=== PATIENT | female | born 1995 | race Caucasian/White ===

== ENCOUNTER 2017-05-12 15:05 | Emergency (ER) | payer MEDICAID, SELFPAY ==
[2017-05-12 15:06] VITALS: BP 124/73; PULSE 103; RESP 16; TEMP 36.6; O2SAT 98; BMI 26.6
[2017-05-12] MEDS: DiphenhydrAMINE 50 MG/ML Syringe 25 MG IV (15:35)
[2017-05-12] MEDS: 0.9% Normal Saline 1,000 ML 1000 ML IV (15:36)
[2017-05-12] MEDS: proCHLORPERazine 10 MG/2 ML Vial IV (15:39)
--- NOTE | 2017-05-12 16:15 | ED.VISSUMM ---
- ER Visit Summary Date of Service: 05/12/17 Chief Complaint: [Headache] History of Present Illness: The patient is a 21 F [presents the emergency department with a headache that started 4 days ago. Patient states that the headache was intermittent for the first couple of days but has been continuous today. Patient describes the headache as throbbing behind both eyes and rates it as a 7 out of 10. Patient is also 16 weeks and was seen by BELLMAN DRIVER today and sent to the ER for further evaluation of her headache. Patient states that she has had similar prior headaches in the past that she thought were migraines. Patient denies any falls or head injuries. Patient denies any recent illness.] Patient does complain of nausea and photophobia. Patient describes seeing some dots in her vision the intermittently both eyes. Physical Examination: [HEENT-PERRLA, EOMI. Cranial nerves II through XII grossly intact. TMs clear. Mucous membranes moist. No adenopathy. Cardiovascular-regular rate and rhythm without murmur or ectopy Lungs-clear to auscultation, chest wall stable without crepitus or subcu emphysema Abdomen-normoactive bowel sounds, soft, nontender, no rebound or rigidity, no peritoneal signs. Neuro xazb-mrghgx-olux and heel andrew testing within normal limits, negative Romberg, negative pronator drift, fundi benign Extremities-intact ?4, normal range of motion, normal pulses, atraumatic] Test Results: [None indicated] Emergency Department Course and Treatment: [Patient had an IV line established and was medicated with Compazine, normal saline, and Benadryl. Patient also was given Decadron 10 mg IV. Patient's headache essentially resolved.] Treatment Plan: [Follow-up with her BELLMAN DRIVER or primary care physician within next 3-5 days. At this point I do not feel any further imaging is indicated. I do not feel patient has a dural venous sinus thrombosis. Patient has no family history of brain tumors or aneurysms.] Disposition: [Discharged home in stable condition] Impression: [Cephalgia- migraine] This note was generated with [employer] software. It may contain incorrect words, spelling, and punctuation that were not noted in review of the chart prior to signing ED Disposition - Plan for ED Patient: Chief Complaint: Headache Referrals: Dragan Rosenbaum MD [Primary Care Provider] -
--- NOTE | 2017-05-12 16:18 | ED.DCSUM_ITS ---
- ER Visit Summary Date of Service: 05/12/17 Chief Complaint: [Headache] History of Present Illness: The patient is a 21 F [presents the emergency department with a headache that started 4 days ago. Patient states that the headache was intermittent for the first couple of days but has been continuous today. Patient describes the headache as throbbing behind both eyes and rates it as a 7 out of 10. Patient is also 16 weeks and was seen by HIGH SCHOOL SOCIAL STUDIES TEACHER today and sent to the ER for further evaluation of her headache. Patient states that she has had similar prior headaches in the past that she thought were migraines. Patient denies any falls or head injuries. Patient denies any recent illness.] Patient does complain of nausea and photophobia. Patient describes seeing some dots in her vision the intermittently both eyes. Physical Examination: [HEENT-PERRLA, EOMI. Cranial nerves II through XII grossly intact. TMs clear. Mucous membranes moist. No adenopathy. Cardiovascular-regular rate and rhythm without murmur or ectopy Lungs-clear to auscultation, chest wall stable without crepitus or subcu emphysema Abdomen-normoactive bowel sounds, soft, nontender, no rebound or rigidity, no peritoneal signs. Neuro snjs-wqpmic-ymap and heel andrew testing within normal limits, negative Romberg, negative pronator drift, fundi benign Extremities-intact ?4, normal range of motion, normal pulses, atraumatic] Test Results: [None indicated] Emergency Department Course and Treatment: [Patient had an IV line established and was medicated with Compazine, normal saline, and Benadryl. Patient also was given Decadron 10 mg IV. Patient's headache essentially resolved.] Treatment Plan: [Follow-up with her HIGH SCHOOL SOCIAL STUDIES TEACHER or primary care physician within next 3-5 days. At this point I do not feel any further imaging is indicated. I do not feel patient has a dural venous sinus thrombosis. Patient has no family history of brain tumors or aneurysms.] Disposition: [Discharged home in stable condition] Impression: [Cephalgia- migraine] This note was generated with [employer] software. It may contain incorrect words, spelling, and punctuation that were not noted in review of the chart prior to signing ED Disposition - Plan for ED Patient: Chief Complaint: Headache Referrals: Dragan Rosenbaum MD [Primary Care Provider] -
--- NOTE | 2017-05-12 16:18 | ED.DEP ---
ED Disposition - Plan for ED Patient: Chief Complaint: Headache Instructions: ED Headache Migraine Referrals: Dragan Rosenbaum MD [Primary Care Provider] - 3-5 Days
[2017-05-12 16:30] VITALS: BP 106/66; PULSE 98; RESP 14; O2SAT 99
--- NOTE | 2017-05-12 16:31 | ED.RN ---
PT GIVEN WRITTEN AND VERBALIZES UNDERSTANDING OF DISCHARGE INSTRUCTIONS. PT IV D/C AND COVERED WITH 2X2 GAUZE DRESSING. PT AMBULATORY HOME. REPORTS BOYFRIEND IS COMING TO PICK HER UP. PT EDUCATED NOT TO DRIVE AFTER HAVING BENADRYL AND COMPAZINE BECAUSE OF SIDE EFFECTS.
== END 2017-05-12 16:33 | disposition home or self-care (01) ==
LOC: ED 15:20
PROVIDERS: Emergency Provider Emergency Medicine; Family Provider Family Medicine; PCP Family Medicine
DX: O99.89 Other specified diseases and conditions complicating pregnancy, childbirth and the puerperium (principal); G43.909 Migraine, unspecified, not intractable, without status migrainosus; Z3A.16 16 weeks gestation of pregnancy
CPT/HCPCS: 96361; 96374; 96375; 99283; J7050; A4216

== ENCOUNTER 2017-05-15 19:31 | Emergency (ER) | payer MEDICAID, SELFPAY ==
[2017-05-12 16:30] VITALS: BP 106/66
[2017-05-15 19:33] VITALS: BP 107/79; PULSE 107; RESP 15; TEMP 36.4; BMI 26.9
--- NOTE | 2017-05-15 20:46 | ED.DCSUM_ITS ---
- ER Visit Summary Date of Service: 05/15/17 Chief Complaint: [] URI symptoms, chest pain History of Present Illness: The patient is a 21 F [] ending of mild cough, midsternal chest discomfort, weakness during the peak of flu season. Patient reports she is 17 weeks . . Denies fevers. No other complaints at this time. Physical Examination: [] Afebrile, vital signs stable. HEENT reveals moist mucous membranes. No posterior oropharyngeal erythema. Cardiovascular exam is regular rate and rhythm. Lungs are clear to auscultation. Abdomen is gravid, soft, nontender. Test Results: [] X-ray: Negative Influenza swab: Negative. Emergency Department Course and Treatment: [] Patient was able to pass a p.o. challenge. Patient has a very benign presentation. Chest x-ray was negative. Patient was encouraged to follow-up with her primary care physician. Treatment Plan: [] Follow-up with PCP or ASSOCIATE ACCOUNTANT. Disposition: [] Discharge, stable. Impression: [] URI This note was generated with [employer] dictation software. It may contain incorrect words, spelling, and punctuation that were not noted in review of the chart prior to signing ED Disposition - Plan for ED Patient: Chief Complaint: General Illness Referrals: Dragan Rosenbaum MD [Primary Care Provider] -
--- NOTE | 2017-05-15 20:53 | RAD_ITS ---
STUDY: X-RAY CHEST REASON FOR EXAM: Female, 21 years old. Cough. TECHNIQUE: PA and lateral views of the chest. COMPARISON: None. FINDINGS: The lungs are clear and expanded. There is no demonstrated pleural abnormality. Normal size heart. Normal mediastinum and mendy. Normal visualized pulmonary arteries. Normal visualized aortic arch and descending thoracic aorta. Normal visualized thoracic spine. Normal visualized ribs, clavicles, and shoulders. There is no demonstrated abnormality of the visualized soft tissue structures of the upper abdomen. RAD/Chest PA and Lateral IMPRESSION: No acute cardiopulmonary process. Electronically Signed: Rocio Gallegos MD at 21:27 EST Tel , Service support ,
[2017-05-15 21:40] VITALS: BP 103/72; PULSE 63; RESP 18; O2SAT 98
--- NOTE | 2017-05-15 22:17 | ED.DEP ---
ED Disposition - Plan for ED Patient: Disposition: Home or Assisted Living Chief Complaint: General Illness Instructions: ED URI Viral Referrals: Dragan Rosenbaum MD [Primary Care Provider] -
== END 2017-05-15 22:32 | disposition home or self-care (01) ==
PROVIDERS: Emergency Provider Emergency Medicine; Family Provider Family Medicine; PCP Family Medicine
DX: O99.512 Diseases of the respiratory system complicating pregnancy, second trimester (principal); J06.9 Acute upper respiratory infection, unspecified; Z3A.17 17 weeks gestation of pregnancy
CPT/HCPCS: 71046; 87804; 99283

== ENCOUNTER 2017-07-25 00:45 | Emergency (ER) | payer MEDICAID, SELFPAY ==
[2017-07-25 00:46] VITALS: BP 129/72; PULSE 97; RESP 17; TEMP 36.5; O2SAT 95; BMI 30.7
--- NOTE | 2017-07-25 00:55 | EKG12_ITS ---
Test Reason : COUGH Blood Pressure : / mmHG Vent. Rate : 097 BPM Atrial Rate : 097 BPM P-R Int : 148 ms QRS Dur : 066 ms QT Int : 366 ms P-R-T Axes : 042 023 004 degrees QTc Int : 464 ms Normal sinus rhythm with sinus arrhythmia Normal ECG Confirmed by ANABEL VENEGAS, BLU ([id number]), video effects editor DEMETRIO SONG ([id number]) on 07/27/2017 2:32:12 PM Referred By: CD Confirmed By:BLU LITTLE MD
--- NOTE | 2017-07-25 00:55 | CT_ITS ---
STUDY: CTA CHEST REASON FOR EXAM: Female, 21 years old. Cough RADIATION DOSAGE (If Supplied By Facility): CTDIvol = ( 12.46 ) mGy, DLP = ( 458.14 ) mGycm TECHNIQUE: The examination was performed with the intravenous administration of 75ml ml of Isovue 370 contrast material. Post-processing of the angiographic images was performed, with multiplanar reformation and 3D reconstruction. Individualized dose optimization techniques were used for this CT. COMPARISON: None. FINDINGS: Evaluation of the pulmonary arterial vasculature is limited due to timing of the contrast bolus. There is no definitive central pulmonary embolism. Lobar, segmental and subsegmental branches are limited in evaluation due to admixture of contrast. Thoracic aorta demonstrates no aneurysmal dilatation or dissection. Normal heart and pericardium. Normal mediastinum. Normal hilar regions. Normal visualized trachea and bronchi. The lungs are well expanded. Normal pulmonary parenchyma. No confluent airspace infiltrate. There is a 10 mm nodule in the right perihilar region immediately anterior to the bronchovascular bundle. No pleural effusion or pneumothorax. Normal chest wall structures. Normal osseous structures. Normal visualized upper abdomen. CT/CTA Chest W/WO Contrast IMPRESSION: 1. No definitive evidence of acute pulmonary embolism with evaluation of the pulmonary arterial vasculature being markedly limited by the contrast bolus. 2. 10 mm right perihilar noncalcified nodule. Electronically Signed: Aurelio Dee MD at 2:23 EDT Tel , Service support ,
[2017-07-25 00:57] VITALS: O2SAT 96
[2017-07-25 00:59] VITALS: PULSE 85; RESP 17; O2SAT 99
--- NOTE | 2017-07-25 00:59 | ED.DCSUM_ITS ---
- ER Visit Summary Date of Service: 07/25/17 Chief Complaint: Cough History of Present Illness: The patient is a 21 F with a cough that started about 4 days ago. Intermittent. Dry. Today she is having sharp left-sided chest pain and shortness of breath. She has a history of exercise-induced asthma. She tried her inhaler, but it was not helping. She is 27 weeks , . No abdominal pain, bleeding, or discharge. No history of PE or DVT that she is aware of. No unilateral leg swelling or calf pain. Physical Examination: Heart rate 97. Otherwise vitals unremarkable. Afebrile. Sitting comfortably. No acute distress. Heart tachycardic but regular. Lungs clear. Skin normal. Calves soft and supple. Test Results: EKG shows sinus rhythm at a rate of 97. No sign of acute ischemia or infarction pattern. Will check labs and CTA. Emergency Department Course and Treatment: Patient is tachycardic with chest pain, shortness of breath, and cough. This is not similar to her prior asthma. She is . This is mildly concerning for PE. EKG, laboratory studies, and CT were performed. Risks of CT were discussed and the patient voiced understanding. EKG showed sinus rhythm at a rate of 97. Hemoglobin 10.9. Patient has no bleeding. Potassium 3.4, glucose 112, calcium 7.9. Troponin normal. CT was limited but there is no evidence of PE. She does have a right lung nodule, but nothing to explain her symptoms. heart tones were 148. Patient appears nontoxic and in no acute distress on reevaluation, vitals are stable. No new or worsening symptoms. I am not sure what is causing her symptoms. Does not appear to be a life-threatening process. She also does not have any symptoms related to her directly. No discharge, bleeding. No abdominal pain or contractions. heart tones appropriate. Patient will be discharged to follow-up with her doctor. Return for any new or worsening issues. Treatment Plan: As above Disposition: Discharge Impression: 1. 2. Right lung nodule 3. Chest pain, unclear etiology 4. Anemia This note was generated with [employer] software. It may contain incorrect words, spelling, and punctuation that were not noted in review of the chart prior to signing ED Disposition - Plan for ED Patient: Chief Complaint: Cough Referrals: Dragan Rosenbaum MD [Primary Care Provider] -
[2017-07-25 01:09] LABS: Absolute Lymphocyte Count 1.75 X10^3/ul (0.83-4.51); Absolute Neutrophil Count 5.2 X10^3/uL (2.0-7.7); Basophil# 0.01 X10^3/uL; Basophil% 0.1 % (0-1); Eosinophil# 0.19 X10^3/uL; Eosinophils% 2.5 % (0-5); Hematocrit 32.9 % (37-47); Hemoglobin 10.9 g/dl (12.0-15.0); Lymphocyte # 1.75 X10^3/ul (4.0); Lymphocyte % 22.7 % (19-41); Mean Corp Hgb Conc 33.1 g/gl (32-36); Mean Corpuscular Hgb 29.4 pg (27.0-32.0); Mean Corpuscular Volume 88.7 fL (81-99); Mean Platelet Vol. 8.8 fl (6.2-12.0); Monocyte# 0.54 X10^3/uL; Neutrophil # 5.23 X10^3/uL (2.7-7.7); Neutrophil % 67.7 % (47-70); POSITIVE COUNT NO; POSITIVE DIFFERENTIAL NO; POSITIVE MORPHOLOGY NO; Platelet Count 231 K/mm3 (150-450); RBC Distribution Width CV 13.4 % (11.6-14.6); RBC Distribution Width SD 42.9 fl (35.1-43.9); Red Blood Count 3.71 M/mm3 (4.2-5.4); White Blood Count 7.7 K/mm3 (4.4-11.0)
[2017-07-25 01:26] LABS: Anion Gap 8 (5-15); BUN 6 mg/dL (7-18); BUN/Creat Ratio 8.1 RATIO (10-20); Calcium,Total 7.9 mg/dL (8.5-10.1); Chloride 111 mmol/L (98-107); Creatinine, Serum 0.74 mg/dL (0.55-1.02); EST Glomerular Filtration Rate 107 mL/min (>60); Est Glom Filt Rate - Afr Amer 130 mL/min (>60); Estimated Creatinine Clearance 92.27 ml/min; Glucose 112 mg/dL (74-106); Potassium 3.4 mmol/L (3.5-5.1); Sodium Level 142 mmol/L (136-145)
--- NOTE | 2017-07-25 02:40 | ED.DEP ---
ED Disposition - Plan for ED Patient: Chief Complaint: Cough Instructions: ED Reactive Airway Disease Referrals: Dragan Rosenbaum MD [Primary Care Provider] - Additional Instructions: Also follow up with your ob doctor early this week.
[2017-07-25 02:43] VITALS: BP 110/73; PULSE 98; RESP 15; O2SAT 98
--- NOTE | 2017-07-25 02:47 | ED.RN ---
PT GIVEN WRITTEN AND VERBAL DISCHARGE INSTRUCTIONS AND PT VERBALIZES UNDERSTANDING. PT IV D/C AND COVERED WITH 2X2 GAUZE DRESSING. PT DENIES ANY QUESTIONS, AND IS TO FOLLOW UP WITH OB. PT ADVISED TO RETURN TO ER WITH ANY NEW OR WORSENED SX. PT DRESSES SELF AND AMBULATES OUT OF DEPT WITHOUT ASSISTANCE.
== END 2017-07-25 02:49 | disposition home or self-care (01) ==
LOC: ED 01:33
PROVIDERS: Emergency Provider Emergency Medicine; Family Provider Family Medicine; PCP Family Medicine
DX: O99.89 Other specified diseases and conditions complicating pregnancy, childbirth and the puerperium (principal); R91.1 Solitary pulmonary nodule; R07.9 Chest pain, unspecified; R00.0 Tachycardia, unspecified; O99.012 Anemia complicating pregnancy, second trimester; D64.9 Anemia, unspecified; O99.512 Diseases of the respiratory system complicating pregnancy, second trimester; J45.990 Exercise induced bronchospasm; Z3A.27 27 weeks gestation of pregnancy
CPT/HCPCS: 71275; 80048; 84484; 85025; 93005; 99285; Q9967

== ENCOUNTER 2017-07-30 19:18 | Outpatient (CLI) | payer MEDICAID, SELFPAY ==
[2017-07-30 20:02] VITALS: BMI 29.2
[2017-07-30 20:18] LABS: Mucous, Urine 0 SEEN /hpf (<or=2+); Red Blood Cells-Urine 0 SEEN /hpf (0-5)
[2017-07-30 20:19] LABS: Color, Urine Yellow (Yellow); Glucose, Dipstick Normal (Normal); Ketone-Dipstick Negative (Negative); Leukocyte Esterase-Dipstick Negative /ul (Negative); Nitrite-Dipstick Negative (Negative); Occult Blood-Urine Negative /ul (Negative); Protein-Dipstick Negative (Negative); Urine Bilirubin Dipstick Negative (Negative); Urine Clarity Cloudy (Clear); Urine Urobilinogen Normal (Normal)
[2017-07-30 20:36] LABS: Bacteria RARE /hpf (None Seen); Squamous Epithelial Cells - UA 5-10 SEEN /hpf (5-10); White Blood Cells 0-5 SEEN /hpf (0-5)
--- NOTE | 2017-07-30 22:57 | OB.TRI.NOTE ---
History of Present Illness Date of Service: 07/30/17 Was patient seen by the physician?: Yes Reason For Visit: R/O LABOR Date of Service: 07/30/17 Final BISHNU: 10/25/17 Final BISHNU Source: LMP Gestational age: 27 Weeks and 4 Days History of Present Illness: Presented to L&D with abdominal cramping that started intermittently since this am. Increased pain and back pain since 3pm today. Denies any vaginal bleeding, leakage of fluid, headache, scotoma, chest pain, shortness of breath, or dysuria. Not able to time cramping. Home Medications Medication Instructions Recorded Pnv No.122/Iron/Folic Acid 1 each PO DAILY 05/12/17 [ Multi Tablet] Albuterol Inhaler [Ventolin Hfa 1 - 2 puff INHALATION Q6H PRN PRN 07/25/17 (SP)] Allergies Penicillins Allergy (Unknown, Verified 07/30/17 20:03) Diarrhea family history nickel Allergy (Verified 07/30/17 20:03) Rash venom-honey bee [bee venom (honey bee)] Allergy (Verified 07/30/17 20:03) Swelling NST - FHR Rate Baby A Baseline: 130 Variability:: Moderate Accelerations:: 15 x 15 Decelerations:: None, Variable NST Reactive:: Yes FHR Category:: Category I Uterine Activity:: irritability Impression/Plan A: False Labor P: 1) PO hydration 2) Reviewed PTL precautions. No cervical change and improvement in abdominal pain. 3) UA negative. Eli Geronimo, MSN, PSYCHOLOGIST RESEARCH ASSISTANT, CNM
== END 2017-07-30 22:19 | disposition home or self-care (01) ==
LOC: WPOUT 19:57 → WP 19:57
PROVIDERS: Family Provider Family Medicine; PCP Family Medicine; Visit Provider Obstetrics & Gynecology
DX: O47.02 False labor before 37 completed weeks of gestation, second trimester (principal); Z3A.27 27 weeks gestation of pregnancy
CPT/HCPCS: 59025; 59050; 81001; 99218; G0378

== ENCOUNTER 2017-09-05 15:35 | Outpatient (CLI) | payer MEDICAID, SELFPAY ==
[2017-09-05 16:14] VITALS: BMI 30.9
[2017-09-05 16:41] LABS: Color, Urine Yellow (Yellow); Glucose, Dipstick 50 mg/dl (Normal); Ketone-Dipstick 5 mg/dl (Negative); Leukocyte Esterase-Dipstick Negative /ul (Negative); Nitrite-Dipstick Negative (Negative); Occult Blood-Urine Negative /ul (Negative); Protein-Dipstick 30 mg/dl (Negative); Urine Bilirubin Dipstick Negative (Negative); Urine Clarity Sl. Cloudy (Clear); Urine Urobilinogen Normal (Normal); Urine pH 6.5 (5.0 - 8.0)
--- NOTE | 2017-09-07 12:17 | OB.TRI.NOTE ---
History of Present Illness Date of Service: 09/05/17 Was patient seen by the physician?: Yes Reason For Visit: ABDOMINAL PAIN,DIZZINESS,NAUSEA Date of Service: 09/05/17 Final BISHNU: 10/25/17 Final BISHNU Source: LMP Gestational age: 33 Weeks and 1 Days History of Present Illness: Patient presented reporting increased abdominal pain, dizziness and nausea over last few hours. Patient was concerned that she may be in labor so she came to hospital for evaluation. Denied any LOF, VB or DFM. Patient reports increase in bladder pressure and reported dysuria a few days ago. Denies dysuria today. Home Medications Medication Instructions Recorded Pnv No.122/Iron/Folic Acid 1 each PO DAILY 05/12/17 [ Multi Tablet] Albuterol Inhaler [Ventolin Hfa 1 - 2 puff INHALATION Q6H PRN PRN 07/25/17 (SP)] Allergies Penicillins Allergy (Unknown, Verified 09/05/17 16:14) Diarrhea family history nickel Allergy (Verified 09/05/17 16:14) Rash venom-honey bee [bee venom (honey bee)] Allergy (Verified 09/05/17 16:14) Swelling - Pertinent Past Medical History Pertinent Past Medical History: See [facility] Record for review of Family Hx, PMH and Surg Hx Physical Exam Vitals: See Nursing note for vitals and physical exam NST - FHR Rate Baby A Baseline: 140 Variability:: Moderate Accelerations:: 15 x 15 Decelerations:: None NST Reactive:: Yes, Appropriate for gestational age FHR Category:: Category I Uterine Activity:: Uterine irritability noted on tocometer, no regular pattern noted Impression/Plan 21 y/o @ 33.1 weeks, Category I FHT P: 1) Per nursing staff, patients symptoms quickly resolved upon admission to triage 2) Urine macrodip overall negative though CCMS collected and sent d/t patient report of past dysuria a few days ago - will contact patient once results received. 3) Discharge patient to home, patient to f/u as scheduled in provider office. Dayanara RUIZ
== END 2017-09-05 17:40 | disposition home or self-care (01) ==
LOC: WPOUT 16:12 → WP 16:13
PROVIDERS: Family Provider Family Medicine; PCP Family Medicine; Visit Provider Advanced Practice Midwife
DX: O26.893 Other specified pregnancy related conditions, third trimester (principal); R10.9 Unspecified abdominal pain; R30.0 Dysuria; O99.89 Other specified diseases and conditions complicating pregnancy, childbirth and the puerperium; R42 Dizziness and giddiness; Z3A.33 33 weeks gestation of pregnancy
CPT/HCPCS: 59025; 59050; 81002; 87086; 87088; 99218; G0378

== ENCOUNTER 2017-09-11 16:35 | Outpatient (CLI) | payer MEDICAID, SELFPAY ==
[2017-09-11 18:17] VITALS: BMI 28.3
--- NOTE | 2017-11-09 23:17 | OB.TRI.NOTE ---
History of Present Illness Date of Service: 09/11/17 Was patient seen by the physician?: No Reason For Visit: ABD PAIN Final BISHNU Source: LMP Allergies Penicillins Allergy (Unknown, Verified 11/08/17 09:55) Diarrhea family history nickel Allergy (Verified 11/08/17 09:55) Rash venom-honey bee [bee venom (honey bee)] Allergy (Verified 11/08/17 09:55) Swelling - Pertinent Past Medical History Medical History: Past Medical History (Last Reviewed 11/08/17 @ 09:55 by Letitia Peraza) Asthma (Chronic) Surgical History: Past Surgical History (Last Reviewed 11/08/17 @ 09:55 by Letitia Peraza) History of placement of ear tubes S/P S/P tonsillectomy and adenoidectomy Impression/Plan NST for threatened PTL
== END 2017-09-11 18:10 | disposition home or self-care (01) ==
LOC: WPOUT 16:45 → WP 16:46
PROVIDERS: Family Provider Family Medicine; PCP Family Medicine; Visit Provider Obstetrics & Gynecology
DX: O60.00 Preterm labor without delivery, unspecified trimester (principal); Z3A.00 Weeks of gestation of pregnancy not specified
CPT/HCPCS: 59025; 59050; 99218; G0378

== ENCOUNTER 2017-09-12 00:12 | Outpatient (CLI) | payer MEDICAID, SELFPAY ==
[2017-09-12 01:36] VITALS: BMI 31.4
--- NOTE | 2017-09-12 08:14 | OB.TRI.NOTE ---
History of Present Illness Date of Service: 09/12/17 Reason For Visit: R/O LABOR Final BISHNU: 10/25/17 Final BISHNU Source: LMP Gestational age: 33 Weeks and 6 Days Allergies Penicillins Allergy (Unknown, Verified 09/12/17 01:42) Diarrhea family history nickel Allergy (Verified 09/12/17 01:42) Rash venom-honey bee [bee venom (honey bee)] Allergy (Verified 09/12/17 01:42) Swelling NST - FHR Rate Baby A Baseline: 130 Variability:: Moderate Accelerations:: 15 x 15 NST Reactive:: Yes Uterine Activity:: irregular Impression/Plan Reactive NST for threatened PTL
== END 2017-09-12 01:50 | disposition home or self-care (01) ==
LOC: WPOUT 01:06 → WP 01:06
PROVIDERS: Family Provider Family Medicine; PCP Family Medicine; Visit Provider Obstetrics & Gynecology
DX: O60.03 Preterm labor without delivery, third trimester (principal); Z3A.33 33 weeks gestation of pregnancy
CPT/HCPCS: 59025; 59050; 99218; G0378

== ENCOUNTER → 2017-10-01 17:23 | Outpatient (CLI) | payer MEDICAID, SELFPAY ==
[2017-10-01 18:29] LABS: Group B Strep DNA By PCR Negative (Negative); Internal Control PASS; Probe Check PASS; Specimen Processing Control PASS
== END ==
PROVIDERS: Family Provider Family Medicine; PCP Family Medicine; Visit Provider Obstetrics & Gynecology
DX: Z34.90 Encounter for supervision of normal pregnancy, unspecified, unspecified trimester (principal)
CPT/HCPCS: 87081; 87653

== ENCOUNTER → 2017-10-06 13:58 | Outpatient (CLI) | payer MEDICAID, SELFPAY ==
--- NOTE | 2017-10-06 14:00 | US_ITS ---
STUDY: SECOND AND THIRD TRIMESTER OBSTETRICAL ULTRASOUND - LIMITED REASON FOR EXAM: Female, 21 years old. growth . LMP: 01/18/2017 PRIOR ULTRASOUND: None. TECHNIQUE: Transabdominal ultrasound evaluation was performed. FINDINGS: There is a single intrauterine fetus. The fetus is in a cephalic presentation. There is demonstrated cardiac activity with a heart rate of 156 bpm. There is a normal amniotic fluid volume. The largest amniotic fluid pocket measures 4.6 cm. The amniotic fluid index (VLAD) is 9.9 cm. The placenta is anterior in location and is not low lying. There are Grade 1-2 placental changes. The cervix is not visualized. BIOMETRY: BPD: 8.9 cm: 36 weeks, 1 days HC: 32.4 cm: 36 weeks, 5 days AC: 32.3 cm: 36 weeks, 2 days FL: 6.9 cm: 85 weeks, 3 days Age by LMP: 37 weeks, 2 days. BISHNU by LMP: 10/25/2017. age by current US: 36 weeks, 1 days. BISHNU by current US: 11/02/2017. Estimated weight: 2828 grams, +/- 413 grams, 26 percentile. Gender: Female US/OB Limited With Biometrics IMPRESSION: 1. Single live intrauterine in vertex presentation 36 week 1 day gestation with an BISHNU of 11/02/2017, BISHNU by LMP 10/25/2017. 2. Anterior grade 1-2 placenta, not low-lying. 3. Cervix is obscured. 4. Amniotic fluid index 9.9 cm. 5. Estimated weight 2828 g/26 percentile. Electronically Signed: Renee Bacon MD at 6:41 EDT , Service support ,
== END ==
PROVIDERS: Family Provider Family Medicine; PCP Family Medicine; Visit Provider Obstetrics & Gynecology
DX: O36.5930 Maternal care for other known or suspected poor fetal growth, third trimester, not applicable or unspecified (principal); Z3A.36 36 weeks gestation of pregnancy
CPT/HCPCS: 76816

== ENCOUNTER 2017-10-10 17:40 | Outpatient (CLI) | payer MEDICAID, SELFPAY ==
[2017-10-10 17:54] VITALS: BMI 32.1
--- NOTE | 2017-10-10 19:05 | OB.TRI.NOTE ---
- Problem List (1) False labor Status: Acute History of Present Illness Date of Service: 10/10/17 Was patient seen by the physician?: Yes Reason For Visit: ROL Date of Service: 10/10/17 Final BISHNU Source: LMP History of Present Illness: contractions pressure and decreased movement Allergies Penicillins Allergy (Unknown, Verified 10/10/17 17:56) Diarrhea family history nickel Allergy (Verified 10/10/17 17:56) Rash venom-honey bee [bee venom (honey bee)] Allergy (Verified 10/10/17 17:56) Swelling - Pertinent Past Medical History Medical History: Past Medical History (Last Reviewed 10/07/17 @ 10:40 by Letitia Peraza) Asthma (Chronic) Surgical History: Past Surgical History (Last Reviewed 10/07/17 @ 10:40 by Letitia Peraza) History of placement of ear tubes S/P S/P tonsillectomy and adenoidectomy NST - FHR Rate Baby A Baseline: 130-140 Variability:: Moderate Accelerations:: 15 x 15 Decelerations:: None NST Reactive:: Yes FHR Category:: Category I Uterine Activity:: irreuglar Impression/Plan reactive nst decreased fm and false labor not dilated signficiantly dc home labor precautions kick counts
== END 2017-10-10 18:45 | disposition home or self-care (01) ==
LOC: WPOUT 17:48 → WP 17:50
PROVIDERS: Family Provider Family Medicine; PCP Family Medicine; Visit Provider Obstetrics & Gynecology
DX: O47.9 False labor, unspecified (principal); O36.8190 Decreased fetal movements, unspecified trimester, not applicable or unspecified; O99.519 Diseases of the respiratory system complicating pregnancy, unspecified trimester; J45.909 Unspecified asthma, uncomplicated; Z3A.00 Weeks of gestation of pregnancy not specified
CPT/HCPCS: 59025; 59050; 99218; G0378

== ENCOUNTER 2017-10-13 22:18 | Outpatient (CLI) | payer MEDICAID, SELFPAY ==
[2017-10-13 22:56] VITALS: BMI 32.2
[2017-10-13] MEDS: Acetaminophen 500 MG Tablet 1000 MG PO (23:50)
[2017-10-13 23:54] LABS: Bacteria 0 SEEN /hpf (None Seen); Mucous, Urine 0 SEEN /hpf (<or=2+); Red Blood Cells-Urine 0 SEEN /hpf (0-5); White Blood Cells 0 SEEN /hpf (0-5)
[2017-10-13 23:55] LABS: Color, Urine Yellow (Yellow); Glucose, Dipstick Normal (Normal); Ketone-Dipstick 5 mg/dl (Negative); Leukocyte Esterase-Dipstick Negative /ul (Negative); Nitrite-Dipstick Negative (Negative); Occult Blood-Urine Negative /ul (Negative); Protein-Dipstick Negative (Negative); Specific Gravity, Urine 1.005 (1.002-1.030); Urine Bilirubin Dipstick Negative (Negative); Urine Clarity Sl. Cloudy (Clear); Urine Urobilinogen Normal (Normal)
[2017-10-14] LABS: Squamous Epithelial Cells - UA 0-5 SEEN /hpf (5-10)
--- NOTE | 2017-10-14 02:53 | OB.TRI.NOTE ---
- Problem List (1) False labor Status: Acute History of Present Illness Date of Service: 10/14/17 Was patient seen by the physician?: Yes Reason For Visit: R/O LABOR Date of Service: 10/14/17 Final BISHNU: 10/24/17 Final BISHNU Source: LMP Gestational age: 38 Weeks and 4 Days History of Present Illness: 21 yo @ 38 weeks presents with ctx and headaches. she has had intermittent contractions for the past few days with no vb or lof, admits good fm. co headache on the front of her head, nausea. Allergies Penicillins Allergy (Unknown, Verified 10/13/17 23:00) Diarrhea family history nickel Allergy (Verified 10/13/17 23:00) Rash venom-honey bee [bee venom (honey bee)] Allergy (Verified 10/13/17 23:00) Swelling - Pertinent Past Medical History Medical History: Past Medical History (Last Reviewed 10/12/17 @ 10:24 by Claudia Jeffrey) Asthma (Chronic) Surgical History: Past Surgical History (Last Reviewed 10/12/17 @ 10:24 by Claudia Jeffrey) History of placement of ear tubes S/P S/P tonsillectomy and adenoidectomy Physical Exam General: Alert, Cooperative, No apparent distress Abdomen: Soft, Non Tender, Gravid Cervix Dilation (cm): 0 NST - FHR Rate Baby A Baseline: 140 Variability:: Moderate Accelerations:: 15 x 15 Decelerations:: None NST Reactive:: Yes FHR Category:: Category I Uterine Activity:: irritability Impression/Plan 21 yo @ 38w4d presents with false labor, isolated mild variable. 8/8 BPP and VLAD 14 cm. reassuring, no cervical change, recommend dc home. plan RLTCS 39 weeks
== END 2017-10-14 03:05 | disposition home or self-care (01) ==
LOC: WPOUT 22:52 → WP 22:53
PROVIDERS: Family Provider Family Medicine; PCP Family Medicine; Visit Provider Obstetrics & Gynecology
DX: O47.1 False labor at or after 37 completed weeks of gestation (principal); Z3A.38 38 weeks gestation of pregnancy
CPT/HCPCS: 59025; 59050; 76815; 81001; 99218; G0378

== ENCOUNTER 2017-10-17 19:39 | Inpatient (IN) | payer MEDICAID, SELFPAY ==
[2017-10-17] VITALS (9 sets, daily range): BP systolic 98–119; BP diastolic 36–70; PULSE 89–124; RESP 18; TEMP 36.2–36.9; O2SAT 95–99; BMI 32.1
--- NOTE | 2017-10-17 19:47 | PCM.HP.OB ---
- Problem List (1) Late deceleration of heart rate Status: Acute (2) History of depression Status: Acute Comment: monitor for symptoms (3) Chlamydia infection affecting Status: Acute Qualifiers: Comment: recheck at 36 weeks (4) Rh negative status during Status: Acute Qualifiers: Comment: rhogam given at 28 wks at [facility] (5) Supervision of normal Status: Acute Qualifiers: Comment: PRR BISHNU 10/25/17 neyda PC Edi boyfriend James [facility] (6) Previous delivery affecting , antepartum Status: Acute Comment: planning , 81% chance of success, education given and consent signed NOB at [facility] urine culture negative (7) Asthma Status: Chronic Qualifiers: History Date of Admission: 10/17/17 Final BISHNU: 10/25/17 Final BISHNU Source: LMP Gestational age: 38 Weeks and 6 Days History of this : This is a 21 year-old, G [], P [], at weeks gestational age. Medical History: Medical History (Last Reviewed 10/12/17 @ 10:24 by Claudia Jeffrey) Asthma (Chronic) J45.909 Surgical History: Surgical History (Last Reviewed 10/12/17 @ 10:24 by Claudia Jeffrey) History of placement of ear tubes Z96.22 S/P Z98.891 S/P tonsillectomy and adenoidectomy Z90.89 Allergies Penicillins Allergy (Unknown, Verified 10/13/17 23:00) Diarrhea family history nickel Allergy (Verified 10/13/17 23:00) Rash venom-honey bee [bee venom (honey bee)] Allergy (Verified 10/13/17 23:00) Swelling Smoking Status: Never smoker Alcohol: None Number of Fetus(es): 1 Heart Tracin moderate variability reactive one late decel overall category I tracing TOCO Analysis: q2-3 History Past Pregnancies: Past Pregnancies previous term cs for NRFHTs Labs: Social History Smoking Status Never smoker Expected Infant Delivery Method: Repeat Section Number of Visits: 2 Review of Systems Constitutional: Denies: Fever, Malaise Eyes: Denies: Blurred vision, Vision Change HEENT: Denies: Head Aches, Visual Changes Cardiovascular: Denies: Chest Pain, Palpitations Respiratory: Denies: Cough, Shortness of Breath, Wheezing Gastrointestinal: Reports: Abdominal Pain, Nausea. Denies: Diarrhea, Vomiting Genitourinary: Denies: Dysuria, Hematuria Musculoskeletal: Denies: Joint Pain, Muscle pain Skin: Denies: Lesions, Rash Neurological: Denies: Blurred vision, Focal weakness, Headaches Psychiatric: Denies: Anxiety, Depression Endocrine: Denies: Heat/ Cold Intolerance Hematologic/ Lymphatic: Denies: Easy Bruising, Easy Bleeding Physical Exam General: Alert, Cooperative, No apparent distress HEENT: Atraumatic, Normocephalic. Negative for: Thyromegaly, Lymphadenopathy Cardiovascular: Regular rate Lungs: Normal air movement Abdomen: Soft, Non Tender, Gravid Neurological: Deep Tendon Reflexes 2+/4 and Symmetrical, Neuro grossly intact. Negative for: Clonus NUTRIENT MANAGEMENT SPECIALIST: Normal external genitalia. Negative for: Vulvar lesions Estimated gestational size: Appropriate for gestational size Presentation: Cephalic Cervix Dilation (cm): 0 Assessment/Plan All Active Problems (Last Reviewed 10/12/17 @ 10:24 by Claudia Jeffrey) False labor (Acute) Late deceleration of heart rate (Acute) Elevated glucose tolerance test (Acute) History of depression (Acute) Chlamydia infection affecting (Acute) Rh negative status during (Acute) Supervision of normal (Acute) Previous delivery affecting , antepartum (Acute) This is a 21 year-old, at 38w6d weeks gestational age. patient presents for abdominal pain and contractions- had late decel. overall reassuring but recommend delivery plan [facility]
[2017-10-17] MEDS: Lactated Ringers 1,000 ML 999 ML IV (20:00)
[2017-10-17 20:13] LABS: Absolute Lymphocyte Count 1.84 X10^3/ul (0.83-4.51); Absolute Neutrophil Count 6.1 X10^3/uL (2.0-7.7); Basophil# 0.01 X10^3/uL; Basophil% 0.1 % (0-1); Eosinophil# 0.07 X10^3/uL; Eosinophils% 0.8 % (0-5); Hematocrit 36.3 % (37-47); Hemoglobin 11.5 g/dl (12.0-15.0); Lymphocyte # 1.84 X10^3/ul (4.0); Lymphocyte % 21.1 % (19-41); Mean Corp Hgb Conc 31.7 g/gl (32-36); Mean Corpuscular Hgb 25.9 pg (27.0-32.0); Mean Corpuscular Volume 81.8 fL (81-99); Mean Platelet Vol. 9.1 fl (6.2-12.0); Neutrophil # 6.07 X10^3/uL (2.7-7.7); Neutrophil % 69.9 % (47-70); Platelet Count 286 K/mm3 (150-450); RBC Distribution Width CV 15.2 % (11.6-14.6); RBC Distribution Width SD 44.6 fl (35.1-43.9); Red Blood Count 4.44 M/mm3 (4.2-5.4); White Blood Count 8.7 K/mm3 (4.4-11.0)
[2017-10-17 20:14] LABS: POSITIVE COUNT NO; POSITIVE DIFFERENTIAL NO; POSITIVE MORPHOLOGY NO
[2017-10-17] MEDS: Sodium Citrate/Citric Acid 30 ML UDC PO (20:15)
[2017-10-17] MEDS: Cefazolin 2 GM in 0.9% Normal Saline 100 ML IV (20:40)
[2017-10-17] MEDS: Oxytocin 30 units/NS 500 ml 30 UNITS/500 ML IV.SOLN 167 UNITS IV (21:00)
[2017-10-17] MEDS: Ketorolac 30 MG/ML Syringe IV (21:30)
--- NOTE | 2017-10-17 21:35 | OP.PCM_ITS ---
Problem List (1) Late deceleration of heart rate Status: Acute (2) History of depression Status: Acute Comment: monitor for symptoms (3) Chlamydia infection affecting Status: Acute Qualifiers: Comment: recheck at 36 weeks (4) Rh negative status during Status: Acute Qualifiers: Comment: rhogam given at 28 wks at F (5) Supervision of normal Status: Acute Qualifiers: Comment: PRR BISHNU 10/25/17 neyda PC Edi boyfriend James [facility] (6) Previous delivery affecting , antepartum Status: Acute Comment: planning , 81% chance of success, education given and consent signed NOB at [facility] urine culture negative (7) Asthma Status: Chronic Qualifiers: Report of Operation Date of Procedure: 10/17/17 Pre-Operative Diagnosis: Late deceleration, declined trial of labor after C- section Post-Operative Diagnosis: Same Surgery/Procedure Performed:: Repeat low transverse Description of Surgical Findings:: normal uterus tubes ovaries nc x 1 management engineer: John Ham Type of Anesthesia:: Spinal Special Medications: ancef Specimen's removed: female Drains: white Estimated Blood Loss (mL): 600 Fluids Replaced: crystalloid Description of Procedure: The patient is a 21-year-old at 38 weeks 6 days presented with abdominal pain and contractions and was found to have a late deceleration on the monitor and regular contractions every 2-4 minutes, declined trial of labor for C- section and therefore the decision was made to proceed with a repeat . Spinal anesthesia was placed without difficulty. White catheter was placed. The patient was placed in the dorsal supine position with leftward tilt. Patient was prepped and draped in the normal sterile fashion. Pfannenstiel skin incision was made with the scalpel and carried through to the underlying layer of fascia with the scalpel. Fascia was nicked in the midline and the incision extended laterally. The peritoneum was entered digitally. The incision was stretched and a low transverse uterine incision was made with the scalpel. The 's head was delivered atraumatically followed by the anterior and posterior shoulders without complication the rest of the infant delivered. The cord was clamped and cut and the infant was handed off to awaiting nurse. The placenta was delivered spontaneously immediately following and was noted to be intact and have a three-vessel cord. The uterus was exteriorized cleared of all clots and debris, and the incision was closed in a double layer closure using #1 Monocryl. The uterus was returned to the maternal abdomen and gutters were cleared of all clots and debris. The ovaries and fallopian tubes were noted to be within normal limits. The peritoneum was closed with 3-0 Monocryl in a running fashion. Fascia was closed with 0 PDS in a running fashion. The previous scar and the skin was excised subcutaneous tissue was copiously irrigated and the skin was closed with 3-0 Monocryl in a subcuticular fashion. Steri-Strips and Mepilex dressing were applied without complication. Patient was taken to recovery in stable condition. Grafts/Implants Used: none - Complications none
[2017-10-17] MEDS: Lactated Ringers 1,000 ML 100 ML IV (21:40)
[2017-10-17] MEDS: proMETHazine 25 MG/ML Syringe 12.5 MG IV (23:10)
[2017-10-18] VITALS (15 sets, daily range): BP systolic 101–119; BP diastolic 41–70; PULSE 77–101; RESP 16–20; TEMP 36.2–37.2; O2SAT 96–100
[2017-10-18] MEDS: Ketorolac 30 MG/ML Syringe IV ×3 (03:00→15:54)
[2017-10-18] MEDS: 0.9% Saline Lock 10 ML Syringe IV (03:00)
[2017-10-18] MEDS: Lactated Ringers 1,000 ML 100 ML IV (04:58)
[2017-10-18 06:58] LABS: Hematocrit 26.4 % (37-47); Hemoglobin 8.2 g/dl (12.0-15.0); Mean Corp Hgb Conc 31.1 g/gl (32-36); Mean Corpuscular Hgb 25.5 pg (27.0-32.0); Mean Corpuscular Volume 82.2 fL (81-99); Mean Platelet Vol. 8.8 fl (6.2-12.0); Platelet Count 189 K/mm3 (150-450); RBC Distribution Width CV 15.2 % (11.6-14.6); RBC Distribution Width SD 45.4 fl (35.1-43.9); Red Blood Count 3.21 M/mm3 (4.2-5.4); White Blood Count 10.2 K/mm3 (4.4-11.0)
[2017-10-18 07:03] LABS: Scan Indicated on CBC? Y/N NO
--- NOTE | 2017-10-18 07:54 | PCM.PN.OB ---
Patient Problems: Active and Suspected Problems (Last Reviewed 10/12/17 @ 10:24 by Claudia Jeffrey) Late deceleration of heart rate (Acute) Subjective: No CP, SOB, nausea. Pain controlled. - Physical Exam General: Alert, Oriented x3 Abdomen: Soft, Non-Distended - FF below U. Dressing dry and intact Vital Signs Temp Pulse Resp BP Pulse Ox 98.9 F 91 16 101/51 L 99 10/18/17 07:35 10/18/17 07:35 10/18/17 07:35 10/18/17 07:35 10/18/17 07:35 Oxygen Delivery Method Room Air Weight: 169 lb 12.095 oz Body Mass Index (BMI) 32.1 Intake and Output for Last 24 Hours 10/16/17 10/17/17 10/18/17 23:59 23:59 23:59 Intake Total 800 / 800 1949 / 1949 Output Total 300 / 300 875 / 875 Balance 500 / 500 1074 / 1074 Laboratory Tests Past 24 Hrs 10/17/17 10/17/17 10/18/17 20:00 20:00 05:05 WBC 8.7 10.2 RBC 4.44 3.21 L Hgb 11.5 L 8.2 L Hct 36.3 L 26.4 L MCV 81.8 82.2 MCH 25.9 L 25.5 L MCHC 31.7 L 31.1 L RDW 15.2 H 15.2 H RDW Differential 44.6 H 45.4 H Plt Count 286 189 MPV 9.1 8.8 Immature Gran % (Auto) 0.100 Neut % (Auto) 69.9 Lymph % (Auto) 21.1 Terrell % (Auto) 8.0 Eos % (Auto) 0.8 Baso % (Auto) 0.1 Absolute Neuts (auto) 6.1 Absolute Lymphs (auto) 1.84 Total Counted Not Reportable Blood Type AB NEGATIVE Antibody Screen NEGATIVE Medical Necessity - Tobacco Use Smoking Status: Never smoker Assessment/Plan All Active Problems (Last Reviewed 10/12/17 @ 10:24 by Claudia Jeffrey) False labor (Acute) Late deceleration of heart rate (Acute) Elevated glucose tolerance test (Acute) History of depression (Acute) Chlamydia infection affecting (Acute) Rh negative status during (Acute) Supervision of normal (Acute) Previous delivery affecting , antepartum (Acute) R CS POD#1: Doing well. Routine care. Ambulate today. Pain controlled.
[2017-10-18] MEDS: Acetaminophen 500 MG Tablet 1000 MG PO ×2 (10:56→21:00)
[2017-10-18] MEDS: Senna/Docusate Sodium 1 Tablet PO (10:57)
--- NOTE | 2017-10-18 15:49 | CASEMGMT ---
Social Work Note Labor and Delivery Unit Social work consult noted due to maternal history of depression. Chart has been reviewed. Plan: will plan to meet with mother of baby, anticipating in the morning, on 10-19-17. -JASWINDER Christina, BULL RIVETER
[2017-10-18] MEDS: oxyCODONE 5 MG Tablet PO (21:01)
[2017-10-18] MEDS: Naproxen 250 MG Tablet PO (22:00)
[2017-10-19 01:11] VITALS: BP 117/53; PULSE 71; RESP 16; TEMP 36.1; O2SAT 97
[2017-10-19] MEDS: oxyCODONE 5 MG Tablet PO ×5 (01:14→21:51)
[2017-10-19] MEDS: Naproxen 250 MG Tablet PO ×2 (06:04→19:56)
--- NOTE | 2017-10-19 07:35 | PCM.PN.OB ---
Patient Problems: Active and Suspected Problems (Last Reviewed 10/12/17 @ 10:24 by Claudia Jeffrey) Late deceleration of heart rate (Acute) Subjective: No CP, SOB, nausea. Pain controlled. Ambulating. No issues with voiding. Has had BM, flatus - Physical Exam General: Alert, Oriented x3 Abdomen: Soft, Non-Distended Extremities: - - FF below U. Minimal tenderness with exam. Dressing dry and intact Vital Signs Temp Pulse Resp BP Pulse Ox 96.9 F L 71 16 117/53 L 97 10/19/17 01:11 10/19/17 01:11 10/19/17 01:11 10/19/17 01:11 10/19/17 01:11 Oxygen Delivery Method Room Air Weight: 169 lb 12.095 oz Body Mass Index (BMI) 32.1 Intake and Output for Last 24 Hours 10/17/17 10/18/17 10/19/17 23:59 23:59 23:59 Intake Total 800 / 800 4461 / 4461 Output Total 300 / 300 3625 / 3625 Balance 500 / 500 836 / 836 Medical Necessity - Tobacco Use Smoking Status: Never smoker Assessment/Plan All Active Problems (Last Reviewed 10/12/17 @ 10:24 by Claudia Jeffrey) False labor (Acute) Late deceleration of heart rate (Acute) Elevated glucose tolerance test (Acute) History of depression (Acute) Chlamydia infection affecting (Acute) Rh negative status during (Acute) Supervision of normal (Acute) Previous delivery affecting , antepartum (Acute) LTRCS POD#2: Doing well. . Pain controlled. Rh neg. Routine care
[2017-10-19 08:00] VITALS: BP 110/57; PULSE 86; RESP 16; TEMP 36.1; O2SAT 97
[2017-10-19] MEDS: Acetaminophen 500 MG Tablet 1000 MG PO ×2 (11:16→23:48)
[2017-10-19 12:00] VITALS: BP 111/60; PULSE 80; RESP 16; TEMP 36.6; O2SAT 98
--- NOTE | 2017-10-19 14:55 | CASEMGMT ---
Social Work Assessment Labor and Delivery Unit Date of Referral: 10/17/2017; 10/18/2017 Time of Referral: 2350; 0734 Referred By: Dr. Ye; Dr. Baker Date of Intervention: 10/19/2017 Time of Intervention: 1100 Reason for Referral: maternal history of depression History obtained from: Medical record and mother of baby (MOB) Cassie Eagle. Note, reported father of baby (FOB) sleeping on couch during social work visit, no movement or stirring noted for the entirety of social work visit. Household composition: MOB reports to live in an apartment with FOB, and for a short time FOBs friend is staying in the home. MOB older child lives there and MOB intends for baby to live there as well. MOB denies any safety concerns in this home, or any concerns about this friend living in the home. Patient's parent/guardian status: MOB (19 years old) and FOB James Bolton have been together for 4 years. Privately, in writing, inquired whether there has been any form of abuse in this relationship. MOB denies abuse, control, or any form of intimidation by FOB. MOB and FOB now have 2 children together. Minor children include: Edi (born [birth year]17) and Cintia (born 7[birth year]18). Medical History: KENDRA is G2, P1 to 2 after delivering infant. MOB started care at about 8 weeks through [facility] and then at 35 weeks transferred care to Dr. Ye. MOB delivered [place] at 38.6 weeks gestation. Baby weighed 7 pounds 5 ounces at and Apgars 9 and 9. are record indicated that MOB delivered Edi at [facility] and the baby spent time in a NICU. MOB reports NICU stay was related to hold in lungs, meconium delivery, jaundice and IUGR starting at 34 weeks gestation. Educational Status: MOB reports graduated from high school. MOB reports to, at times, have a hard time reading and did have an IEP in school for such. Financial Status: MOB does not currently work outside of the home. FOB works 3rd shift at [employer]. Infant Supplies: MOB reports to have needed infant supplies including a bassinet for sleeping, car seat, clothing, diapers, wipes, and a breast pump. Childcare/Caregiver(s): MOB. Transportation: MOB and FOB have a drivers license but share one car. MOB reports to be able to get to appointments when needed. Programs/Agencies Involved: MOB has medical through [facility], no food however as FOB makes too much money. MOB reports to have WIC. M[place] [facility] [place], as does not believe that had one after Edi was born. Children Services/Legal Issues: MOB denies any legal issues for self or FOB. MOB denies any children services involvement, past or present with Edi. Behavioral Health Issues: MOB reports history of depression as an adolescent, and did receive counseling through [facility]. MOB reports after Edi was born did have some depression, describing this as anger for about a month. MOB reports the only person that MOB was not angry with was Edi, that Edi provided calm to MOB. MOB reports it was more irritability with other adults. MOB reports was prescribed medicine but did not like it (reports not sure of the name) so did not take it. MOB reports would go outside and get fresh air, that this helped. MOB denies any history of suicidal thoughts, plans, or attempt or intent. MOB reports history of ADD as a child. MOB reports family history of bipolar disorder in MOBs father. MOB denies any illicit drug use history other than marijuana and reports marijuana was prior to any of MOBs pregnancies. MOB Denies heroin, cocaine, meth, or narcotic prescription drug abuse. MOB denies tobacco use. MOB had a negative drug screen prenatally on 19. Family/Social Stressors: MOB denies any stressors or changes at this time. MOB did have close intervals between pregnancies, but MOB reports wanted children close and to be happy about this baby soon after the first child was born. MOB with history of depression and PPD, not in current treatment. Support Systems: MOB reports FOB is a good help when home from work. MOB also reports MOBs father and stepmother live locally and are a good help. MOB reports can rely on these individuals to help when needs, adn reports that Dei likes to spend time at MOBs fathers home quite frequently. Depression/Shaken Baby/Safe Sleeping: Educated to depression, anxiety, risk present and importance for self-care, seeking help and support. MOB reports to would let doctor know if symptoms arise, and would be willing to take medicine this time if prescribed. MOB did not expand on what has changed from last time to this time, in regards to taking medicine. MOB able to give appropriate answers for shaken baby prevention. MOB also reports to know what safe sleeping means. ASSESSMENT: MOB cooperative with social work visit, held baby during the entirety of social work visit, looked at baby, smiled at baby, and was gentle. MOBs affect constricted, did smile a few times and smiled when told this group underwriter that mood is Happy and happy about the baby. MOB admits to some anxiety, on a scale of 1-10 a 3 or 4, which MOB reports is manageable. MOB held normal eye contact. MOB also agrees to allow for a [facility] referral, and agrees for drug abuse social worker to return with resources tomorrow. FOKeo slept the whole time drug abuse social worker was in the room. PLAN: Follow up with MOB and baby again on 10-20-17. MOB and baby will discharge home with resources in place. -ANABELLE Christina, SWEEPER BRUSH MAKER MACHINE
[2017-10-19 15:13] VITALS: BP 143/85; PULSE 110; RESP 16; TEMP 36.1; O2SAT 98
[2017-10-19] MEDS: Senna/Docusate Sodium 1 Tablet PO (17:49)
[2017-10-19 19:50] VITALS: BP 106/68; PULSE 77; RESP 18; TEMP 36.2; O2SAT 99
[2017-10-20] MEDS: oxyCODONE 5 MG Tablet PO ×2 (01:49→05:56)
[2017-10-20 01:50] VITALS: BP 111/64; PULSE 85; RESP 18; TEMP 36.1; O2SAT 97
[2017-10-20] MEDS: Naproxen 250 MG Tablet PO (03:55)
--- NOTE | 2017-10-20 07:56 | PCM.PN.OB ---
Patient Problems: Active and Suspected Problems (Last Reviewed 10/12/17 @ 10:24 by Claudia Jeffrey) Late deceleration of heart rate (Acute) Subjective: doingw ell no cmplaints pain controllled - Physical Exam General: Alert, Oriented x3 Abdomen: - - C/D?I Vital Signs Temp Pulse Resp BP Pulse Ox 96.9 F L 85 18 111/64 97 10/20/17 01:50 10/20/17 01:50 10/20/17 01:50 10/20/17 01:50 10/20/17 01:50 Oxygen Delivery Method Room Air Weight: 169 lb 12.095 oz Body Mass Index (BMI) 32.1 Intake and Output for Last 24 Hours 10/18/17 10/19/17 10/20/17 23:59 23:59 23:59 Intake Total 4461 / 4461 Output Total 3625 / 3625 Balance 836 / 836 Medical Necessity - Tobacco Use Smoking Status: Never smoker Assessment/Plan All Active Problems (Last Reviewed 10/12/17 @ 10:24 by Claudia Jeffrey) False labor (Acute) Late deceleration of heart rate (Acute) Elevated glucose tolerance test (Acute) History of depression (Acute) Chlamydia infection affecting (Acute) Rh negative status during (Acute) Supervision of normal (Acute) Previous delivery affecting , antepartum (Acute) s/p rltcs doingw ell routine care dc home anemia secondary to acute on chronic anemia- iron
[2017-10-20 07:57] VITALS: BP 103/69; PULSE 86; RESP 16; TEMP 36.5; O2SAT 99
--- NOTE | 2017-10-20 07:58 | DCINST_ITS ---
Additional Instructions: If you experience any of the following, contact your healthcare provider. * Bleeding that soaks a pad every hour for 2 hours * Fever 100.4 or higher * Unrelieved incision or abdominal pain * Swelling, redness, discharge or bleeding from your incision or episiotomy site * Your incision begins to separate * Problems urinating (including inability to urinate or burning while urinating) . * Visual changes * Severe headache * Flu-like symptoms * Pain or redness in one of both of your breasts * Pain, warmth, tenderness or swelling in your legs, especially the calf area * Frequent nausea and vomiting * Symptoms of depression or anxiety If you experience any of the following, call 911 or go to the nearest Emergency Room. * Chest pain * Problems breathing * Seizure activity * Partial or complete paralysis of a body part, slurred speech, weakness or drooping of the face, or a sudden inability to walk or hold your balance Allergies/Adverse Reactions: Allergies Penicillins Allergy (Unknown, Verified 10/13/17 23:00) Diarrhea family history nickel Allergy (Verified 10/13/17 23:00) Rash venom-honey bee [bee venom (honey bee)] Allergy (Verified 10/13/17 23:00) Swelling Medications to take at Discharge Ferrous Sulfate [Slow Fe] 142 mg PO DAILY #100 tablet.er 10/20/17 Naproxen 500 mg PO Q8H PRN PRN #60 tab 10/20/17 Oxycodone HCl/Acetaminophen [Percocet 5/325] 1 - 2 tablet PO Q4H PRN PRN 7 Days #28 tablet 10/20/17 Oxycodone HCl/Acetaminophen [Percocet 5/325] 1 - 2 tablet PO Q4H PRN PRN 7 Days #28 tablet 10/20/17 The following prescriptions were given: Oxycodone HCl/Acetaminophen [Percocet 5/325] 1 - 2 tablet PO Q4H PRN PRN 7 Days #28 tablet PRN Reason: Pain Oxycodone HCl/Acetaminophen [Percocet 5/325] 1 - 2 tablet PO Q4H PRN PRN 7 Days #28 tablet PRN Reason: Pain Naproxen 500 mg PO Q8H PRN PRN #60 tab PRN Reason: Pain Ferrous Sulfate [Slow Fe] 142 mg PO DAILY #100 tablet.er Follow-Up: Call to make an appointment with your doctor for an incision check in 1-2 weeks. You will also need a 6 week post- follow up appointment. Test results from this visit will be discussed in further detail at your follow- up appointment, if applicable. Primary Care Physician: Dragan Rosenbaum MD [Primary Care Provider] -
--- NOTE | 2017-10-20 07:58 | NURSING ---
Pt is up and walking in the hallway. Denies needs at this time.
[2017-10-20 08:16] VITALS: BP 103/69; PULSE 86; RESP 16; TEMP 36.4; O2SAT 98
[2017-10-20] MEDS: Acetaminophen 500 MG Tablet 1000 MG PO (09:24)
--- NOTE | 2017-10-20 10:00 | CASEMGMT ---
Social Work Note Labor and Delivery Unit Reason for visit: Follow up to initial assessment with mother of baby (MOB) on 10-19-17. Provision of resources for home going. Met with MOB in room. Father of baby (FOB) sleeping. MOB reports things are going well and denies any concerns for home going. Provided MOB with community resource information for homegoing. Provided [facility] resource packet, including brochure about [employer], tips on soothing baby/shaken baby prevention, and safe sleeping. Provided Community Action Brochure, education to [employer] program. depression packet, including online supports for such, as well as local resources for counseling provided today. MOB denies any other needs or concerns with home going. No reported concerns from nursing staff regarding mother/child interactions or bonding. MOB and baby to home today. -ANABELLE Christina, TONSORIAL ARTIST
--- NOTE | 2017-10-25 08:47 | PCM.DC.SUM ---
Discharge Date and Diagnosis Date of Admission: 10/17/17 Date of Discharge: 10/20/17 - Primary Discharge Diagnosis S/P CS - Secondary Discharge Diagnosis Chronic Problems (Last Reviewed 10/12/17 @ 10:24 by Claudia Jeffrey) Asthma (Chronic) Hospital Course and Treatment Operations: - - rltcs Summary of Care Provided: The patient is a 22 year old F PRESENTED DECLINED tolac, had late decel on monitor and therefore it was decided to proceed wtih delivery at 38w6d. patient underwent routine recovery with a return of bowel and bladder function. dc home on third day Discharge Diet: No Restrictions Discharge Activity: Return to Normal Activity Home Medications: Medications to take at Discharge Ferrous Sulfate [Slow Fe] 142 mg PO DAILY #100 tablet.er 10/20/17 Naproxen 500 mg PO Q8H PRN PRN #60 tab 10/20/17 Oxycodone HCl/Acetaminophen [Percocet 5/325] 1 - 2 tablet PO Q4H PRN PRN 7 Days #28 tablet 10/20/17 Oxycodone HCl/Acetaminophen [Percocet 5/325] 1 - 2 tablet PO Q4H PRN PRN 7 Days #28 tablet 10/20/17 Following Prescrptions Were Given to Patient: Oxycodone HCl/Acetaminophen [Percocet 5/325] 1 - 2 tablet PO Q4H PRN PRN 7 Days #28 tablet PRN Reason: Pain Oxycodone HCl/Acetaminophen [Percocet 5/325] 1 - 2 tablet PO Q4H PRN PRN 7 Days #28 tablet PRN Reason: Pain Naproxen 500 mg PO Q8H PRN PRN #60 tab PRN Reason: Pain Ferrous Sulfate [Slow Fe] 142 mg PO DAILY #100 tablet.er Primary Care Physician: Dragan Rosenbaum MD [Primary Care Provider] - Medical Necessity - Tobacco Use Smoking Status: Never smoker Meaningful Use Info Meaningful Use Diagnoses (Choose all that apply): None applicable
--- NOTE | 2017-11-02 14:45 | CASEMGMT ---
Social Work Note Labor and Delivery Unit [facility] referral submitted today via secure web based portal for [place] [facility]. -JASWINDER Christina, MUD MIXER OPERATOR
== END 2017-10-20 10:25 | disposition home or self-care (01) | DRG 370 ==
LOC: WPOUT 19:41 → WP 19:41
PROVIDERS: Admitting Provider Obstetrics & Gynecology; Family Provider Family Medicine; PCP Family Medicine; Visit Provider Obstetrics & Gynecology
PROC: (CPT 59514; principal; 2017-10-18 07:15)
DX: O76 Abnormality in fetal heart rate and rhythm complicating labor and delivery (principal); O99.02 Anemia complicating childbirth; O34.211 Maternal care for low transverse scar from previous cesarean delivery; D64.9 Anemia, unspecified; O99.62 Diseases of the digestive system complicating childbirth; K21.9 Gastro-esophageal reflux disease without esophagitis; O98.82 Other maternal infectious and parasitic diseases complicating childbirth; A74.9 Chlamydial infection, unspecified; O36.0130 Maternal care for anti-D [Rh] antibodies, third trimester, not applicable or unspecified; O99.52 Diseases of the respiratory system complicating childbirth; J45.909 Unspecified asthma, uncomplicated; Z87.59 Personal history of other complications of pregnancy, childbirth and the puerperium; Z3A.38 38 weeks gestation of pregnancy; Z37.0 Single live birth
CPT/HCPCS: 59025; 59050; 85025; 85027; 86850; 86900; 99218; J7120; A4216; G0378

== ENCOUNTER 2017-10-23 20:53 | Emergency (ER) | payer MEDICAID, SELFPAY ==
[2017-10-23 20:55] VITALS: BP 121/76; PULSE 94; RESP 15; TEMP 36.8; BMI 29.4
--- NOTE | 2017-10-23 21:34 | ED.VISSUMM ---
- ER Visit Summary Date of Service: 10/23/17 Chief Complaint: Headache History of Present Illness: The patient is a 22 F who had a on 10/17/17. was performed due to the patient's baby at the time had a low heart rate. Patient had epidural anesthesia. States for the last 3 days she has had a gradual onset of frontal headache. Made worse sitting up or standing. She denies vomiting. She denies fever. She denies any head or neck trauma. He has not been on any blood thinners. She has never had a headache like this before. She has had a history of migraines in the past. Physical Examination: Well-appearing young female. Vital signs are stable afebrile. She does not look septic or toxic. She is in no acute distress. No photophobia. H EENT exam unremarkable. Pupils round reactive light. Extra motions are intact. No signs of head or facial trauma. Normal speech. No facial droop. Sinuses are nontender. Neck nontender no lymphadenopathy. No meningismus. Able to easily touch chin to chest. Lungs clear to auscultation bilaterally. Heart regular rhythm no murmur. Abdomen soft nondistended normal bowel sounds no peritoneal signs. Her scar is horizontal suprapubic region. It is healing nicely. Minimally tender. No discharge or redness. Moving all 4 extremities. Calves without edema or cords. Neurologically she is awake alert with no focal motor or sensory deficits. NIH score is 0. Her back exam is unremarkable with the prior epidural site looks good. Test Results: None Emergency Department Course and Treatment: Patient's history and exam are consistent with a post epidural headache. She will be treated with IV fluids, IV caffeine, Toradol and Phenergan. Treatment Plan: Repeat exam at 2245 patient is doing well. She feels much better. Her headache is completely resolved. She will be discharged home. Follow-up with anesthesia for headache does not completely resolve for possible blood patch but that is not necessary at this time. She was instructed to take an increased fluids and increased caffeine. Disposition: discharge Impression: Acute cephalgia secondary to post epidural anesthesia headache Status post This note was generated with .[employer] dictation software. It may contain incorrect words, spelling, and punctuation that were not noted in review of the chart prior to signing ED Disposition - Plan for ED Patient: Chief Complaint: Headache Referrals: Dragan Rosenbaum MD [Primary Care Provider] -
--- NOTE | 2017-10-23 21:37 | ED.DCSUM_ITS ---
- ER Visit Summary Date of Service: 10/23/17 Chief Complaint: Headache History of Present Illness: The patient is a 22 F who had a on . was performed due to the patient's baby at the time had a low heart rate. Patient had epidural anesthesia. States for the last 3 days she has had a gradual onset of frontal headache. Made worse sitting up or standing. She denies vomiting. She denies fever. She denies any head or neck trauma. He has not been on any blood thinners. She has never had a headache like this before. She has had a history of migraines in the past. Physical Examination: Well-appearing young female. Vital signs are stable afebrile. She does not look septic or toxic. She is in no acute distress. No photophobia. H EENT exam unremarkable. Pupils round reactive light. Extra motions are intact. No signs of head or facial trauma. Normal speech. No facial droop. Sinuses are nontender. Neck nontender no lymphadenopathy. No meningismus. Able to easily touch chin to chest. Lungs clear to auscultation bilaterally. Heart regular rhythm no murmur. Abdomen soft nondistended normal bowel sounds no peritoneal signs. Her scar is horizontal suprapubic region. It is healing nicely. Minimally tender. No discharge or redness. Moving all 4 extremities. Calves without edema or cords. Neurologically she is awake alert with no focal motor or sensory deficits. NIH score is 0. Her back exam is unremarkable with the prior epidural site looks good. Test Results: None Emergency Department Course and Treatment: Patient's history and exam are consistent with a post epidural headache. She will be treated with IV fluids, IV caffeine, Toradol and Phenergan. Treatment Plan: Repeat exam at 2245 patient is doing well. She feels much better. Her headache is completely resolved. She will be discharged home. Follow-up with anesthesia for headache does not completely resolve for possible blood patch but that is not necessary at this time. She was instructed to take an increased fluids and increased caffeine. Disposition: discharge Impression: Acute cephalgia secondary to post epidural anesthesia headache Status post This note was generated with [employer] dictation software. It may contain incorrect words, spelling, and punctuation that were not noted in review of the chart prior to signing ED Disposition - Plan for ED Patient: Chief Complaint: Headache Referrals: Dragan Rosenbaum MD [Primary Care Provider] -
[2017-10-23] MEDS: Ketorolac 30 MG/ML Syringe IV (21:49)
[2017-10-23] MEDS: proMETHazine 25 MG/ML Syringe 12.5 MG IV (21:49)
--- NOTE | 2017-10-23 22:47 | DCINST.ED_ITS ---
ED Disposition - Plan for ED Patient: Disposition: Home or Assisted Living Chief Complaint: Headache Instructions: ED Headache Post Spinal Tap No [facility] Referrals: Dragan Rosenbaum MD [Primary Care Provider] - As Needed Additional Instructions: Plenty of fluids and rest. Lay flat as much as possible until the headache is resolving. Tylenol and Motrin for pain. Plenty of fluids and increase her caffeine intake. Caffeinated fluids such as Coca-Cola or tea. If this is not getting better you may need what is called a blood patch. Call and follow-up with anesthesia if not getting better during the hours between 8 AM and 3 PM.
[2017-10-23 23:13] VITALS: BP 109/62; PULSE 83; RESP 18; O2SAT 97
== END 2017-10-23 23:15 | disposition home or self-care (01) ==
PROVIDERS: Emergency Provider Emergency Medicine; Family Provider Family Medicine; PCP Family Medicine
DX: O89.4 Spinal and epidural anesthesia-induced headache during the puerperium (principal)
CPT/HCPCS: 96365; 96375; 99284; A4216

== ENCOUNTER 2017-10-26 14:48 | Day surgery (SDC) | payer MEDICAID, SELFPAY | END 2017-10-26 16:30 | disposition home or self-care (01) | LOC: SDC 14:49 | PROVIDERS: Family Provider Family Medicine; PCP Family Medicine; Visit Provider Anesthesiology | PROC: 3E0R3GC Introduction of Other Therapeutic Substance into Spinal Canal, Percutaneous Approach (ICD-10-PCS; CPT 62273; principal; 2017-10-26 14:25) | DX: O89.4 Spinal and epidural anesthesia-induced headache during the puerperium (principal) | CPT/HCPCS: 62273; J7120 ==

== ENCOUNTER 2017-10-29 17:20 | Inpatient (IN) | payer MEDICAID, SELFPAY ==
[2017-10-29] VITALS (7 sets, daily range): BP systolic 99–137; BP diastolic 56–92; PULSE 68–112; RESP 15–20; TEMP 36.7–36.9; O2SAT 95–98; BMI 29.2; BMI 28.5; BMI 28.6
--- NOTE | 2017-10-29 18:18 | EKG12_ITS ---
Test Reason : SOB Blood Pressure : / mmHG Vent. Rate : 098 BPM Atrial Rate : 098 BPM P-R Int : 140 ms QRS Dur : 062 ms QT Int : 336 ms P-R-T Axes : 047 038 035 degrees QTc Int : 428 ms Normal sinus rhythm Normal ECG Confirmed by AFSANEH IRAHETA ([id number]), editor city DEMETRIO SONG ([id number]) on 11/02/2017 1:33:26 PM Referred By: CLIVE/MARGARITA Confirmed By:AFSANEH IRAHETA
--- NOTE | 2017-10-29 18:18 | CT_ITS ---
STUDY: CTA CHEST REASON FOR EXAM: Female, 22 years old. Shortness of breath RADIATION DOSAGE (If Supplied By Facility): CTDIvol = ( 10.98 ) mGy, DLP = ( 433.37 ) mGycm TECHNIQUE: The examination was performed with the intravenous administration of 75ML ml of Isovue 370 contrast material. Post-processing of the angiographic images was performed, with multiplanar reformation and 3D reconstruction. Individualized dose optimization techniques were used for this CT. COMPARISON: July 25, 2017 FINDINGS: Normal enhancement of the main pulmonary artery and right and left pulmonary arteries. There are filling defects of the of the bilateral peripheral pulmonary arteries. This is compatible with bilateral pulmonary embolism. Normal thoracic aorta and visualized great vessels. There is no demonstrated aortic dissection. Normal heart and pericardium. Normal mediastinum. Normal hilar regions. Normal visualized trachea and bronchi. The lungs are well expanded. Normal pulmonary parenchyma. Normal pleura. Normal chest wall structures. Normal osseous structures. Normal visualized upper abdomen. CT/CTA Chest W/WO Contrast IMPRESSION: Bilateral pulmonary embolism. No arterial dissection. N.B. : The above information has been verbally conveyed by Michael Rose DO to Dr. Chelo Benton , Referring Physician, on 10/29/2017 19:34:09 (ET). Electronically Signed: Michael Rose DO at 19:30 EDT Tel [phone], Service support ,
--- NOTE | 2017-10-29 18:21 | ED.VISSUMM ---
- ER Visit Summary Date of Service: 10/29/17 Chief Complaint: Shortness of breath History of Present Illness: The patient is a 22 F presenting with shortness of breath and chest pain. She states she has been short of breath since her on October 17. 2 days ago she started having pleuritic type chest pain. She denies fever or cough. Denies any abdominal pain, nausea, vomiting. She states she has also had a headache since her . She had a blood patch performed 3 days ago. She states this has not changed the headache. Headache is not positional. She has no change with sitting or standing. She states it is not the worst headache of her life. She had migraines throughout her . She has a history of anxiety and states that she has had chest pain with her anxiety in the past. She admits to depression, denies suicidal ideation. Physical Examination: Vitals are stable. Patient is afebrile. Alert no acute distress. HEENT exam is unremarkable. Neck is supple. No meningismus Lungs are clear and equal bilaterally. Heart is regular rate and rhythm. Abdomen is soft nontender nondistended. Incision clean dry intact. Extremities are unremarkable. Skin is warm and dry. No focal neurologic deficit. Remainder of exam is unremarkable. Emergency Department Course and Treatment: Patient is given IV fluids, Compazine, Benadryl. CBC shows a hemoglobin 11.9. Creatinine is 1.03. CTA chest shows bilateral PE. Discussed with Dr. Le and Dr. Juarez. Patient will be admitted. Due to her headache, prior to receiving Lovenox, CT head was obtained which shows no acute process. Patient will be admitted to the medical floor. Disposition: Admission Impression: Bilateral pulmonary embolism This note was generated with [employer] dictation software. It may contain incorrect words, spelling, and punctuation that were not noted in review of the chart prior to signing ED Disposition - Plan for ED Patient: Chief Complaint: Shortness of Breath
--- NOTE | 2017-10-29 18:24 | ED.DCSUM_ITS ---
- ER Visit Summary Date of Service: 10/29/17 Chief Complaint: Shortness of breath History of Present Illness: The patient is a 22 F presenting with shortness of breath and chest pain. She states she has been short of breath since her C- section on October 17. 2 days ago she started having pleuritic type chest pain. She denies fever or cough. Denies any abdominal pain, nausea, vomiting. She states she has also had a headache since her . She had a blood patch performed 3 days ago. She states this has not changed the headache. Headache is not positional. She has no change with sitting or standing. She states it is not the worst headache of her life. She had migraines throughout her . She has a history of anxiety and states that she has had chest pain with her anxiety in the past. She admits to depression, denies suicidal ideation. Physical Examination: Vitals are stable. Patient is afebrile. Alert no acute distress. HEENT exam is unremarkable. Neck is supple. No meningismus Lungs are clear and equal bilaterally. Heart is regular rate and rhythm. Abdomen is soft nontender nondistended. Incision clean dry intact. Extremities are unremarkable. Skin is warm and dry. No focal neurologic deficit. Remainder of exam is unremarkable. Emergency Department Course and Treatment: Patient is given IV fluids, Compazine , Benadryl. CBC shows a hemoglobin 11.9. Creatinine is 1.03. CTA chest shows bilateral PE. Discussed with Dr. Le and Dr. Juarez. Patient will be admitted. Due to her headache, prior to receiving Lovenox, CT head was obtained which shows no acute process. Patient will be admitted to the medical floor. Disposition: Admission Impression: Bilateral pulmonary embolism This note was generated with [employer] dictation software. It may contain incorrect words, spelling, and punctuation that were not noted in review of the chart prior to signing ED Disposition - Plan for ED Patient: Chief Complaint: Shortness of Breath
[2017-10-29] MEDS: proCHLORPERazine 10 MG/2 ML Vial IV (19:01)
[2017-10-29] MEDS: DiphenhydrAMINE 50 MG/ML Syringe 25 MG IV (19:01)
[2017-10-29 19:06] LABS: Absolute Neutrophil Count 6.2 X10^3/uL (2.0-7.7); Basophil# 0.02 X10^3/uL; Basophil% 0.2 % (0-1); Eosinophil# 0.29 X10^3/uL; Eosinophils% 3.1 % (0-5); Hematocrit 38.3 % (37-47); Hemoglobin 11.9 g/dl (12.0-15.0); Lymphocyte % 26.3 % (19-41); Mean Corp Hgb Conc 31.1 g/gl (32-36); Mean Corpuscular Hgb 25.1 pg (27.0-32.0); Mean Corpuscular Volume 80.6 fL (81-99); Mean Platelet Vol. 9.1 fl (6.2-12.0); Monocyte# 0.51 X10^3/uL; Monocyte% 5.4 % (0-10); Neutrophil # 6.16 X10^3/uL (2.7-7.7); Neutrophil % 64.9 % (47-70); Platelet Count 374 K/mm3 (150-450); RBC Distribution Width CV 14.8 % (11.6-14.6); RBC Distribution Width SD 43.6 fl (35.1-43.9); Red Blood Count 4.75 M/mm3 (4.2-5.4); White Blood Count 9.5 K/mm3 (4.4-11.0)
[2017-10-29 19:08] LABS: POSITIVE COUNT NO; POSITIVE DIFFERENTIAL NO; POSITIVE MORPHOLOGY NO
[2017-10-29 19:21] LABS: Anion Gap 7 (5-15); BUN 15 mg/dL (7-18); BUN/Creat Ratio 14.6 RATIO (10-20); Calcium,Total 8.6 mg/dL (8.5-10.1); Chloride 108 mmol/L (98-107); Creatinine, Serum 1.03 mg/dL (0.55-1.02); EST Glomerular Filtration Rate 73 mL/min (>60); Est Glom Filt Rate - Afr Amer 88 mL/min (>60); Estimated Creatinine Clearance 65.74 ml/min; Glucose 78 mg/dL (74-106); Potassium 4.5 mmol/L (3.5-5.1); Sodium Level 139 mmol/L (136-145)
--- NOTE | 2017-10-29 20:05 | CT_ITS ---
STUDY: CT BRAIN WITHOUT CONTRAST REASON FOR EXAM: Female, 22 years old. Headache, recent blood patch RADIATION DOSAGE (If Supplied By Facility): CTDIvol = ( 44.99 ) mGy, DLP = ( 745.49 ) mGycm TECHNIQUE: Transaxial CT imaging of the brain was performed without administration of intravenous contrast material. Individualized dose optimization techniques were used for this CT. COMPARISON: None. FINDINGS: Normal soft tissue structures. Normal calvarium. Normal size ventricles and extra-axial spaces for the patient's age. Normal white matter tracts of the cerebral hemispheres. Normal basal ganglia and thalami. Normal brainstem. Normal cerebellum. There is no intracranial hemorrhage. There are no findings of an acute ischemic infarction. Normal visualized paranasal sinuses. CT/Brain/Head without Contrast IMPRESSION: Normal unenhanced CT scan of the brain. Electronically Signed: Michael Rose DO at 21:54 EDT Tel [phone], Service support ,
--- NOTE | 2017-10-29 20:07 | ED.RN ---
per dr. powell, hold the lovenox shot until ct of head is done.
--- NOTE | 2017-10-29 20:32 | PCM.HP.STD ---
Problem List (1) Pulmonary embolism Status: Acute (2) Previous delivery affecting , antepartum Status: Acute Comment: planning , 81% chance of success, education given and consent signed NOB at [facility] urine culture negative (3) Asthma Status: Chronic Qualifiers: History of Present Illness Date of Admission: 10/29/17 Chief Complaint: Pulmonary embolism The patient is a 22 year old female w/ h/o asthma and recent on October 17, 2017 admitted for bilateral PE. She has chest pain for the past few days. She also has been SOB since her . Pain is pleuritic. Nothing improves or worsens her SOB. She has no cough. No fever. She has occasional headache. Headache is mild and is consistent with migraine. Past Medical History Past Medical History (Chronic Problems): Chronic Problems (Last Reviewed 10/12/17 @ 10:24 by Claudia Jeffrey) Asthma (Chronic) Medical History: Medical History (Last Reviewed 10/12/17 @ 10:24 by Claudia Jeffrey) Asthma (Chronic) J45.909 Allergies Penicillins Allergy (Unknown, Verified 10/29/17 17:24) Diarrhea family history nickel Allergy (Verified 10/29/17 17:24) Rash venom-honey bee [bee venom (honey bee)] Allergy (Verified 10/29/17 17:24) Swelling Home Medications: Ambulatory Orders Medication Instructions Recorded Ferrous Sulfate [Slow Fe] 142 mg PO DAILY #100 tablet.er 10/20/17 Naproxen 500 mg PO Q8H PRN PRN #60 tab 10/20/17 Surgical History: Surgical History (Last Reviewed 10/30/17 @ 05:02 by Michael Juarez MD) History of placement of ear tubes Z96.22 S/P Z98.891 S/P tonsillectomy and adenoidectomy Z90.89 Surgical History: - - Lives: Spouse/ Significant Other Smoking Status: Never smoker Alcohol: None Drugs: None - *Family History Maternal History Items: No pertinent history Review of Systems Constitutional: Denies: Chills, Fever, Weight Change HEENT: Denies: Head Aches, Sinus Congestion, Sinus Drainage Cardiovascular: Denies: Chest Pain, Palpitations Respiratory: Denies: Cough, Shortness of breath at rest, Sputum production Gastrointestinal: Denies: Abdominal Pain, Nausea, Vomiting Genitourinary: Denies: Dysuria Musculoskeletal: Denies: Joint Pain, Joint Tenderness Skin: Denies: Rash, Wounds Neurological: Denies: Numbness, Tingling, Focal weakness Psychiatric: Denies: Anxiety, Depression, Homicidal Ideations, Suicidal Ideations Hematologic/ Lymphatic: Denies: Easy Bruising, Easy Bleeding VTE Information - Inpt Only VTE Present on Admission: No VTE Mechan Device Prophylaxis: SCD's VTE Pharm Prophylaxis ordered?: Yes Patient Problems: Active and Suspected Problems (Last Reviewed 10/12/17 @ 10:24 by Claudia Jeffrey) Pulmonary embolism (Acute) - Physical Exam General: Alert, Oriented x3, Cooperative HEENT: Atraumatic, PERRLA, EOMI, Normocephalic Neck: Supple, No JVD, Negative Carotid Bruits Lungs: Clear to auscultation, Normal air movement Cardiovascular: Regular rate, No murmurs Abdomen: Bowel Sounds Present, Soft, Non Tender Extremities: No edema, Capillary Refill Less than 3 Seconds Skin: No rashes, No breakdown Musculoskeletal: No Tenderness to Palpation of Joints or Extremities Neurological: Cranial nerves II-XII grossly intact Psych/Mental Status: Normal Affect, Appropriate Vital Signs Temp Pulse Resp BP Pulse Ox 98.4 F 74 15 111/75 96 10/29/17 17:21 10/29/17 19:40 10/29/17 19:40 10/29/17 19:40 10/29/17 19:40 Assessment/Plan All Active Problems (Last Reviewed 10/12/17 @ 10:24 by Claudia Jeffrey) False labor (Acute) Late deceleration of heart rate (Acute) Pulmonary embolism (Acute) Elevated glucose tolerance test (Acute) History of depression (Acute) Chlamydia infection affecting (Acute) Rh negative status during (Acute) Supervision of normal (Acute) Previous delivery affecting , antepartum (Acute) 22 year old female w/ h/o asthma and recent on October 17, 2017 admitted for bilateral PE. 1) Bilateral PE: Risk factor is . Will restart lovenox. CT brain negative. Will get doppler. Hypercoag workup pending. Monitor. 2) Chest pain: Probably secondary to PE. Supportive care. 3) Prophylaxis: SCD / Lovenox.
--- NOTE | 2017-10-29 20:41 | NURSING ---
Called ED fashion director, Kelly at this time to confirm Pt is okay to come to PCU.
[2017-10-29] MEDS: Enoxaparin 80 MG/0.8 ML Syringe 70 MG SC (22:13)
[2017-10-29 23:11] LABS: BNP,B-Type NATRIURETIC PEPTIDE 19.2 pg/mL (0-100)
[2017-10-29] MEDS: 0.9% Normal Saline 1,000 ML 100 ML IV (23:27)
[2017-10-30] VITALS (11 sets, daily range): BP systolic 106–120; BP diastolic 72–81; PULSE 54–109; RESP 16–18; TEMP 36.8–36.9; O2SAT 96–99
--- NOTE | 2017-10-30 05:55 | ECHOD_ITS ---
Reason For Study: Chest Pain Procedure This was a 2D Doppler, Color Flow transthoracic echocardiogram. Unable to use definity due to patient breast feeding. Exam performed portable in patient room. Left Ventricle Normal size and thickness. The estimated ejection fraction is 65 %. Normal diastology for age. No regional wall motion abnormalities noted. Right Ventricle Normal size and thickness. Normal systolic function. Atria Normal left atrium. Normal right atrium. Normal atrial septum. Mitral Valve The mitral valve is structurally normal. No prolapse or stenosis seen. Tricuspid Valve Normal tricuspid valve. Trivial tricuspid valve insufficiency. Right ventricular systolic pressure estimated to be 22 mmHg. Aortic Valve Normal aortic valve. Trisinus/trileaflet aortic valve. Pulmonic Valve Normal pulmonic valve. Great Vessels Normal aortic root. Normal arch. Normal inferior vena cava. Inferior vena cava collapse with sniff. Pericardium/Pleural No pericardial effusion. MMode/2D Measurements & Calculations LVIDd: 4.1 cm IVSd: 1.1 cm Ao root diam: 2.8 cm LVIDs: 2.7 cm LVPWd: 0.87 cm LA dimension: 2.9 cm FS: 34.4 % LAV(MOD-sp4): 30.2 ml LA A4 area: 14.0 cm2 RA A4 area: 11.4 cm2 Time Measurements MV dec time: 0.21 sec Doppler Measurements & Calculations MV E max lamont: 71.8 cm/sec Lat Peak E' Lamont: 16.1 cm/sec Med Peak E' Lamont: 11.4 cm/sec MV A max lamont: 53.1 cm/sec E/E' lat: 4.5 E/E' med: 6.3 MV E/A: 1.4 MV V2 max: 86.8 cm/sec MV P1/2t max lamont: 87.9 cm/sec Ao V2 max: 127.1 cm/sec MV max P.0 mmHg MV P1/2t: 59.3 msec Ao max P.5 mmHg MV V2 mean: 42.5 cm/sec MV dec slope: 433.8 cm/sec2 Ao V2 mean: 91.2 cm/sec MV mean P.87 mmHg MVA(P1/2t): 3.7 cm2 Ao mean P.8 mmHg MV V2 VTI: 24.0 cm Ao V2 VTI: 24.4 cm LV V1 max: 105.5 cm/sec PA V2 max: 59.6 cm/sec TR max lamont: 206.7 cm/sec LV V1 max P.4 mmHg TR max P.1 mmHg LV V1 mean P.3 mmHg LV V1 mean: 69.5 cm/sec LV V1 VTI: 21.0 cm Interpretation Summary The estimated ejection fraction is 65 %. Normal diastology for age. Trivial tricuspid valve insufficiency. Right ventricular systolic pressure estimated to be 22 mmHg. There is no comparison study available. Ordering Physician: Michael Juarez Referring Physician: Brad Briones Performed By: Edward Dalton RCS
[2017-10-30 06:16] LABS: Hematocrit 33.9 % (37-47); Hemoglobin 10.5 g/dl (12.0-15.0); Mean Corpuscular Hgb 25.3 pg (27.0-32.0); Mean Corpuscular Volume 81.7 fL (81-99); Mean Platelet Vol. 8.9 fl (6.2-12.0); Platelet Count 347 K/mm3 (150-450); RBC Distribution Width CV 14.7 % (11.6-14.6); Red Blood Count 4.15 M/mm3 (4.2-5.4); White Blood Count 7.8 K/mm3 (4.4-11.0)
[2017-10-30 06:18] LABS: Scan Indicated on CBC? Y/N NO
[2017-10-30 06:19] LABS: International Normalized Ratio 1.2
[2017-10-30 06:48] LABS: Anion Gap 9 (5-15); BUN 13 mg/dL (7-18); BUN/Creat Ratio 11.8 RATIO (10-20); Calcium,Total 7.8 mg/dL (8.5-10.1); Chloride 112 mmol/L (98-107); EST Glomerular Filtration Rate 67 mL/min (>60); Est Glom Filt Rate - Afr Amer 81 mL/min (>60); Estimated Creatinine Clearance 61.56 ml/min; Glucose 93 mg/dL (74-106); Potassium 4.2 mmol/L (3.5-5.1); Sodium Level 141 mmol/L (136-145)
[2017-10-30] MEDS: Ferrous Sulfate 325 MG Tablet PO (08:30)
[2017-10-30] MEDS: Enoxaparin 80 MG/0.8 ML Syringe 70 MG SC ×2 (08:30→21:36)
[2017-10-30] MEDS: 0.9% Normal Saline 1,000 ML 100 ML IV (09:35)
--- NOTE | 2017-10-30 10:59 | CASEMGMT ---
ROSEMARIE VASQUEZ Prescription review: Pt may go home on anti-coagulant therapy per physician. [facility] prescription review completed. Covered prescriptions are: Eliquis, Xarelto, and Enoxaparin. Demetrio GARCIA RN CM
--- NOTE | 2017-10-30 11:20 | NURSING ---
This nurse started Lovenox teaching. Patient was given demonstration on how to self administer lovenox. Patient needs to attempt to give for next dose
--- NOTE | 2017-10-30 15:08 | PCM.PROGNOTE ---
<Eli Salazar - Last Filed: 10/30/17 15:29> Patient Problems: Active and Suspected Problems (Last Reviewed 10/12/17 @ 10:24 by Claudia Jeffrey) Pulmonary embolism (Acute) Subjective: Patient seen and examined. Resting in bed in no acute distress. Denies chest pain, shortness of breath. States she has been ambulating to the restroom without dyspnea. Patient is tearful during conversation and states she is emotional. She does not feel she can get Lovenox injections to herself but states her significant other may administer them. No other current complaints. - Physical Exam General: Alert, Oriented x3, Cooperative, No apparent distress HEENT: Atraumatic, PERRLA, EOMI, Normocephalic Neck: Supple, No JVD, Negative Carotid Bruits Lungs: Clear to auscultation, Normal air movement Cardiovascular: Regular rate, Regular Rhythm, Normal S1, Normal S2, No murmurs Abdomen: Bowel Sounds Present, Soft, Non Tender, Non-Distended Extremities: No clubbing, No cyanosis, No edema, Capillary Refill Less than 3 Seconds Skin: No rashes, No breakdown Musculoskeletal: No Tenderness to Palpation of Joints or Extremities Neurological: Cranial nerves II-XII grossly intact, Neuro grossly intact Psych/Mental Status: Normal Affect, Appropriate Vital Signs Temp Pulse Resp BP Pulse Ox 98.4 F 63 18 120/75 99 10/30/17 10:39 10/30/17 10:59 10/30/17 10:39 10/30/17 10:39 10/30/17 10:39 Oxygen Delivery Method Room Air Weight: 151 lb 3.794 oz Body Mass Index (BMI) 28.5 Intake and Output for Last 24 Hours 10/28/17 10/29/17 10/30/17 23:59 23:59 23:59 Intake Total 400 / 400 1412 / 1412 Balance 400 / 400 1412 / 1412 Laboratory Tests Past 24 Hrs 10/29/17 10/30/17 10/30/17 23:31 02:38 05:50 WBC RBC Hgb Hct MCV MCH MCHC RDW RDW Differential Plt Count MPV PT 15.0 H INR 1.2 Protein C Antigen Functional Protein C Prot C Funct Activity Antithrombin III Ag Func Antithrombin III Factor V Leiden Mutat Sodium Potassium Chloride Carbon Dioxide Anion Gap BUN Creatinine Estim Creat Clear Calc Est GFR (MDRD) Af Amer Est GFR (MDRD) Non-Af BUN/Creatinine Ratio Glucose Calcium Troponin I < 0.015 < 0.015 Beta-2-GPI IgG Ab Beta-2-GPI IgA Ab Beta-2-GPI IgM Ab Anti-Cardiolipin IgG Ab Anti-Cardiolipin IgM Ab Factor II DNA Analysis Miscellaneous Test 10/30/17 10/30/17 10/30/17 05:50 05:50 05:50 WBC 7.8 RBC 4.15 L Hgb 10.5 L Hct 33.9 L MCV 81.7 MCH 25.3 L MCHC 31.0 L RDW 14.7 H RDW Differential 43.0 Plt Count 347 MPV 8.9 PT INR Protein C Antigen Pending Functional Protein C Pending Prot C Funct Activity Pending Antithrombin III Ag Pending Func Antithrombin III Pending Factor V Leiden Mutat Pending Sodium Potassium Chloride Carbon Dioxide Anion Gap BUN Creatinine Estim Creat Clear Calc Est GFR (MDRD) Af Amer Est GFR (MDRD) Non-Af BUN/Creatinine Ratio Glucose Calcium Troponin I Beta-2-GPI IgG Ab Pending Beta-2-GPI IgA Ab Pending Beta-2-GPI IgM Ab Pending Anti-Cardiolipin IgG Ab Pending Anti-Cardiolipin IgM Ab Pending Factor II DNA Analysis Pending Miscellaneous Test Pending 10/30/17 10/30/17 05:50 05:50 WBC RBC Hgb Hct MCV MCH MCHC RDW RDW Differential Plt Count MPV PT INR Protein C Antigen Functional Protein C Prot C Funct Activity Antithrombin III Ag Func Antithrombin III Factor V Leiden Mutat Sodium 141 Potassium 4.2 Chloride 112 H Carbon Dioxide 20.0 L Anion Gap 9 BUN 13 Creatinine 1.10 H Estim Creat Clear Calc 61.56 Est GFR (MDRD) Af Amer 81 Est GFR (MDRD) Non-Af 67 BUN/Creatinine Ratio 11.8 Glucose 93 Calcium 7.8 L Troponin I < 0.015 Beta-2-GPI IgG Ab Beta-2-GPI IgA Ab Beta-2-GPI IgM Ab Anti-Cardiolipin IgG Ab Anti-Cardiolipin IgM Ab Factor II DNA Analysis Miscellaneous Test Medical Necessity - Tobacco Use Smoking Status: Never smoker Assessment/Plan All Active Problems (Last Reviewed 10/12/17 @ 10:24 by Claudia Jeffrey) False labor (Acute) Late deceleration of heart rate (Acute) Pulmonary embolism (Acute) Elevated glucose tolerance test (Acute) History of depression (Acute) Chlamydia infection affecting (Acute) Rh negative status during (Acute) Supervision of normal (Acute) Previous delivery affecting , antepartum (Acute) 1. Acute bilateral PE-CT of chest demonstrated bilateral pulmonary embolism. Echocardiogram demonstrated an EF of 65%, RVSP estimated to be 22 mmHg. Troponin negative. Doppler bilateral lower extremities pending. Hypercoagulable workup pending. Patient agreeable to beginning Coumadin, bridging with Lovenox. Begin Coumadin 10 mg ?1. Check INR in a.m. Plan for discharge tomorrow. Patient denies shortness of breath. No documented hypoxia. 2. Elevated creatinine, mild-IV fluids have been discontinued. Monitor BMP. 3. History of asthma DVT prophylaxis-Lovenox subcu This patient was seen by ANYI Parnell under the supervision of Dr. Ochoa. <Tammie Ochoa - Last Filed: 10/30/17 17:14> - Physical Exam Vital Signs Temp Pulse Resp BP Pulse Ox 98.2 F 59 L 18 108/81 H 98 10/30/17 15:49 10/30/17 15:49 10/30/17 15:49 10/30/17 15:49 10/30/17 15:49 Oxygen Delivery Method Room Air Weight: 68.6 kg Body Mass Index (BMI) 28.5 Intake and Output for Last 24 Hours 10/28/17 10/29/17 10/30/17 23:59 23:59 23:59 Intake Total 400 / 400 1412 / 1412 Balance 400 / 400 1412 / 1412 Laboratory Tests Past 24 Hrs 10/29/17 10/30/17 10/30/17 23:31 02:38 05:50 WBC RBC Hgb Hct MCV MCH MCHC RDW RDW Differential Plt Count MPV PT 15.0 H INR 1.2 Protein C Antigen Functional Protein C Prot C Funct Activity Antithrombin III Ag Func Antithrombin III Factor V Leiden Mutat Sodium Potassium Chloride Carbon Dioxide Anion Gap BUN Creatinine Estim Creat Clear Calc Est GFR (MDRD) Af Amer Est GFR (MDRD) Non-Af BUN/Creatinine Ratio Glucose Calcium Troponin I < 0.015 < 0.015 Beta-2-GPI IgG Ab Beta-2-GPI IgA Ab Beta-2-GPI IgM Ab Anti-Cardiolipin IgG Ab Anti-Cardiolipin IgM Ab Factor II DNA Analysis Miscellaneous Test 10/30/17 10/30/17 10/30/17 05:50 05:50 05:50 WBC 7.8 RBC 4.15 L Hgb 10.5 L Hct 33.9 L MCV 81.7 MCH 25.3 L MCHC 31.0 L RDW 14.7 H RDW Differential 43.0 Plt Count 347 MPV 8.9 PT INR Protein C Antigen Pending Functional Protein C Pending Prot C Funct Activity Pending Antithrombin III Ag Pending Func Antithrombin III Pending Factor V Leiden Mutat Pending Sodium Potassium Chloride Carbon Dioxide Anion Gap BUN Creatinine Estim Creat Clear Calc Est GFR (MDRD) Af Amer Est GFR (MDRD) Non-Af BUN/Creatinine Ratio Glucose Calcium Troponin I Beta-2-GPI IgG Ab Pending Beta-2-GPI IgA Ab Pending Beta-2-GPI IgM Ab Pending Anti-Cardiolipin IgG Ab Pending Anti-Cardiolipin IgM Ab Pending Factor II DNA Analysis Pending Miscellaneous Test Pending 10/30/17 10/30/17 05:50 05:50 WBC RBC Hgb Hct MCV MCH MCHC RDW RDW Differential Plt Count MPV PT INR Protein C Antigen Functional Protein C Prot C Funct Activity Antithrombin III Ag Func Antithrombin III Factor V Leiden Mutat Sodium 141 Potassium 4.2 Chloride 112 H Carbon Dioxide 20.0 L Anion Gap 9 BUN 13 Creatinine 1.10 H Estim Creat Clear Calc 61.56 Est GFR (MDRD) Af Amer 81 Est GFR (MDRD) Non-Af 67 BUN/Creatinine Ratio 11.8 Glucose 93 Calcium 7.8 L Troponin I < 0.015 Beta-2-GPI IgG Ab Beta-2-GPI IgA Ab Beta-2-GPI IgM Ab Anti-Cardiolipin IgG Ab Anti-Cardiolipin IgM Ab Factor II DNA Analysis Miscellaneous Test Assessment/Plan Patient was seen and examined with the nurse practitioner Eli Salazar. I agree with the above interval history, physical exam and assessment and plan. Patient denies any chest pain no dizziness or palpitations at time. Recent section 3 weeks ago. Actively breast-feeding. Denies any fever or chills. Vitals reviewed and are stable Physical exam is unremarkable -no bilateral calf tenderness Labs reviewed, mild elevation in creatinine. 2D echo shows no RV dysfunction Started on Lovenox Discussed with Dr. Ye; okay to transition to Coumadin with Lovenox bridging. We will follow INR in a.m. Code Visit Inpatient E&M: 59450 Subs Hosp L2
--- NOTE | 2017-10-30 15:58 | VDLE_ITS ---
Reason For Study: PE RIGHT LEFT GSV is normal. GSV is normal. CFV is compressible, spontaneous, phasic, CFV is compressible, spontaneous, phasic, competent and demonstrates normal competent, and demonstrates normal augmentation. augmentation. FV is compressible, spontaneous, phasic, FV is compressible, spontaneous, phasic, competent and demonstrates normal competent and demonstrates normal augmentation. augmentation. POP V is compressible, spontaneous, phasic, POP V is compressible, spontaneous, phasic, competent and demonstrates normal competent and demonstrates normal augmentation. augmentation. T/P Trunk is compressible. T/P Trunk is compressible. PTV is compressible. PTV is compressible. RT PerV is compressible. LT PerV is compressible. Procedure Exam performed portable in patient room. The exam was diagnostic. A preliminary report was called and/or faxed to the pt's RN. Interpretation Summary Deep veins of the lower extremities are bilaterally patent and compressible segmentally. There is no evidence of deep vein thrombosis on either side. Valvular competence appears intact within the proximal deep venous systems bilaterally. The greater saphenous veins appear bilaterally patent and compressible segmentally. Crdering Physician: Eli Salazar NP- Performed By: Buzz Heredia, RVT
--- NOTE | 2017-10-30 21:40 | NURSING ---
LOVENOX TEACHING WITH THE PATIENT AND HER SIGNIFICANT OTHER, LOREN. THE PATIENT IS TOO SCARED TO GIVE HERSELF A SHOT SO SHE WANTED LOREN TO ADMINISTER THE LOVENOX. I INSTRUCTED THEM BOTH ON LOVENOX ADMINISTRATION AND LOREN SUCCESSFULLY ADMINISTERED THE LOVENOX WITHOUT DIFFICULTY.
[2017-10-31 03:23] VITALS: BP 117/75; PULSE 85; PULSE 87; RESP 16; TEMP 36.9; O2SAT 96
[2017-10-31 06:55] LABS: Hematocrit 35.4 % (37-47); Hemoglobin 11.1 g/dl (12.0-15.0); Mean Corp Hgb Conc 31.4 g/gl (32-36); Mean Corpuscular Hgb 25.7 pg (27.0-32.0); Mean Corpuscular Volume 81.9 fL (81-99); Mean Platelet Vol. 9.3 fl (6.2-12.0); Platelet Count 314 K/mm3 (150-450); RBC Distribution Width CV 14.9 % (11.6-14.6); RBC Distribution Width SD 44.1 fl (35.1-43.9); Red Blood Count 4.32 M/mm3 (4.2-5.4); White Blood Count 8.3 K/mm3 (4.4-11.0)
[2017-10-31 06:57] LABS: Scan Indicated on CBC? Y/N NO
[2017-10-31 06:59] LABS: International Normalized Ratio 1.3; Prothrombin Time (Protime)PT. 16.5 SECONDS (11.7-14.9)
[2017-10-31 07:00] VITALS: PULSE 76
[2017-10-31 07:08] LABS: Anion Gap 12 (5-15); BUN 9 mg/dL (7-18); BUN/Creat Ratio 8.8 RATIO (10-20); Calcium,Total 8.6 mg/dL (8.5-10.1); Chloride 111 mmol/L (98-107); Creatinine, Serum 1.02 mg/dL (0.55-1.02); EST Glomerular Filtration Rate 73 mL/min (>60); Est Glom Filt Rate - Afr Amer 89 mL/min (>60); Estimated Creatinine Clearance 66.39 ml/min; Glucose 67 mg/dL (74-106); Potassium 4.8 mmol/L (3.5-5.1); Sodium Level 142 mmol/L (136-145)
[2017-10-31 09:23] VITALS: BP 110/69; PULSE 96; RESP 16; TEMP 37; O2SAT 97
[2017-10-31] MEDS: Ferrous Sulfate 325 MG Tablet PO (09:34)
[2017-10-31] MEDS: Enoxaparin 80 MG/0.8 ML Syringe 70 MG SC (09:34)
--- NOTE | 2017-10-31 10:35 | PCM.DC ---
- Discharge Diagnoses Current Active Problems: Current Active and Chronic Problems (Last Reviewed 10/12/17 @ 10:24 by Claudia Jeffrey) Pulmonary embolism (Acute) You will use the following diet at home:: No restrictions Discharge Activity: Return to Normal Activity Call your doctor if you observe: Shortness of breath, Dizziness, Fainting spells, Chest pain, - - Increased vaginal bleeding. Additional Instructions: You will continue lovenox injections twice daily until INR becomes therapeutic. This will need followed closely by primary care physician. You recieved coumadin prior to discharge and will begin taking Coumadin 5mg daily starting tomorrow. You will need INR repeated in 2 days. See primary care physician in 2-3 days. Your PCP willl further monitor your labwork, coumadin dosing and advise you when you can stop lovenox injections. Allergies/Adverse Reactions: Allergies Penicillins Allergy (Unknown, Verified 10/29/17 17:24) Diarrhea family history nickel Allergy (Verified 10/29/17 17:24) Rash venom-honey bee [bee venom (honey bee)] Allergy (Verified 10/29/17 17:24) Swelling Medications to take at Discharge Ferrous Sulfate [Slow Fe] 142 mg PO DAILY #100 tablet.er 10/20/17 Naproxen 500 mg PO Q8H PRN PRN #60 tab 10/20/17 Enoxaparin [Lovenox] 70 mg SC Q12 #15 syringe 10/31/17 Warfarin [Coumadin ([facility])] 5 mg PO DAILY #30 tab 10/31/17 The following prescriptions were given: Enoxaparin [Lovenox] 70 mg SC Q12 #15 syringe Warfarin [Coumadin ([facility])] 5 mg PO DAILY #30 tab Primary Care Physician: Dragan Rosenbaum MD [Primary Care Provider] - Please follow up with your Primary Care Physician in: Call Wednesday for appointment. Follow up 2-3 days. Test Results: Test results from this visit will be discussed in further detail at your follow-up appointment, if applicable. Please Follow Up With: Shaina Ye MD When: 1 Week Proposed Discharge Date: 10/31/17
--- NOTE | 2017-10-31 10:41 | DCINST_ITS ---
- Discharge Diagnoses Current Active Problems: Current Active and Chronic Problems (Last Reviewed 10/12/17 @ 10:24 by Claudia Jeffrey) Pulmonary embolism (Acute) You will use the following diet at home:: No restrictions Discharge Activity: Return to Normal Activity Call your doctor if you observe: Shortness of breath, Dizziness, Fainting spells , Chest pain, - - Increased vaginal bleeding. Additional Instructions: You will continue lovenox injections twice daily until INR becomes therapeutic. This will need followed closely by primary care physician. You recieved coumadin prior to discharge and will begin taking Coumadin 5mg daily starting tomorrow. You will need INR repeated in 2 days. See primary care physician in 2-3 days. Your PCP willl further monitor your labwork , coumadin dosing and advise you when you can stop lovenox injections. Allergies/Adverse Reactions: Allergies Penicillins Allergy (Unknown, Verified 10/29/17 17:24) Diarrhea family history nickel Allergy (Verified 10/29/17 17:24) Rash venom-honey bee [bee venom (honey bee)] Allergy (Verified 10/29/17 17:24) Swelling Medications to take at Discharge Ferrous Sulfate [Slow Fe] 142 mg PO DAILY #100 tablet.er 10/20/17 Naproxen 500 mg PO Q8H PRN PRN #60 tab 10/20/17 Enoxaparin [Lovenox] 70 mg SC Q12 #15 syringe 10/31/17 Warfarin [Coumadin ([facility])] 5 mg PO DAILY #30 tab 10/31/17 The following prescriptions were given: Enoxaparin [Lovenox] 70 mg SC Q12 #15 syringe Warfarin [Coumadin ([facility])] 5 mg PO DAILY #30 tab Primary Care Physician: Dragan Rosenbaum MD [Primary Care Provider] - Please follow up with your Primary Care Physician in: Call Wednesday for appointment. Follow up 2-3 days. Test Results: Test results from this visit will be discussed in further detail at your follow- up appointment, if applicable. Please Follow Up With: Shaina Ye MD When: 1 Week Proposed Discharge Date: 10/31/17
--- NOTE | 2017-10-31 10:42 | PCM.DC.SUM ---
<Eli Salazar - Last Filed: 10/31/17 10:54> Discharge Date and Diagnosis Date of Admission: 10/29/17 Date of Discharge: 10/31/17 - Primary Discharge Diagnosis Active and Suspected Problems (Last Reviewed 10/12/17 @ 10:24 by Claudia Jeffrey) 1. Acute bilateral pulmonary embolism 2. Elevated creatinine, mild-secondary to mild dehydration. Resolved with IV fluids. - Secondary Discharge Diagnosis Chronic Problems (Last Reviewed 10/12/17 @ 10:24 by Claudia Jeffrey) Asthma (Chronic) Hospital Course and Treatment Imaging Results: Diagnostic Data Chest CTA 10/29/17 18:18 IMPRESSION: Bilateral pulmonary embolism. No arterial dissection. N.B. : The above information has been verbally conveyed by Michael Rose DO to Dr. Chelo Benton , Referring Physician, on 10/29/2017 19:34:09 (ET). Electronically Signed: Michael Rose DO at 19:30 EDT Tel [phone], Service support , Brain CT 10/29/17 20:05 IMPRESSION: Normal unenhanced CT scan of the brain. Electronically Signed: Michael Rose DO at 21:54 EDT Tel [phone], Service support , Operations: None Procedures: 2-D Echocardiogram Summary of Care Provided: The patient is a 22 year old F admitted 10/29/2017 due to chest pain, shortness of breath. She was found to have acute bilateral pulmonary embolism. She had a recent 10/17/2017. Follows with Dr. Ye, ANIMAL TECHNICIAN. 1. Acute bilateral PE-CT of chest demonstrated bilateral pulmonary embolism. Echocardiogram demonstrated an EF of 65%, RVSP estimated to be 22 mmHg. Troponin negative. Doppler bilateral lower extremities pending, will be reviewed prior to discharge. Hypercoagulable workup pending. Patient will be discharged on weight-based Lovenox twice daily until INR becomes therapeutic and Coumadin. Check INR in 2 days. Follow-up with primary care physician in 2-3 days. Continue Coumadin 5 mg daily at discharge until advised otherwise. Follow-up with ANIMAL TECHNICIAN in 1 week. Patient understands discharge plan and denies questions or concerns regarding Lovenox/Coumadin regimen. 2. Elevated creatinine, mild-resolved with IV fluids. 3. History of asthma General: Alert, Oriented x3, Cooperative, No apparent distress HEENT: Atraumatic, PERRLA, EOMI, Normocephalic Neck: Supple, No JVD, Negative Carotid Bruits Lungs: Clear to auscultation, Normal air movement Cardiovascular: Regular rate, Regular Rhythm, Normal S1, Normal S2, No murmurs Abdomen: Bowel Sounds Present, Soft, Non Tender, Non-Distended Extremities: No clubbing, No cyanosis, No edema, Capillary Refill Less than 3 Seconds Skin: No rashes, No breakdown Musculoskeletal: No Tenderness to Palpation of Joints or Extremities Neurological: Cranial nerves II-XII grossly intact, Neuro grossly intact Psych/Mental Status: Normal Affect, Appropriate Patient seen exam prior to discharge. Physical assessment as noted above. Patient stable for discharge home with the follow-up recommendations as noted above. This patient was seen by ANYI Parnell under the supervision of Dr. Ochoa. Discharge Diet: No Restrictions Discharge Activity: Return to Normal Activity Call your doctor if you observe: Shortness of breath, Dizziness, Fainting spells, Chest pain, - - Increased vaginal bleeding. Home Medications: Medications to take at Discharge Ferrous Sulfate [Slow Fe] 142 mg PO DAILY #100 tablet.er 10/20/17 Enoxaparin [Lovenox] 70 mg SC Q12 #15 syringe 10/31/17 Warfarin [Coumadin ([facility])] 5 mg PO DAILY #30 tab 10/31/17 Following Prescrptions Were Given to Patient: Enoxaparin [Lovenox] 70 mg SC Q12 #15 syringe Warfarin [Coumadin ([facility])] 5 mg PO DAILY #30 tab Primary Care Physician: Dragan Rosenbaum MD [Primary Care Provider] - Please follow up with your Primary Care Physician in: Call Wednesday for appointment. Follow up 2-3 days. Please Follow Up With: Shaina Ye MD When: 1 Week Additional Instructions: You will continue lovenox injections twice daily until INR becomes therapeutic. This will need followed closely by primary care physician. You recieved coumadin prior to discharge and will begin taking Coumadin 5mg daily starting tomorrow. You will need INR repeated in 2 days. See primary care physician in 2-3 days. Your PCP willl further monitor your labwork, coumadin dosing and advise you when you can stop lovenox injections. Disposition: Home Minutes spent on discharge:: 35 Patient Condition:: Stable Medical Necessity - Tobacco Use Smoking Status: Never smoker Meaningful Use Info Meaningful Use Diagnoses (Choose all that apply): None applicable <Tammie Ochoa - Last Filed: 10/31/17 13:25> Discharge Date and Diagnosis - Secondary Discharge Diagnosis Chronic Problems (Last Reviewed 10/12/17 @ 10:24 by Claudia Jeffrey) Asthma (Chronic) Hospital Course and Treatment Summary of Care Provided: The patient is a 22 year old F [] Code Visit Inpatient E&M: 00502 Disch Hosp
[2017-10-31] MEDS: Ondansetron 8 MG Tablet PO (10:46)
--- NOTE | 2017-10-31 10:49 | DS.PCM_ITS ---
<Eli Salazar - Last Filed: 10/31/17 10:54> Discharge Date and Diagnosis Date of Admission: 10/29/17 Date of Discharge: 10/31/17 - Primary Discharge Diagnosis Active and Suspected Problems (Last Reviewed 10/12/17 @ 10:24 by Claudia Jeffrey) 1. Acute bilateral pulmonary embolism 2. Elevated creatinine, mild-secondary to mild dehydration. Resolved with IV fluids. - Secondary Discharge Diagnosis Chronic Problems (Last Reviewed 10/12/17 @ 10:24 by Claudia Jeffrey) Asthma (Chronic) Hospital Course and Treatment Imaging Results: Diagnostic Data Chest CTA 10/29/17 18:18 IMPRESSION: Bilateral pulmonary embolism. No arterial dissection. N.B. : The above information has been verbally conveyed by Michael Rose DO to Dr. Chelo Benton , Referring Physician, on 10/29/2017 19:34:09 (ET). Electronically Signed: Michael Rose DO at 19:30 EDT Tel [phone], Service support , Brain CT 10/29/17 20:05 IMPRESSION: Normal unenhanced CT scan of the brain. Electronically Signed: Michael Rose DO at 21:54 EDT Tel [phone], Service support , Operations: None Procedures: 2-D Echocardiogram Summary of Care Provided: The patient is a 22 year old F admitted 10/29/2017 due to chest pain, shortness of breath. She was found to have acute bilateral pulmonary embolism. She had a recent 10/17/2017. Follows with Dr. Ye, TALENT ACQUISITION DIRECTOR. 1. Acute bilateral PE-CT of chest demonstrated bilateral pulmonary embolism. Echocardiogram demonstrated an EF of 65%, RVSP estimated to be 22 mmHg. Troponin negative. Doppler bilateral lower extremities pending, will be reviewed prior to discharge. Hypercoagulable workup pending. Patient will be discharged on weight-based Lovenox twice daily until INR becomes therapeutic and Coumadin. Check INR in 2 days. Follow-up with primary care physician in 2- 3 days. Continue Coumadin 5 mg daily at discharge until advised otherwise. Follow-up with TALENT ACQUISITION DIRECTOR in 1 week. Patient understands discharge plan and denies questions or concerns regarding Lovenox/Coumadin regimen. 2. Elevated creatinine, mild-resolved with IV fluids. 3. History of asthma General: Alert, Oriented x3, Cooperative, No apparent distress HEENT: Atraumatic, PERRLA, EOMI, Normocephalic Neck: Supple, No JVD, Negative Carotid Bruits Lungs: Clear to auscultation, Normal air movement Cardiovascular: Regular rate, Regular Rhythm, Normal S1, Normal S2, No murmurs Abdomen: Bowel Sounds Present, Soft, Non Tender, Non-Distended Extremities: No clubbing, No cyanosis, No edema, Capillary Refill Less than 3 Seconds Skin: No rashes, No breakdown Musculoskeletal: No Tenderness to Palpation of Joints or Extremities Neurological: Cranial nerves II-XII grossly intact, Neuro grossly intact Psych/Mental Status: Normal Affect, Appropriate Patient seen exam prior to discharge. Physical assessment as noted above. Patient stable for discharge home with the follow-up recommendations as noted above. This patient was seen by ANYI Parnell under the supervision of Dr. Ochoa. Discharge Diet: No Restrictions Discharge Activity: Return to Normal Activity Call your doctor if you observe: Shortness of breath, Dizziness, Fainting spells , Chest pain, - - Increased vaginal bleeding. Home Medications: Medications to take at Discharge Ferrous Sulfate [Slow Fe] 142 mg PO DAILY #100 tablet.er 10/20/17 Enoxaparin [Lovenox] 70 mg SC Q12 #15 syringe 10/31/17 Warfarin [Coumadin ([facility])] 5 mg PO DAILY #30 tab 10/31/17 Following Prescrptions Were Given to Patient: Enoxaparin [Lovenox] 70 mg SC Q12 #15 syringe Warfarin [Coumadin ([facility])] 5 mg PO DAILY #30 tab Primary Care Physician: Dragan Rosenbaum MD [Primary Care Provider] - Please follow up with your Primary Care Physician in: Call Wednesday for appointment. Follow up 2-3 days. Please Follow Up With: Shaina Ye MD When: 1 Week Additional Instructions: You will continue lovenox injections twice daily until INR becomes therapeutic. This will need followed closely by primary care physician. You recieved coumadin prior to discharge and will begin taking Coumadin 5mg daily starting tomorrow. You will need INR repeated in 2 days. See primary care physician in 2- 3 days. Your PCP willl further monitor your labwork, coumadin dosing and advise you when you can stop lovenox injections. Disposition: Home Minutes spent on discharge:: 35 Patient Condition:: Stable Medical Necessity - Tobacco Use Smoking Status: Never smoker Meaningful Use Info Meaningful Use Diagnoses (Choose all that apply): None applicable <Tammie Ochoa - Last Filed: 10/31/17 13:25> Discharge Date and Diagnosis - Secondary Discharge Diagnosis Chronic Problems (Last Reviewed 10/12/17 @ 10:24 by Claudia Jeffrey) Asthma (Chronic) Hospital Course and Treatment Summary of Care Provided: The patient is a 22 year old F [] Code Visit Inpatient E&M: 75038 Disch Hosp
--- NOTE | 2017-11-01 16:18 | CASEMGMT ---
Addendum entered by Maru Carranza 11/03/17 15:05: This RN CM received a voicemail back from pt and attempted to call pt back a second time without success. Left a voicemail again for pt at this time. Jose Elias [place] CM Original Note: RN PEDRO Discharge F/U Phone Call LACE: 14 Strata: 4 Discharge date: 10/31/17 Call date: 11/01/17 Call time: 1615 Attempted to reach pt at this time without success, message left for pt to call this RN CM back. Jose Elias [place] CM
[2017-11-04 15:46] LABS: Anti-Cardiolipin Ab, IgG, Qn < 9 GPL U/mL (0-14); Anti-Cardiolipin Ab, IgM, Qn 13 MPL U/mL (0-12); Beta-2-Glycoprotein I IgA <9 (0-25); Beta-2-Glycoprotein I IgG <9 (0-20); Beta-2-Glycoprotein I IgM <9 (0-32)
[2017-11-08 12:07] LABS: Protein C Antigen 111 % (60-150); Protein C, Functional 119 % (73-180)
[2017-11-09 09:09] LABS: Anti-Thrombin 3 AG, Immunol 94 % (72-124); Antithrombin 3 Function 99 % (75-135)
== END 2017-10-31 11:30 | disposition home or self-care (01) | DRG 78 ==
LOC: ED 18:22 → PCU 20:32
PROVIDERS: Nurse Practitioner Family; Admitting Provider Internal Medicine; Emergency Provider Emergency Medicine; Family Provider Family Medicine; PCP Family Medicine; Visit Provider Internal Medicine
DX: I26.99 Other pulmonary embolism without acute cor pulmonale (principal); E86.0 Dehydration; O89.4 Spinal and epidural anesthesia-induced headache during the puerperium; J45.909 Unspecified asthma, uncomplicated; G43.909 Migraine, unspecified, not intractable, without status migrainosus; Z79.01 Long term (current) use of anticoagulants
CPT/HCPCS: 36415; 62273; 70450; 71275; 80048; 81240; 81241; 83880; 84484; 85025; 85027; 85300; 85301; 85302; 85303; 85610; 86146; 86147; 93005; 93306; 93970; 99285; J7030; J7040; J7120; Q9967; A4216

== ENCOUNTER → 2017-11-02 11:49 | Outpatient (CLI) | payer MEDICAID, SELFPAY ==
[2017-11-02 12:05] LABS: International Normalized Ratio 2.1; Prothrombin Time (Protime)PT. 23.4 SECONDS (11.7-14.9)
== END ==
PROVIDERS: Family Provider Family Medicine; Visit Provider Family Medicine
DX: I26.99 Other pulmonary embolism without acute cor pulmonale (principal)
CPT/HCPCS: 85610

== ENCOUNTER → 2017-11-04 14:31 | Outpatient (CLI) | payer MEDICAID, SELFPAY ==
[2017-11-04 14:56] LABS: International Normalized Ratio 2.1; Prothrombin Time (Protime)PT. 23.5 SECONDS (11.7-14.9)
== END ==
PROVIDERS: Family Provider Family Medicine; PCP Family Medicine; Visit Provider Family Medicine
DX: I26.99 Other pulmonary embolism without acute cor pulmonale (principal)
CPT/HCPCS: 85610

== ENCOUNTER → 2017-11-08 10:15 | Outpatient (CLI) | payer MEDICAID, SELFPAY ==
[2017-11-08 11:08] LABS: Absolute Neutrophil Count 6.2 X10^3/uL (2.0-7.7); Basophil# 0.01 X10^3/uL; Basophil% 0.1 % (0-1); Eosinophil# 0.02 X10^3/uL; Eosinophils% 0.3 % (0-5); Hematocrit 38.8 % (37-47); Hemoglobin 12.2 g/dl (12.0-15.0); Lymphocyte % 7.1 % (19-41); Mean Corp Hgb Conc 31.4 g/gl (32-36); Mean Corpuscular Hgb 25.5 pg (27.0-32.0); Mean Corpuscular Volume 81.2 fL (81-99); Mean Platelet Vol. 9.3 fl (6.2-12.0); Monocyte# 0.32 X10^3/uL; Monocyte% 4.5 % (0-10); Neutrophil # 6.18 X10^3/uL (2.7-7.7); Neutrophil % 87.9 % (47-70); Platelet Count 365 K/mm3 (150-450); RBC Distribution Width CV 15.7 % (11.6-14.6); RBC Distribution Width SD 45.9 fl (35.1-43.9); Red Blood Count 4.78 M/mm3 (4.2-5.4)
[2017-11-08 11:10] LABS: Differential Indicated SCAN CRITERIA MET; POSITIVE COUNT NO; POSITIVE DIFFERENTIAL YES; POSITIVE MORPHOLOGY NO
== END ==
PROVIDERS: Family Provider Family Medicine; PCP Family Medicine; Visit Provider Nurse Practitioner Women's Health
DX: R50.9 Fever, unspecified (principal)
CPT/HCPCS: 36415; 85025

== ENCOUNTER 2017-11-10 11:20 | Emergency (ER) | payer MEDICAID, SELFPAY ==
[2017-11-10 11:21] VITALS: BP 116/86; PULSE 133; RESP 16; TEMP 36.6; O2SAT 97; BMI 27.1
--- NOTE | 2017-11-10 12:33 | ED.DCSUM_ITS ---
- ER Visit Summary Date of Service: 11/10/17 Chief Complaint: Anxiety History of Present Illness: The patient is a 22 F who presents with anxiety. She is 3 weeks . She was also diagnosed a pulmonary embolism 1-1/2 weeks ago. Since that time she has been increasingly anxious having difficulty sleeping reports poor oral intake and is tearful. She did have depression with her prior . She denies chest pain shortness of breath fevers vomiting. Physical Examination: Afebrile heart rate 133 on initial vitals Patient anxious and tearful Heart regular rate slightly tachycardic on auscultation Lungs are clear Abdomen soft Alert Test Results: Not indicated Emergency Department Course and Treatment: Patient presents with anxiety and depression. She is not suicidal. She is not homicidal. We will give a prescription for Vistaril for her anxiety and refer her to the counseling center. I attempted to contact her generator switchboard operator to see if she was aware of any resources in the area specifically for depression. However her generator switchboard operator is currently not available. I did advise that the patient call the office as well. Patient understands return for new or worsening symptoms and was discharged home. Treatment Plan: [] Disposition: Discharge Impression: depression Anxiety This note was generated with 1[employer] dictation software. It may contain incorrect words, spelling, and punctuation that were not noted in review of the chart prior to signing ED Disposition - Plan for ED Patient: Chief Complaint: Anxiety Referrals: Dragan Rosenbaum MD [Primary Care Provider] -
--- NOTE | 2017-11-10 12:33 | ED.DEP ---
ED Disposition - Plan for ED Patient: Chief Complaint: Anxiety Instructions: ED Stress React, ED Depression Prescriptions: hydrOXYzine pamoate capsule [Vistaril] 25 mg PO TID PRN PRN #30 cap PRN Reason: Anxiety Referrals: Dragan Rosenbaum MD [Primary Care Provider] - Counseling,Center [GROUP OF PHYSICIANS] - Shaina Ye MD [STAFF PHYSICIAN] -
== END 2017-11-10 12:39 | disposition home or self-care (01) ==
LOC: ED 12:16
PROVIDERS: Emergency Provider Emergency Medicine; Family Provider Family Medicine; PCP Family Medicine
DX: F53 Mental and behavioral disorders associated with the puerperium, not elsewhere classified (principal); F41.9 Anxiety disorder, unspecified
CPT/HCPCS: 99282

== ENCOUNTER 2018-02-22 23:50 | Emergency (ER) | payer SELFPAY ==
[2018-02-22 23:51] VITALS: BP 129/74; PULSE 105; RESP 14; TEMP 36.1; O2SAT 99; BMI 26.9
--- NOTE | 2018-02-23 00:13 | EKG12_ITS ---
Test Reason : DIZZINESS Blood Pressure : / mmHG Vent. Rate : 092 BPM Atrial Rate : 092 BPM P-R Int : 140 ms QRS Dur : 070 ms QT Int : 362 ms P-R-T Axes : 046 052 032 degrees QTc Int : 447 ms Normal sinus rhythm with sinus arrhythmia Normal ECG Confirmed by ANABEL VENEGAS, BLU ([id number]), assignment editor DEMETRIO SONG ([id number]) on 02/25/2018 3:00:32 PM Referred By: ION Confirmed By:BLU LITTLE MD
[2018-02-23 00:36] VITALS: BP 117/70; BP 120/84; BP 121/82; PULSE 126; PULSE 129; PULSE 91
[2018-02-23 00:44] VITALS: BP 121/82; PULSE 95; RESP 16; O2SAT 99
[2018-02-23] MEDS: Ondansetron ODT 4 MG Tablet PO (00:47)
[2018-02-23 00:50] LABS: International Normalized Ratio 1.1; Prothrombin Time (Protime)PT. 13.8 SECONDS (11.7-14.9)
[2018-02-23 00:50] LABS: Bedside Glucose 99 mg/dL (70-110)
--- NOTE | 2018-02-23 01:01 | CT_ITS ---
HISTORY: HX PE ON 10-29-17, S/P AT THAT TIME- OFF THINNERS X 2 WEEKS NOW, C/O DIZZINESS, ANXIETY TECHNIQUE: Helically acquired images were obtained of the chest following IV contrast as per pulmonary angiogram protocol with 3D reconstructions. A radiation dose optimization technique was used for this scan. IV Contrast dosage and agent: 100 cc Isovue-370 contrast COMPARISON: 10/29/2017 FINDINGS: Previously seen bilateral pulmonary emboli have resolved. No acute or recurrent PE Thoracic aorta is normal in caliber. No aortic dissection or aneurysm. No pericardial effusion. Residual thymic tissue. Bilateral benign appearing hilar lymph nodes. Stable bilateral axillary lymph nodes. LUNGS AND LARGE AIRWAYS: Clear. PLEURA: Unremarkable. No pleural effusion or thickening. CT/CTA Chest W/WO Contrast IMPRESSION: 1. No acute disease or recurrent PE. Individualized dose optimization techniques were used for this CT. at 0223 Reported and signed by: James Menjivar MD Electronically Signed: James Menjivar, at 2:21 EST Tel , Service support ,
[2018-02-23 01:15] LABS: Mucous, Urine 0 SEEN /hpf (<or=2+); Red Blood Cells-Urine 0 SEEN /hpf (0-5); White Blood Cells 0 SEEN /hpf (0-5)
[2018-02-23 01:17] LABS: Color, Urine Yellow (Yellow); Glucose, Dipstick Normal (Normal); Ketone-Dipstick Negative (Negative); Leukocyte Esterase-Dipstick Negative /ul (Negative); Nitrite-Dipstick Negative (Negative); Occult Blood-Urine Negative /ul (Negative); Protein-Dipstick Negative (Negative); Urine Bilirubin Dipstick Negative (Negative); Urine Clarity Sl. Cloudy (Clear); Urine Urobilinogen Normal (Normal)
[2018-02-23 01:17] LABS: Absolute Lymphocyte Count 1.66 X10^3/ul (0.83-4.51); Absolute Neutrophil Count 2.8 X10^3/uL (2.0-7.7); Basophil# 0.01 X10^3/uL; Basophil% 0.2 % (0-1); Eosinophil# 0.12 X10^3/uL; Eosinophils% 2.4 % (0-5); Hematocrit 38.3 % (37-47); Hemoglobin 12.5 g/dl (12.0-15.0); Lymphocyte # 1.66 X10^3/ul (4.0); Lymphocyte % 32.6 % (19-41); Mean Corp Hgb Conc 32.6 g/gl (32-36); Mean Corpuscular Hgb 26.4 pg (27.0-32.0); Monocyte# 0.49 X10^3/uL; Monocyte% 9.6 % (0-10); Platelet Count 244 K/mm3 (150-450); RBC Distribution Width CV 13.3 % (11.6-14.6); RBC Distribution Width SD 39.4 fl (35.1-43.9); Red Blood Count 4.73 M/mm3 (4.2-5.4); White Blood Count 5.1 K/mm3 (4.4-11.0)
[2018-02-23 01:18] LABS: POSITIVE COUNT NO; POSITIVE DIFFERENTIAL NO; POSITIVE MORPHOLOGY NO
[2018-02-23] MEDS: 0.9% Normal Saline 1,000 ML 999 ML IV (01:18)
[2018-02-23 01:20] LABS: Internal QC Validated? YES +Cl - CLEAR BKGD; Pregnancy, Urine Negative Negative
[2018-02-23 01:25] LABS: Bacteria RARE /hpf (None Seen); Squamous Epithelial Cells - UA 0-5 SEEN /hpf (5-10)
[2018-02-23 01:29] LABS: Anion Gap 6 (5-15); BUN 14 mg/dL (7-18); BUN/Creat Ratio 17.9 RATIO (10-20); Calcium,Total 8.3 mg/dL (8.5-10.1); Chloride 109 mmol/L (98-107); Creatinine, Serum 0.78 mg/dL (0.55-1.02); EST Glomerular Filtration Rate 99 mL/min (>60); Est Glom Filt Rate - Afr Amer 120 mL/min (>60); Estimated Creatinine Clearance 82.64 ml/min; Glucose 96 mg/dL (74-106); Potassium 3.5 mmol/L (3.5-5.1); Sodium Level 140 mmol/L (136-145)
--- NOTE | 2018-02-23 02:47 | ED.DCSUM_ITS ---
- ER Visit Summary Date of Service: 02/23/18 Chief Complaint: Dizziness History of Present Illness: The patient is a 22 F who presents with dizziness. She was diagnosed with bilateral pulmonary emboli in October. She states she has had dizziness ever since then. This is no different or worse than it has been. She states she came in tonight because she was more anxious about it. She describes her dizziness as lightheaded. She denies any chest pain or shortness of breath. She has been off of her warfarin for 2 weeks because she states she does not have insurance and could not afford it. She also reports some nausea. Physical Examination: Afebrile heart rate 105 vitals otherwise normal Moist mucous membranes Heart regular rhythm slightly tachycardic Lungs are clear Abdomen soft Extremities nontender without edema 2+ radial pulses Alert Test Results: EKG shows sinus rhythm at a rate of 92. CBC BMP unremarkable. Urinalysis normal. negative. INR normal. PTT was 99. Orthostatic vital signs positive for tachycardia with heart rate increased from 91-129. CTA shows no acute disease or recurrent PE. Emergency Department Course and Treatment: Initially I just ordered BGT EKG INR and orthostatic vital signs. Patient did have significant tachycardia with change in position also further workup was pursued including to check for recurrent pulmonary embolism. Laboratory studies unremarkable and CTA was negative. Given that she does not currently have pulmonary embolism and has already been off of anticoagulation for 2 weeks I did not see the need to administer anticoagulation here. I have placed a consult to case management for financial assistance and filling her prescriptions and advised that she contact her primary care physician this morning. Patient was treated with IV fluids here. She is improved on reevaluation. She was discharged. Treatment Plan: [] Disposition: Discharge Impression: Dizziness Orthostatic tachycardia This note was generated with [employer] dictation software. It may contain incorrect words, spelling, and punctuation that were not noted in review of the chart prior to signing ED Disposition - Plan for ED Patient: Chief Complaint: Dizziness Referrals: Dragan Rosenbaum MD [Primary Care Provider] -
--- NOTE | 2018-02-23 02:47 | ED.DEP ---
ED Disposition - Plan for ED Patient: Chief Complaint: Dizziness Instructions: ED Dizziness UKO Referrals: Dragan Rosenbaum MD [Primary Care Provider] -
[2018-02-23 03:00] VITALS: BP 113/72; PULSE 65; RESP 18; O2SAT 98
--- NOTE | 2018-02-23 10:03 | CM.ED ---
Social Work Note Referral from Dr. Ochoa for financial resources. Appears that the pt is uninsured and needs assistance with obtaining prescriptions. Placed call to pt's number as listed on demo sheet. Unavailable and SW left a vm requesting a return phone call. HARRIET Mariano, RICHELLE
== END 2018-02-23 03:03 | disposition home or self-care (01) ==
LOC: ED 02-23 00:44
PROVIDERS: Emergency Provider Emergency Medicine; Family Provider Family Medicine; PCP Family Medicine
DX: I49.8 Other specified cardiac arrhythmias (principal); R42 Dizziness and giddiness; Z86.711 Personal history of pulmonary embolism; Z79.01 Long term (current) use of anticoagulants
CPT/HCPCS: 71275; 80048; 81001; 81025; 82962; 85025; 85610; 93005; 96360; 96361; 99283; J7030; Q9967; A4216

== ENCOUNTER 2018-03-31 21:11 | Emergency (ER) | payer MEDICAID, SELFPAY ==
[2018-03-31 21:12] VITALS: BP 118/85; PULSE 74; RESP 16; TEMP 36.2; O2SAT 100; BMI 26.4
--- NOTE | 2018-03-31 21:22 | ED.DCSUM_ITS ---
- ER Visit Summary Date of Service: 03/31/18 Chief Complaint: Right hand injury and pain after blunt trauma History of Present Illness: The patient is a 22 F who is right-handed. She struck a car door with her left hand last evening. She presents with pain that she localizes over the fourth metacarpal bone and fourth MCP joint. She denies paresthesia, anesthesia or motor weakness. Physical Examination: Vital signs noted and unremarkable. There is soft tissue swelling with ecchymosis over the fourth metacarpal bone. There is no rotational malalignment. Sensations intact. Capillary refill is normal. There is no subungual hematoma noted. There is no pain palpation over the distal, middle or proximal phalanx of the index, long, ring and little finger. There is no pain palpation over the carpal bones or distal radius or ulna. Test Results: Three-view x-ray of the hand interpreted by me as negative for fracture, subluxation, dislocation or foreign body Emergency Department Course and Treatment: Three-view x-ray of the hand was obtained to evaluate for fracture Treatment Plan: Rest, ice and anti-inflammatory Disposition: Discharged home with appropriate home-going instructions Impression: Contusion left hand blunt trauma initial encounter This note was generated with [employer] dictation software. It may contain incorrect words, spelling, and punctuation that were not noted in review of the chart prior to signing ED Disposition - Plan for ED Patient: Disposition: Home or Assisted Living Chief Complaint: Upper Extremity Injury Instructions: ED Contusion Hand Referrals: Dragan Rosenbaum MD [Primary Care Provider] - 1 Week if not improving Additional Instructions: Take 3 ibuprofen tablets every 6-8 hours for the next 3 days.
--- NOTE | 2018-03-31 21:30 | RAD_ITS ---
STUDY: X-RAY - LEFT HAND REASON FOR EXAM: Female, 22 years old. Left hand pain after punching a wall. TECHNIQUE: 3 view(s) of the hand. COMPARISON: None. FINDINGS: Normal radiocarpal articulation. Normal distal radioulnar joint. Normal visualized carpal bones. Normal carpal articulations Normal carpometacarpal articulation of the thumb. Normal second through fifth carpometacarpal joints. Normal metacarpi. Normal metacarpophalangeal joint of the thumb. Normal interphalangeal joint of the thumb. Normal proximal and distal phalanges of the thumb. Normal metacarpophalangeal joints of the second through fifth fingers. Normal proximal and distal interphalangeal joints of the second through fifth fingers. Normal phalanges of the second through fifth fingers. The soft tissue structures are unremarkable. RAD/Hand Min 3 Views IMPRESSION: Normal x-ray examination of the hand. Electronically Signed: Lex Ruiz DO at 21:48 EST Tel [phone], Service support ,
[2018-03-31 22:34] VITALS: BP 116/88; PULSE 84; RESP 16; O2SAT 100
== END 2018-03-31 22:35 | disposition home or self-care (01) ==
PROVIDERS: Emergency Provider Emergency Medicine; Family Provider Family Medicine; PCP Family Medicine
DX: S60.221A Contusion of right hand, initial encounter (principal); W22.09XA Striking against other stationary object, initial encounter; Y93.89 Activity, other specified; Z72.0 Tobacco use
CPT/HCPCS: 73130; 99282

== ENCOUNTER → 2018-08-29 15:23 | Outpatient (CLI) | payer MEDICAID, SELFPAY ==
[2018-08-29 13:43] VITALS: BMI 26.4
[2018-08-29 18:22] LABS: Chlamydia Trachomatis by PCR Negative (Negative); Neisserai gonorrhoeae by PCR Positive (Negative); Probe Check PASS
== END ==
PROVIDERS: Family Provider Family Medicine; PCP Family Medicine; Referring Provider Obstetrics & Gynecology; Visit Provider Obstetrics & Gynecology
DX: Z34.90 Encounter for supervision of normal pregnancy, unspecified, unspecified trimester (principal)
CPT/HCPCS: 87077; 87086; 87088; 87186; 87491; 87591

== ENCOUNTER → 2018-12-16 16:11 | Outpatient (CLI) | payer MEDICAID, SELFPAY ==
[2018-12-16 15:56] VITALS: BMI 25.4
--- NOTE | 2018-12-16 16:15 | US_ITS ---
STUDY: SECOND AND THIRD TRIMESTER OBSTETRICAL ULTRASOUND REASON FOR EXAM: Female, 23 years old. Routine survey. LMP: 06/29/2018 TECHNIQUE: Transabdominal TECHNICAL QUALITY: Adequate. PRIOR ULTRASOUND: None. FINDINGS: There is a single intrauterine fetus. The fetus is in a cephalic presentation. There is demonstrated cardiac activity with a heart rate of 149 bpm. There is a normal amniotic fluid volume. The largest amniotic fluid pocket measures 5.1 cm. The placenta is anterior in location and is not low lying. There are Grade 0 placental changes. The cervix measures 4.1 cm in length. The adnexal regions are not visualized. BIOMETRY: BPD: 6.11 cm: 24 weeks, 6 days HC: 22.40 cm: 24 weeks, 3 days AC: 19.01 cm: 23 weeks, 6 days FL: 4.41 cm: 24 weeks, 4 days age by current US: 24 weeks, 3 days. BISHNU by current US: 04/04/2019. Estimated weight: 666 grams, +/- 97 grams, 35 %. Age by LMP: 24 weeks, 2 days. BISHNU by LMP: 04/05/2019. ANATOMY: Gender: Male Cranium: Normal lateral ventricles. Normal choroid plexus. Normal cerebellum. Normal cisterna magna. Normal face, nose and lips. Chest: Normal 4-chamber heart. Abdomen/Pelvis: Normal diaphragm. Normal stomach. Normal abdominal wall. Normal cord insertion. Normal 3 vessel cord. Normal kidneys. Normal bladder. Spine: Normal cervical spine. Normal thoracic spine. Normal lumbar spine. Normal sacrum. Extremities: Normal bilateral upper extremities. Normal bilateral lower extremities. US/OB Anatomy Scan IMPRESSION: Single live intrauterine at 24 weeks, 3 days by current ultrasound with BISHNU of 04/04/2019. Heart rate at 149 bpm. No suspicious sonographic findings. Electronically Signed: Massimo Dukes MD at 8:31 EDT , Service support ,
[2018-12-16 17:47] LABS: Absolute Lymphocyte Count 1.92 X10^3/uL (0.83-4.51); Basophil# 0.01 X10^3/uL; Basophil% 0.1 % (0-1); Eosinophil# 0.06 X10^3/uL; Eosinophils% 0.8 % (0-5); Lymphocyte # 1.92 X10^3/ul (4.0); Mean Corp Hgb Conc 30.3 g/dL (32-36); Mean Corpuscular Hgb 24.8 pg (27.0-32.0); Mean Corpuscular Volume 81.7 fL (81-99); Mean Platelet Vol. 9.2 fl (6.2-12.0); Monocyte# 0.33 X10^3/uL; Monocyte% 4.5 % (0-10); NRBC Flagged by Analyzer 0 % (0-5); Neutrophil # 5.04 X10^3/uL (2.7-7.7); Neutrophil % 68.3 % (47-70); POSITIVE MORPHOLOGY YES; Platelet Count 280 K/mm3 (150-450); RBC Distribution Width CV 13.6 % (11.6-14.6); RBC Distribution Width SD 40.3 fl (35.1-43.9); Red Blood Count 4.04 M/mm3 (4.2-5.4); White Blood Count 7.4 K/mm3 (4.4-11.0)
[2018-12-16 17:50] LABS: Differential Indicated SCAN CRITERIA MET
[2018-12-16 18:15] LABS: Anisocytosis RARE; Microcytosis RARE; Platelet Estimate ADEQUATE (ADEQ)
[2018-12-17 10:29] LABS: HIV - WCH Non-Reactive (Nonreactive); Hepatitis B Surface Antibody Non-Reactive; Rubella IgG 111.4 IU/mL
[2018-12-23 01:45] LABS: Rapid Plasmin Reagin (RPR) NONREACTIVE (NONREACTIVE)
== END ==
PROVIDERS: Family Provider Family Medicine; PCP Family Medicine; Referring Provider Obstetrics & Gynecology; Visit Provider Obstetrics & Gynecology
DX: Z34.90 Encounter for supervision of normal pregnancy, unspecified, unspecified trimester (principal)
CPT/HCPCS: 36415; 76805; 85025; 86592; 86703; 86706; 86762; 86850; 86900; 86901

== ENCOUNTER → 2019-01-13 13:30 | Outpatient (CLI) | payer MEDICAID, SELFPAY ==
[2019-01-13 13:10] VITALS: BMI 26.4
[2019-01-13 14:54] LABS: Absolute Lymphocyte Count 1.16 X10^3/uL (0.83-4.51); Absolute Neutrophil Count 5.8 X10^3/uL (2.0-7.7); Basophil# 0.01 X10^3/uL; Basophil% 0.1 % (0-1); Eosinophil# 0.09 X10^3/uL; Eosinophils% 1.2 % (0-5); Lymphocyte # 1.16 X10^3/ul (4.0); Lymphocyte % 15.6 % (19-41); Mean Corpuscular Hgb 23.5 pg (27.0-32.0); Mean Corpuscular Volume 80.9 fL (81-99); Mean Platelet Vol. 9.4 fl (6.2-12.0); Monocyte# 0.38 X10^3/uL; Monocyte% 5.1 % (0-10); NRBC Flagged by Analyzer 0 % (0-5); Neutrophil # 5.77 X10^3/uL (2.7-7.7); Neutrophil % 77.6 % (47-70); Platelet Count 253 K/mm3 (150-450); RBC Distribution Width CV 14.6 % (11.6-14.6); RBC Distribution Width SD 42.3 fl (35.1-43.9); Red Blood Count 3.83 M/mm3 (4.2-5.4); White Blood Count 7.4 K/mm3 (4.4-11.0)
[2019-01-13 15:29] LABS: Glucose Challenge Gest 1H 50g 143 mg/dL (70-140)
== END ==
PROVIDERS: Family Provider Family Medicine; PCP Family Medicine; Referring Provider Obstetrics & Gynecology; Visit Provider Obstetrics & Gynecology
DX: Z34.90 Encounter for supervision of normal pregnancy, unspecified, unspecified trimester (principal)
CPT/HCPCS: 82950; 85025; 86850; 86900; 86901

== ENCOUNTER → 2019-01-19 12:11 | Outpatient (CLI) | payer MEDICAID, SELFPAY ==
[2019-01-13 13:10] VITALS: BMI 26.4
[2019-01-19 12:25] VITALS: BP 110/67; PULSE 110; RESP 16; TEMP 36.6; O2SAT 100; BMI 26.4
== END ==
PROVIDERS: Family Provider Family Medicine; PCP Family Medicine; Referring Provider Obstetrics & Gynecology; Visit Provider Obstetrics & Gynecology
DX: O99.019 Anemia complicating pregnancy, unspecified trimester (principal); Z3A.00 Weeks of gestation of pregnancy not specified
CPT/HCPCS: 96365; 96366; J1756; J7050; A4216

== ENCOUNTER → 2019-01-26 11:44 | Outpatient (CLI) | payer MEDICAID, SELFPAY ==
[2019-01-19 12:25] VITALS: BMI 26.4
[2019-01-26 11:14] VITALS: BMI 26.4
[2019-01-26 11:55] VITALS: BP 112/72; PULSE 96; TEMP 36.9; O2SAT 100; BMI 26.4
[2019-01-26 14:55] LABS: Chlamydia Trachomatis by PCR POSITIVE (Negative); Neisserai gonorrhoeae by PCR Negative (Negative); Probe Check PASS; Sample Adequacy Control PASS; Specimen Processing Control PASS
== END ==
PROVIDERS: Nurse Practitioner Women's Health; Family Provider Family Medicine; PCP Family Medicine; Referring Provider Obstetrics & Gynecology; Visit Provider Obstetrics & Gynecology
DX: O99.019 Anemia complicating pregnancy, unspecified trimester (principal); Z3A.00 Weeks of gestation of pregnancy not specified
CPT/HCPCS: 96365; 96366 ×2; 87491; 87591; J1756; J7050; A4216

== ENCOUNTER → 2019-02-02 13:02 | Outpatient (CLI) | payer MEDICAID, SELFPAY ==
[2019-01-19 12:25] VITALS: BMI 26.4
[2019-01-26 11:55] VITALS: BMI 26.4
[2019-02-02 13:17] VITALS: BP 104/63; PULSE 116; RESP 18; TEMP 36.6; O2SAT 98; BMI 26.4
== END ==
PROVIDERS: Family Provider Family Medicine; PCP Family Medicine; Referring Provider Obstetrics & Gynecology; Visit Provider Obstetrics & Gynecology
DX: O99.019 Anemia complicating pregnancy, unspecified trimester (principal); Z3A.00 Weeks of gestation of pregnancy not specified
CPT/HCPCS: 96365; 96366; J1756; J7050; A4216

== ENCOUNTER → 2019-02-06 09:57 | Outpatient (CLI) | payer MEDICAID, SELFPAY ==
[2019-01-13 13:10] VITALS: BMI 26.4
[2019-02-02 13:17] VITALS: BMI 26.4
[2019-02-06 11:07] LABS: Glucose GTT-Gestation. Fasting 75 mg/dL (<105)
== END ==
PROVIDERS: Family Provider Family Medicine; PCP Family Medicine; Referring Provider Obstetrics & Gynecology; Visit Provider Obstetrics & Gynecology
DX: O99.810 Abnormal glucose complicating pregnancy (principal); Z3A.00 Weeks of gestation of pregnancy not specified
CPT/HCPCS: 36415; 82951; 82952

== ENCOUNTER 2019-03-11 17:50 | Outpatient (CLI) | payer MEDICAID, SELFPAY ==
[2019-02-24 14:05] VITALS: BMI 26.4
[2019-03-11 18:24] VITALS: BMI 22.1
[2019-03-11 19:02] LABS: Color, Urine Yellow (Yellow); Glucose, Dipstick Normal (Normal); Ketone-Dipstick Negative (Negative); Leukocyte Esterase-Dipstick 100 /ul (Negative); Nitrite-Dipstick Negative (Negative); Occult Blood-Urine Negative /ul (Negative); Protein-Dipstick 15 mg/dl (Negative); Specific Gravity, Urine 1.015 (1.002-1.030); Urine Bilirubin Dipstick Negative (Negative); Urine Clarity Sl. Cloudy (Clear); Urine Urobilinogen 1 mg/dl (Normal); Urine pH 6.5 (5.0 - 8.0)
[2019-03-11 19:11] LABS: Bacteria 1+ /hpf (None Seen); Red Blood Cells-Urine 0-5 SEEN /hpf (0-5); Squamous Epithelial Cells - UA 0-5 SEEN /hpf (5-10); White Blood Cells 0-5 SEEN /hpf (0-5)
[2019-03-11 19:12] LABS: Mucous, Urine RARE /hpf (<or=2+)
[2019-03-11 20:41] LABS: Chlamydia Trachomatis by PCR Negative (Negative); Probe Check PASS
[2019-03-11 20:42] LABS: Neisserai gonorrhoeae by PCR Positive (Negative)
[2019-03-11] MEDS: Ceftriaxone 500 MG Vial 250 MG IM (21:26)
--- NOTE | 2019-03-13 17:55 | OB.TRI.PN ---
Progress Notes Date of Service: 03/11/19 Progress Note: seen for threatened PTL FHT: 130 Moderate variability reactive no decelerations category I tracing Bridgman: irregular Contractions threatened PTL reactive nst dc home patient states she is transferring care to [facility] encouraged patient to follow up with that office Laboratory Studies: Laboratory Tests 03/11/19 03/11/19 Range/Units 18:50 17:55 Urine Color Yellow (Yellow) Urine Clarity Sl. Cloudy (Clear) Urine pH 6.5 (5.0 - 8.0) Ur Specific [place] 1.015 (1.002-1.030) Urine Protein 15 H (Negative) mg/dl Urine Glucose (UA) Normal (Normal) mg/dl Urine Ketones Negative (Negative) mg/dl Urine Occult Blood Negative (Negative) /ul Urine Nitrite Negative (Negative) Urine Bilirubin Negative (Negative) mg/dL Urine Urobilinogen 1 H (Normal) mg/dl Ur Leukocyte Esterase 100 H (Negative) /ul Urine RBC 0-5 SEEN (0-5) /hpf Urine WBC 0-5 SEEN (0-5) /hpf Ur Squamous Epith Cells 0-5 SEEN (5-10) /hpf Urine Bacteria 1+ (None Seen) /hpf Urine Mucus RARE (<or=2+) /hpf Chlam trachomat DNA PCR Negative (Negative) N.gonorrhoeae DNA (PCR) Positive H (Negative) Multi Select Codes - Urinary/Genital Urinary/Genital CPT Codes: 05318-02 non-stress test Interp
== END 2019-03-11 22:00 | disposition home or self-care (01) ==
LOC: WPOUT 18:05 → WP 18:06
PROVIDERS: Family Provider Family Medicine; PCP Family Medicine; Referring Provider Obstetrics & Gynecology; Visit Provider Obstetrics & Gynecology
DX: O60.00 Preterm labor without delivery, unspecified trimester (principal); Z3A.00 Weeks of gestation of pregnancy not specified
CPT/HCPCS: 59025; 59050; 81001; 87086; 87088; 87491; 87591; 96372; 99218; G0378

== ENCOUNTER 2019-04-29 22:26 | Emergency (ER) | payer MEDICAID, SELFPAY ==
[2019-04-29 22:27] VITALS: BP 131/89; PULSE 75; RESP 16; TEMP 36.6; O2SAT 98; BMI 24.5
--- NOTE | 2019-04-29 22:41 | ED.VIS.GI ---
History of Present Illness Chief Complaint: Wound Check Informant: Patient - Abdominal Pain/Flank Pain Onset: Days - 3 Context: Sudden Onset - when bent over Timing: Continuous Quality: Burning - and sore Location: - - right pelvis, from right lateral aspect of incision, down toward inguinal crease; not above. Current Severity: Mild Maximum Severity: Mild Worsened by: Movement - bending over Relieved by: Remaining Still, - - has not tried any medications - Nausea/Vomiting/Emesis GI Symptom: Negative for: Nausea, Vomiting - Diarrhea/Melena/Hematochezia GI Symptom: Negative for: Diarrhea, Melena, Hematochezia Associated Symptoms: Negative for: Dysuria, Frequency, Hematuria, Urgency Narrative: Had a 1 month ago and has been recovering uneventfully until this. She states the pain is relatively mild but it is in her right pelvis. She is wondering if she ripped an internal stitch or something like that. It starts at the right aspect of her incision and goes down toward her inguinal crease. She denies any changes in appetite or GI function or stool caliber/consistency or urination. There is no radiation into her back for up above in her abdomen. She has had vaginal spotting ever since her that is persistent, continuing to improve but has yet to resolve. She is on no control and has been sexually active with her significant other since her delivery. No fevers or systemic symptoms. Has yet to talk to her packaging mechanic about this. - Past Medical History (1) Chlamydia infection affecting Status: Chronic Comment: 01/26 treated. Repeat at 36 wk (2) Gonorrhea affecting Status: Chronic Comment: Rocephin given (3) History of depression Status: Chronic Comment: monitor for symptoms (4) History of pulmonary embolus (PE) Status: Chronic Comment: , 40mg lovenox BID (5) Rh negative status during Status: Chronic Comment: rhogam 28 weeks or bleeding PRN (6) Asthma Status: Chronic Past Medical History - Allergies and Home Meds Allergies/Adverse Reactions: Allergies Penicillins Allergy (Unknown, Verified 04/29/19 22:27) Diarrhea family history nickel Allergy (Verified 04/29/19 22:27) Rash venom-honey bee [bee venom (honey bee)] Allergy (Verified 04/29/19 22:27) Swelling Primary Care Physician: Dragan Rosenbaum MD [Primary Care Provider] - Doctors: Rey - AFFILIATE MARKETING MANAGER Surgical History: - - Lives: With Family Smoking Status: Never smoker - Family History Maternal Family History: Reports: No pertinent history Review of Systems General: Denies: Chills, Fever, Sweats Eyes: Denies: Visual changes - bilaterally, Diplopia ENT: Denies: Rhinorrhea, Sore throat Cardiovascular: Denies: Chest pain, Palpitations Respiratory: Denies: Dyspnea, Cough, Dyspnea on exertion Gastrointestinal: Reports: Abdominal pain. Denies: Nausea, Vomiting, Diarrhea, Melena, Hematochezia Genitourinary: Reports: - - vaginal spotting without other discharge. Denies: Dysuria, Hematuria, Frequency Musculoskeletal: Denies: Back pain, Swelling, Extremity Pain Skin: Denies: Rash, Wounds Neurological: Denies: Headache, Weakness, Numbness Physical Exam Vital Signs/Narrative: Vital Signs Temp Pulse Resp BP Pulse Ox 04/29/19 22:27 97.9 F 75 16 131/89 H 98 Inital Vital Signs reviewed: Yes General: Well nourished, Well developed, No Acute Distress - well-appearing Head: Normocephalic, Atraumatic Eyes: Perrl, EOMI ENT: Moist mucous membranes, No rhinorrhea Neck: Supple, Nontender Cardiovascular: Regular rate, Regular rhythm, No murmurs Respiratory: No distress, CTA bilaterally, Chest nontender Abdomen: Soft, Nondistended, Normal bowel sounds, Tender - mildly, at right lateral aspect of incision, but deep to it and not tender at the skin incision itself, where there is barely a piece of suture material exposed, without collection/abscess, erythema, dehiscence, or erosion. mildly tender caudal to this into right pelvis. no palpable masses/nodules. nontender everywhere else, including McBurney's pt.. Negative for: Guarding, Rebound tenderness Back: Nontender, Normal Inspection. Negative for: CVA tenderness Extremities: Nontender, No edema. Negative for: Calf Tenderness Skin: Normal color, No rash, No Trauma Neurological: Alert, Oriented x3, Cranial nerves II-XII grossly intact, Normal Strength, Normal Sensation, Normal Gait Psychological: Normal affect, Normal Mood Diagnostic/Tx/Re-eval Laboratory Results 04/29/19 04/29/19 23:30 23:30 Urine Color Yellow Urine Clarity Sl. Cloudy Urine pH 6.5 Ur Specific [place] 1.015 Urine Protein Negative Urine Glucose (UA) Normal Urine Ketones 5 H Urine Occult Blood Negative Urine Nitrite Negative Urine Bilirubin Negative Urine Urobilinogen Normal Ur Leukocyte Esterase Negative Urine RBC 0 SEEN Urine WBC 0-5 SEEN Ur Squamous Epith Cells 10-25 SEEN Urine Bacteria RARE Urine Mucus 0 SEEN Urine Test Negative - Medical Decision Making Urinalysis was obtained and a , it is negative. This essentially rules out an ectopic . Patient is very mild discomfort, I think the differential includes abdominal wall processes such as scar tissue or suture discomfort, as well as some ovarian processes, however I do not think she has torsion or anything dangerous, she is very well-appearing and her pain has been reported as relatively mild. She was initially comfortable with ibuprofen and no testing, however I did talk her into giving us a urine so that we could at least rule out ectopic. She is comfortable following up with her packaging mechanic after the weekend. ED Disposition - Plan for ED Patient: Disposition: Home or Assisted Living Diagnosis: Pelvic pain Instructions: PELVIC PAIN, Unknown Cause Referrals: Dragan Rosenbaum MD [Primary Care Provider] - Shaina Ye MD [STAFF PHYSICIAN] - 3-5 Days Additional Instructions: ibuprofen as needed.
[2019-04-29 23:37] LABS: Mucous, Urine 0 SEEN /hpf (<or=2+); Red Blood Cells-Urine 0 SEEN /hpf (0-5)
[2019-04-29 23:42] LABS: Color, Urine Yellow (Yellow); Glucose, Dipstick Normal (Normal); Ketone-Dipstick 5 mg/dl (Negative); Leukocyte Esterase-Dipstick Negative /ul (Negative); Nitrite-Dipstick Negative (Negative); Occult Blood-Urine Negative /ul (Negative); Protein-Dipstick Negative (Negative); Specific Gravity, Urine 1.015 (1.002-1.030); Urine Bilirubin Dipstick Negative (Negative); Urine Clarity Sl. Cloudy (Clear); Urine Urobilinogen Normal (Normal); Urine pH 6.5 (5.0 - 8.0)
[2019-04-29 23:47] LABS: Internal QC Validated? YES +Cl - CLEAR BKGD; Pregnancy, Urine Negative Negative
[2019-04-29 23:49] LABS: Bacteria RARE /hpf (None Seen); Squamous Epithelial Cells - UA 10-25 SEEN /hpf (5-10); White Blood Cells 0-5 SEEN /hpf (0-5)
[2019-04-30] MEDS: Ibuprofen 600 MG Tablet PO (00:04)
[2019-04-30 00:07] VITALS: BP 120/86; PULSE 86; RESP 16; O2SAT 99
== END 2019-04-30 00:10 | disposition home or self-care (01) ==
PROVIDERS: Emergency Provider Emergency Medicine; PCP Family Medicine
DX: O90.89 Other complications of the puerperium, not elsewhere classified (principal); R10.2 Pelvic and perineal pain; J45.909 Unspecified asthma, uncomplicated; Z88.0 Allergy status to penicillin; Z86.711 Personal history of pulmonary embolism
CPT/HCPCS: 81001; 81025; 99282

== ENCOUNTER 2019-08-21 18:12 | Emergency (ER) | payer MEDICAID, SELFPAY ==
[2019-08-21 18:14] VITALS: BP 111/73; PULSE 122; RESP 18; TEMP 36.6; O2SAT 99; BMI 27.3
[2019-08-21 19:27] LABS: Mucous, Urine 0 SEEN /hpf (<or=2+); Red Blood Cells-Urine 0 SEEN /hpf (0-5); White Blood Cells 0 SEEN /hpf (0-5)
[2019-08-21 19:30] LABS: Color, Urine Yellow (Yellow); Glucose, Dipstick Normal (Normal); Ketone-Dipstick 5 mg/dl (Negative); Leukocyte Esterase-Dipstick Negative /ul (Negative); Nitrite-Dipstick Negative (Negative); Occult Blood-Urine Negative /ul (Negative); Protein-Dipstick 15 mg/dl (Negative); Specific Gravity, Urine 1.015 (1.002-1.030); Urine Bilirubin Dipstick Negative (Negative); Urine Clarity Sl. Cloudy (Clear); Urine Urobilinogen 8 mg/dl (Normal)
[2019-08-21 19:47] LABS: Bacteria 1+ /hpf (None Seen); Squamous Epithelial Cells - UA 10-25 SEEN /hpf (5-10)
--- NOTE | 2019-08-21 20:29 | ED.DCSUM_ITS ---
History of Present Illness Chief Complaint: Nausea/Vomiting Informant: Patient Onset: Today Current Severity: Moderate Maximum Severity: Moderate Narrative: She presents in her nausea and vomiting today. She is currently 15 weeks . She does report flank pain as well left side greater than right. She reports increased urination and mild dysuria. She has not had fever or chills. She has a history of PE and is currently on Lovenox. She has had 3 prior C- sections. - Past Medical History (1) Asthma Status: Chronic (2) History of pulmonary embolus (PE) Status: Chronic Comment: , 40mg lovenox BID Past Medical History - Allergies and Home Meds Allergies/Adverse Reactions: Allergies Penicillins Allergy (Unknown, Verified 08/21/19 18:17) Diarrhea family history nickel Allergy (Verified 08/21/19 18:17) Rash venom-honey bee [bee venom (honey bee)] Allergy (Verified 08/21/19 18:17) Swelling Primary Care Physician: Pinky Ruffin [STAFF PHYSICIAN] - Doctors[facility] LETTER [facility] CREDIT DOCUMENT EXAMINER Prior records reviewed: Yes Surgical History: - - Smoking Status: Never smoker - Family History Maternal Family History: Reports: No pertinent history Review of Systems General: Denies: Chills, Fever Eyes: Denies: Visual changes - bilaterally ENT: Denies: Bilateral ear pain Cardiovascular: Denies: Chest pain Respiratory: Denies: Dyspnea, Cough Gastrointestinal: Reports: Abdominal pain - Flank pain, Nausea, Vomiting. Denies: Diarrhea Genitourinary: Reports: Dysuria, Frequency Musculoskeletal: Denies: Extremity Pain Skin: Denies: Rash Neurological: Denies: Headache Hematologic: Denies: Easy bruising, Easy bleeding Allergy: Denies: Uticaria Physical Exam Vital Signs/Narrative: Vital Signs Temp Pulse Resp BP Pulse Ox 08/21/19 18:14 98 F 122 H 18 111/73 99 Inital Vital Signs reviewed: Yes General: Well nourished, Well developed Head: Normocephalic ENT: Moist mucous membranes Neck: Supple Cardiovascular: Regular rate, Regular rhythm Respiratory: No distress, CTA bilaterally Abdomen: Soft, Nontender Back: Negative for: CVA tenderness Extremities: Nontender Skin: Normal color Neurological: Alert, Oriented x3 Psychological: Normal affect Diagnostic/Tx/Re-eval Laboratory Results 08/21/19 08/21/19 08/21/19 19:20 20:13 20:13 WBC 7.6 RBC 4.40 Hgb 12.6 Hct 37.1 MCV 84.3 MCH 28.6 MCHC 34.0 RDW Std Deviation 41.2 RDW Coeff of Isam 13.3 Plt Count 214 MPV 9.2 Immature Gran % (Auto) 0.300 Neut % (Auto) 84.9 H Lymph % (Auto) 9.2 L Howell % (Auto) 4.7 Eos % (Auto) 0.8 Baso % (Auto) 0.1 Absolute Neuts (auto) 6.5 Absolute Lymphs (auto) 0.70 L Nucleated RBC % 0 Sodium 139 Potassium 3.7 Chloride 107 Carbon Dioxide 24.0 Anion Gap 8 BUN 11 Creatinine 0.69 Estim Creat Clear Calc 97.32 Est GFR (MDRD) Af Amer 138 Est GFR (MDRD) Non-Af 114 BUN/Creatinine Ratio 16.0 Glucose 86 Calcium 8.5 Urine Color Yellow Urine Clarity Sl. Cloudy Urine pH 6.0 Ur Specific [place] 1.015 Urine Protein 15 H Urine Glucose (UA) Normal Urine Ketones 5 H Urine Occult Blood Negative Urine Nitrite Negative Urine Bilirubin Negative Urine Urobilinogen 8 H Ur Leukocyte Esterase Negative Urine RBC 0 SEEN Urine WBC 0 SEEN Ur Squamous Epith Cells 10-25 SEEN Urine Bacteria 1+ Urine Mucus 0 SEEN - Medical Decision Making Patient is given IV fluids and Zofran. On repeat evaluation she does feel improved. Lab work is reassuring at this time. Urinalysis does show 1+ bacteria, however this is likely contamination with epithelial cells. Patient be given Zofran for home. She will follow-up with her LETTER OF CREDIT DOCUMENT EXAMINER at [facility]. ED Disposition - Plan for ED Patient: Disposition: Home or Assisted Living Diagnosis: Vomiting Instructions: ED Nausea Vomiting Adult Prescriptions: Ondansetron [Zofran Odt] 4 mg PO Q8H PRN PRN #10 tab PRN Reason: Nausea Transmission Status: Received by [id number] Referrals: Pinky Ruffin [STAFF PHYSICIAN] -
[2019-08-21 20:38] LABS: Absolute Neutrophil Count 6.5 X10^3/uL (2.0-7.7); Basophil# 0.01 X10^3/uL; Basophil% 0.1 % (0-1); Eosinophil# 0.06 X10^3/uL; Eosinophils% 0.8 % (0-5); Hematocrit 37.1 % (37-47); Hemoglobin 12.6 g/dL (12.0-15.0); Lymphocyte % 9.2 % (19-41); Mean Corpuscular Hgb 28.6 pg (27.0-32.0); Mean Corpuscular Volume 84.3 fL (81-99); Mean Platelet Vol. 9.2 fl (6.2-12.0); Monocyte# 0.36 X10^3/uL; Monocyte% 4.7 % (0-10); NRBC Flagged by Analyzer 0 % (0-5); Neutrophil # 6.46 X10^3/uL (2.7-7.7); Neutrophil % 84.9 % (47-70); Platelet Count 214 K/mm3 (150-450); RBC Distribution Width CV 13.3 % (11.6-14.6); RBC Distribution Width SD 41.2 fl (35.1-43.9); White Blood Count 7.6 K/mm3 (4.4-11.0)
[2019-08-21] MEDS: Acetaminophen 325 MG Tablet 650 MG PO (20:38)
[2019-08-21] MEDS: Ondansetron 4 MG/2 ML Vial IV (20:38)
[2019-08-21 20:48] LABS: Anion Gap 8 (5-15); BUN 11 mg/dL (7-18); Calcium,Total 8.5 mg/dL (8.5-10.1); Chloride 107 mmol/L (98-107); Creatinine, Serum 0.69 mg/dL (0.55-1.02); EST Glomerular Filtration Rate 114 mL/min (>60); Est Glom Filt Rate - Afr Amer 138 mL/min (>60); Estimated Creatinine Clearance 97.32 ml/min; Glucose 86 mg/dL (74-106); Potassium 3.7 mmol/L (3.5-5.1); Sodium Level 139 mmol/L (136-145)
[2019-08-21] MEDS: 0.9% Normal Saline 1,000 ML 150 ML IV (20:59)
[2019-08-21 22:08] VITALS: BP 108/70; PULSE 90; RESP 16; O2SAT 98
[2019-08-21 22:47] VITALS: BP 108/70; PULSE 90; RESP 16; O2SAT 98
== END 2019-08-21 22:53 | disposition home or self-care (01) ==
PROVIDERS: Emergency Provider Emergency Medicine; PCP Family Medicine
DX: O21.9 Vomiting of pregnancy, unspecified (principal); Z3A.15 15 weeks gestation of pregnancy; Z79.01 Long term (current) use of anticoagulants; Z86.711 Personal history of pulmonary embolism
CPT/HCPCS: 80048; 81001; 85025; 96361; 96374; 99284; J7030; A4216; J2405

== ENCOUNTER 2019-10-15 17:38 | Emergency (ER) | payer MEDICAID, SELFPAY ==
[2019-10-15 17:39] VITALS: BP 107/67; PULSE 98; RESP 16; TEMP 36.4; BMI 27.3
--- NOTE | 2019-10-15 17:51 | ED.VIS.GEN ---
History of Present Illness Chief Complaint: Burn Informant: Patient Narrative: 3-year-old female with no past medical history presents with sunburn to her bilateral lower extremities. States that she sustained these yusuf 2 days ago. Worked last 12 hours last night has had increasing pain. Denies any fever or chills. Patient has been placing aloe vera ointment on both of the legs. Patient is concerned because she has to work again this evening. Past Medical History - Allergies and Home Meds Allergies/Adverse Reactions: Allergies Penicillins Allergy (Unknown, Verified 10/15/19 17:41) Diarrhea family history nickel Allergy (Verified 10/15/19 17:41) Rash venom-honey bee [bee venom (honey bee)] Allergy (Verified 10/15/19 17:41) Swelling Primary Care Physician: Dragan Rosenbaum MD [Primary Care Provider] - Prior records reviewed: Yes Past Medical History: None Surgical History: - - Lives: Alone Smoking Status: Never smoker Alcohol: None Drugs: None - Family History Maternal Family History: Reports: No pertinent history Review of Systems General: Denies: Chills, Fever, Sweats Eyes: Denies: Visual changes - bilaterally, Diplopia ENT: Denies: Rhinorrhea, Sore throat Cardiovascular: Denies: Chest pain, Palpitations Respiratory: Denies: Dyspnea, Cough, Dyspnea on exertion Gastrointestinal: Denies: Abdominal pain, Nausea, Vomiting, Diarrhea, Melena, Hematochezia Genitourinary: Denies: Dysuria, Hematuria, Frequency Musculoskeletal: Denies: Back pain, Extremity Pain Skin: Reports: - - burn. Denies: Rash, Wounds Neurological: Denies: Headache, Weakness, Numbness Physical Exam Vital Signs/Narrative: Vital Signs Temp Pulse Resp BP 10/15/19 17:39 97.6 F L 98 16 107/67 Inital Vital Signs reviewed: Yes General: Well nourished, Well developed, No Acute Distress Head: Normocephalic, Atraumatic Eyes: Perrl, EOMI ENT: Moist mucous membranes, No rhinorrhea Neck: Supple, Nontender Cardiovascular: Regular rate, Regular rhythm, No murmurs Respiratory: No distress, CTA bilaterally, Chest nontender Abdomen: Soft, Nontender, Nondistended, Normal bowel sounds Back: Nontender, Normal Inspection Extremities: Nontender, No edema Skin: No rash, - - 1st degree blanchable burn to the bilateral lower extremities beginning at the knee and going to the ankle. Anterior aspect. No overlying infection. Neurological: Alert, Oriented x3, Cranial nerves II-XII grossly intact, Normal Strength, Normal Sensation Psychological: Normal affect, Normal Mood Diagnostic/Tx/Re-eval - Medical Decision Making Appears well nontoxic. Bilateral lower extremity sunburn. Patient will be given a one-time application of Silvadene cream. Advised on continue aloe vera. Given the night off of work. Asked to return for new or worsening symptoms. Patient agreeable and discharged home in stable condition. ED Disposition - Plan for ED Patient: Diagnosis: Sunburn Instructions: ED Burn Sunburn Referrals: Dragan Rosenbaum MD [Primary Care Provider] -
[2019-10-15] MEDS: Silver Sulfadiazine 1% Crm 50 gm Bottle 1 APPLIC TOPICAL (18:03)
== END 2019-10-15 18:10 | disposition home or self-care (01) ==
LOC: ED 17:54
PROVIDERS: Emergency Provider Emergency Medicine; PCP Family Medicine
DX: L55.0 Sunburn of first degree (principal)
CPT/HCPCS: 99281; 99282

== ENCOUNTER 2019-11-02 10:03 | Outpatient (CLI) | payer MEDICAID, SELFPAY ==
[2019-11-02 10:18] VITALS: BP 99/59; PULSE 134
[2019-11-02 10:19] VITALS: TEMP 36.7; O2SAT 97
[2019-11-02 10:20] VITALS: PULSE 117; O2SAT 97
[2019-11-02 10:25] VITALS: PULSE 108; O2SAT 98
[2019-11-02 10:30] VITALS: PULSE 102; O2SAT 97
[2019-11-02 11:13] VITALS: BMI 28.5
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
--- NOTE | 2019-11-02 13:02 | NURSING ---
Will be discharged with step mother after seen by social work.
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
== END 2019-11-02 13:50 | disposition home or self-care (01) ==
LOC: WPOUT 10:07 → WP 10:07
PROVIDERS: PCP Family Medicine; Referring Provider Advanced Practice Midwife; Visit Provider Advanced Practice Midwife
DX: O9A.312 Physical abuse complicating pregnancy, second trimester (principal); Z3A.25 25 weeks gestation of pregnancy; J45.909 Unspecified asthma, uncomplicated; O99.512 Diseases of the respiratory system complicating pregnancy, second trimester; K30 Functional dyspepsia
CPT/HCPCS: 59050; 99218; G0378

== ENCOUNTER 2019-12-02 02:10 | Outpatient (CLI) | payer MEDICAID, SELFPAY ==
[2019-12-02 02:22] VITALS: BP 110/67; PULSE 94; O2SAT 98
[2019-12-02 02:31] VITALS: BMI 28.9
[2019-12-02 02:54] LABS: Color, Urine Yellow (Yellow); Glucose, Dipstick Normal (Normal); Ketone-Dipstick Negative (Negative); Leukocyte Esterase-Dipstick Negative /ul (Negative); Nitrite-Dipstick Negative (Negative); Occult Blood-Urine Negative /ul (Negative); Protein-Dipstick Negative (Negative); Specific Gravity, Urine 1.015 (1.002-1.030); Urine Bilirubin Dipstick Negative (Negative); Urine Clarity Sl. Cloudy (Clear); Urine Urobilinogen 1 mg/dl (Normal)
--- NOTE | 2019-12-03 07:43 | OB.TRI.NOTE ---
History of Present Illness Date of Service: 12/02/19 Was patient seen by the physician?: No Reason For Visit: R/O PTL Date of Service: 12/02/19 Final BISHNU: 02/13/20 Final BISHNU Source: LMP Gestational age: 29 Weeks and 5 Days Allergies Penicillins Allergy (Unknown, Verified 12/02/19 17:38) Diarrhea family history nickel Allergy (Verified 12/02/19 17:38) Rash venom-honey bee [bee venom (honey bee)] Allergy (Verified 12/02/19 17:38) Swelling - Pertinent Past Medical History Medical History: Past Medical History (Last Reviewed 02/10/19 @ 14:28 by Letitia Peraza) Asthma (Chronic) Surgical History: Past Surgical History (Last Reviewed 02/10/19 @ 14:28 by Letitia Peraza) History of placement of ear tubes S/P S/P tonsillectomy and adenoidectomy Laboratory Studies: Laboratory Tests 12/02/19 Range/Units 02:35 Urine Color Yellow (Yellow) Urine Clarity Sl. Cloudy (Clear) Urine pH 7.0 (5.0 - 8.0) Ur Specific [place] 1.015 (1.002-1.030) Urine Protein Negative (Negative) mg/dl Urine Glucose (UA) Normal (Normal) mg/dl Urine Ketones Negative (Negative) mg/dl Urine Occult Blood Negative (Negative) /ul Urine Nitrite Negative (Negative) Urine Bilirubin Negative (Negative) mg/dL Urine Urobilinogen 1 H (Normal) mg/dl Ur Leukocyte Esterase Negative (Negative) /ul Physical Exam Vitals: Vital Signs Pulse BP Pulse Ox 94 110/67 98 12/02/19 02:22 12/02/19 02:22 12/02/19 02:22 NST - FHR Rate Baby A Baseline: 130 Variability:: Moderate Accelerations:: 15 x 15 Decelerations:: None NST Reactive:: Yes FHR Category:: Category I Uterine Activity:: irritability, occasional ctx Impression/Plan 24yo @ 29.4 weeks- Back pain- not in labor ffn negative cervix closed nst reassuring dc home -rest and hydrate UA reviewed
== END 2019-12-02 04:00 | disposition home or self-care (01) ==
LOC: WPOUT 02:19 → WP 02:19
PROVIDERS: PCP Family Medicine; Visit Provider Obstetrics & Gynecology
DX: M54.9 Dorsalgia, unspecified (principal); O26.893 Other specified pregnancy related conditions, third trimester; Z3A.29 29 weeks gestation of pregnancy
CPT/HCPCS: 59025; 59050; 81002; 99218; G0378

== ENCOUNTER 2019-12-02 17:25 | Outpatient (CLI) | payer MEDICAID, SELFPAY ==
[2019-12-02 02:31] VITALS: BMI 28.9
[2019-12-02 17:10] VITALS: BP 113/57; PULSE 94; RESP 16; TEMP 36.1; O2SAT 95; BMI 28.9
--- NOTE | 2019-12-02 17:21 | ED.RN ---
talked to mark carnes in ob. due to pts symptoms she is going to go to OB to rule out labor and call her
[2019-12-02 17:35] VITALS: TEMP 37.2
[2019-12-02 17:36] VITALS: BP 113/55; PULSE 94
[2019-12-02 17:37] VITALS: BMI 28.3
--- NOTE | 2019-12-03 07:46 | OB.TRI.NOTE ---
History of Present Illness Date of Service: 12/02/19 Was patient seen by the physician?: No Reason For Visit: BACK PAIN Date of Service: 12/02/19 Final BISHNU: 02/13/20 Final BISHNU Source: LMP Gestational age: 29 Weeks and 5 Days Allergies Penicillins Allergy (Unknown, Verified 12/02/19 17:38) Diarrhea family history nickel Allergy (Verified 12/02/19 17:38) Rash venom-honey bee [bee venom (honey bee)] Allergy (Verified 12/02/19 17:38) Swelling - Pertinent Past Medical History Medical History: Past Medical History (Last Reviewed 02/10/19 @ 14:28 by Letitia Peraza) Asthma (Chronic) Surgical History: Past Surgical History (Last Reviewed 02/10/19 @ 14:28 by Letitia Peraza) History of placement of ear tubes S/P S/P tonsillectomy and adenoidectomy Physical Exam Vitals: Vital Signs Temp Pulse Resp BP Pulse Ox 98.9 F 94 16 113/55 L 95 12/02/19 17:35 12/02/19 17:36 12/02/19 17:10 12/02/19 17:36 12/02/19 17:10 NST - FHR Rate Baby A Baseline: 130 Variability:: Moderate Accelerations:: 15 x 15 Decelerations:: None NST Reactive:: Yes FHR Category:: Category I Uterine Activity:: irritability Impression/Plan 24yo @ 29.4 wks- back pain not in labor- dc home rest and hydrate- call office wednesday to be seen- return is worsening symptoms
--- NOTE | 2019-12-03 09:50 | PCM.OPRPT ---
Vaginal Delivery Maternal Presentation: Active Labor, Spontaneous Rupture of Membranes Amniotic Membrane Rupture Type: Spontaneous at home Amniotic Fluid Description: Clear Final BISHNU: 12/02/19 Gestational age: 40 Weeks and 1 Days Date of Procedure: 12/03/19 Pre-Operative Diagnosis: term gestation, SROM Post-Operative Diagnosis: Same, Live male Surgery/ Procedure Performed: Spontaneous Vaginal Delivery Type of Anesthesia: Epidural Description of Procedure: of live male infant. Loose nuchal x 1 reduced prior to delivery. Infant head delivered followed by delivery of anterior shoulder with gentle downward traction and good maternal pushing efforts. was then placed on maternal chest for immediate skin to skin- was vigorous. Delayed cord clamping performed. Presentation: Vertex Placental Delivery Description: Spontaneous Placenta Disposition: [facility] Cord Vessel Description: 3 Vessels Nuchal Cord Compression: With compression Cord Entanglement: Around neck x 1, loose Estimated Blood Loss: 150 A gender: Male (1 minute): 8 (5 minute): 9 Episiotomy Description: None Laceration: None Medications given after delivery: IV Pitocin Complications: None
== END 2019-12-02 18:15 | disposition home or self-care (01) ==
LOC: WPOUT 17:29 → WP 17:29
PROVIDERS: PCP Family Medicine; Visit Provider Obstetrics & Gynecology
DX: O26.893 Other specified pregnancy related conditions, third trimester (principal); M54.9 Dorsalgia, unspecified; Z3A.29 29 weeks gestation of pregnancy
CPT/HCPCS: 59025; 59050; 81002; 99218; G0378

== ENCOUNTER 2019-12-11 19:28 | Outpatient (CLI) | payer MEDICAID, SELFPAY ==
[2019-12-11 19:48] VITALS: BP 114/71; PULSE 111; O2SAT 98
[2019-12-11 19:56] VITALS: BMI 28.4
--- NOTE | 2019-12-14 20:36 | OB.TRI.NOTE ---
History of Present Illness Date of Service: 12/11/19 Was patient seen by the physician?: No Reason For Visit: RULE OUT LABOR Date of Service: 12/11/19 Final BISHNU: 02/13/20 Final BISHNU Source: LMP Gestational age: 31 Weeks and 2 Days Allergies Penicillins Allergy (Unknown, Verified 12/14/19 13:25) Diarrhea family history nickel Allergy (Verified 12/14/19 13:25) Rash venom-honey bee [bee venom (honey bee)] Allergy (Verified 12/14/19 13:25) Swelling - Pertinent Past Medical History Medical History: Past Medical History (Last Reviewed 02/10/19 @ 14:28 by Letitia Peraza) Asthma (Chronic) Surgical History: Past Surgical History (Last Reviewed 02/10/19 @ 14:28 by Letitia Peraza) History of placement of ear tubes S/P S/P tonsillectomy and adenoidectomy Physical Exam Vitals: Vital Signs Pulse BP Pulse Ox 111 H 114/71 98 12/11/19 19:48 12/11/19 19:48 12/11/19 19:48 NST - FHR Rate Baby A Baseline: 135 Variability:: Moderate Accelerations:: 15 x 15 Decelerations:: None NST Reactive:: Yes FHR Category:: Category I Uterine Activity:: irritability Impression/Plan 24 YOF w/ threatened labor back pain- musculoskeletal f/u in office or prn
== END 2019-12-11 21:45 | disposition home or self-care (01) ==
LOC: WPOUT 19:34 → OBT 19:34
PROVIDERS: PCP Family Medicine; Visit Provider Obstetrics & Gynecology
DX: O47.03 False labor before 37 completed weeks of gestation, third trimester (principal); M54.9 Dorsalgia, unspecified; Z3A.31 31 weeks gestation of pregnancy
CPT/HCPCS: 59025; 59050; 99218; G0378

== ENCOUNTER 2019-12-14 13:24 | Emergency (ER) | payer MEDICAID, SELFPAY ==
[2019-12-14 13:25] VITALS: BP 113/65; PULSE 106; RESP 16; TEMP 36.4; O2SAT 99; BMI 27.4
--- NOTE | 2019-12-14 13:29 | EKG12_ITS ---
Test Reason : SOB Blood Pressure : / mmHG Vent. Rate : 099 BPM Atrial Rate : 099 BPM P-R Int : 140 ms QRS Dur : 064 ms QT Int : 348 ms P-R-T Axes : 042 033 015 degrees QTc Int : 446 ms Normal sinus rhythm with sinus arrhythmia Normal ECG Confirmed by SILVIA VENEGAS, VARGHESE ([id number]), supervising editor news reel OLIVIA BURGESS ([id number]) on 12/20/2019 10:26:29 AM Referred By: LINDA Confirmed By:VARGHESE VEGA MD
--- NOTE | 2019-12-14 13:31 | CT_ITS ---
STUDY: CTA CHEST REASON FOR EXAM: Female, 24 years old. DYSPNEA, HX PE, 31 WKS -ABD SHIELDED RADIATION DOSAGE (If Supplied By Facility): CTDIvol = ( 10.01 ) mGy, DLP = ( 369.86 ) mGycm TECHNIQUE: The examination was performed with the intravenous administration of IV 75mL Isovue-370. Post-processing of the angiographic images was performed, with multiplanar reformation and 3D reconstruction. Individualized dose optimization techniques were used for this CT. COMPARISON: None. FINDINGS: Normal enhancement of the main pulmonary artery and right and left pulmonary arteries. Normal enhancement of the bilateral peripheral pulmonary arteries. There is no demonstrated pulmonary embolism. Normal thoracic aorta and visualized great vessels. There is no demonstrated aortic dissection. Normal heart and pericardium. Normal mediastinum. Normal hilar regions. Normal visualized trachea and bronchi. The lungs are well expanded. Normal pulmonary parenchyma. Normal pleura. Normal chest wall structures. Normal osseous structures. Normal visualized upper abdomen. CT/CTA Chest W/WO Contrast IMPRESSION: Normal CTA chest examination, without a demonstrated pulmonary embolism or arterial dissection. Electronically Signed: Hebert Peralta, at 15:47 EDT , Service support ,
--- NOTE | 2019-12-14 13:43 | ED.DCSUM_ITS ---
- ER Visit Summary Date of Service: 12/14/19 Chief Complaint: Shortness of breath History of Present Illness: The patient is a 24 F who presents with shortness of breath has been getting worse over the past 4 days. Patient states it began rather suddenly. Patient states she has a history of pulmonary embolism. Patient is approximately 31 weeks . Patient states she is supposed to be taking Lovenox but has not taken that over the last week. Patient states her breathing is worse with any exertion and better with rest. Patient denies any cough. Patient denies any fevers or chills. Patient denies any chest pain. Patient does admit to some back pain. Patient also admits to some palpitations where she feels like her heart is racing. Physical Examination: Vital signs are stable except for mild tachycardia of 106. Patient is afebrile. Patient is in no acute distress. Oral mucosa is pink and moist. Neck is supple. Trachea is midline. There is no JVD noted. Heart was regular rate and rhythm. Lungs are clear and equal bilaterally. Abdomen is soft. Bowel sounds are normal. There is no tenderness. There is no rebound or guarding noted. Skin is warm dry. Cranial nerves II through XII are intact. There are no focal motor or sensory deficits noted. Extremities are intact. There is no calf tenderness or edema. Test Results: CBC shows a mild anemia with a hemoglobin of 9.9 hematocrit 31.3. Basic metabolic profile is within normal limits. PT with INR and PTT were normal. CTA of the chest was obtained. There is no evidence of pulmonary embolism or aortic dissection. It was interpreted by the radiologist and reviewed by myself. Emergency Department Course and Treatment: Patient was advised of her findings. Patient was instructed to follow-up with her SENIOR VICE PRESIDENT & GENERAL COUNSEL in 5 to 7 days. Patient was instructed to restart her Lovenox as previously prescribed. Patient understood and was agreeable with the plan. All questions were answered. Disposition: Discharge home Impression: Dyspnea This note was generated with [employer] dictation software. It may contain incorrect words, spelling, and punctuation that were not noted in review of the chart prior to signing ED Disposition - Plan for ED Patient: Disposition: Home or Assisted Living Diagnosis: Dyspnea Instructions: ED Dyspnea Referrals: Dragan Rosenbaum MD [Primary Care Provider] - 5-7 Days Geronimo,Eli, CNM [Certified Nurse Hedis Analyst] - 3-5 Days
[2019-12-14 14:08] LABS: Absolute Lymphocyte Count 1.25 X10^3/uL (0.83-4.51); Absolute Neutrophil Count 5.9 X10^3/uL (2.0-7.7); Basophil# 0.01 X10^3/uL; Basophil% 0.1 % (0-1); Eosinophils% 1.3 % (0-5); Hematocrit 31.3 % (37-47); Hemoglobin 9.9 g/dL (12.0-15.0); Lymphocyte # 1.25 X10^3/ul (4.0); Lymphocyte % 15.9 % (19-41); Mean Corp Hgb Conc 31.6 g/dL (32-36); Mean Corpuscular Hgb 25.6 pg (27.0-32.0); Mean Corpuscular Volume 81.1 fL (81-99); Monocyte# 0.59 X10^3/uL; Monocyte% 7.5 % (0-10); NRBC Flagged by Analyzer 0 % (0-5); Neutrophil # 5.89 X10^3/uL (2.7-7.7); Neutrophil % 74.9 % (47-70); POSITIVE COUNT YES; RBC Distribution Width CV 14.4 % (11.6-14.6); RBC Distribution Width SD 41.7 fl (35.1-43.9); Red Blood Count 3.86 M/mm3 (4.2-5.4); White Blood Count 7.9 K/mm3 (4.4-11.0)
[2019-12-14 14:22] LABS: Differential Indicated SCAN CRITERIA MET
[2019-12-14 14:24] LABS: Platelet Estimate ADEQUATE (ADEQ)
[2019-12-14 14:48] LABS: Anion Gap 5 (5-15); BUN 8 mg/dL (7-18); Calcium,Total 7.9 mg/dL (8.5-10.1); Chloride 106 mmol/L (98-107); EST Glomerular Filtration Rate 95 mL/min (>60); Est Glom Filt Rate - Afr Amer 115 mL/min (>60); Estimated Creatinine Clearance 87.24 ml/min; Glucose 85 mg/dL (74-106); Sodium Level 137 mmol/L (136-145)
[2019-12-14 15:09] LABS: International Normalized Ratio 1.1; Prothrombin Time (Protime)PT. 13.3 SECONDS (11.7-14.9)
[2019-12-14 15:11] LABS: Partial Thromboplast Time 25.7 Seconds (24.1-36.2)
[2019-12-14 15:24] VITALS: BP 99/63; PULSE 111; RESP 18; O2SAT 97
[2019-12-14 16:51] VITALS: BP 94/65; PULSE 84; RESP 19; TEMP 36.1
--- NOTE | 2019-12-14 16:51 | ED.RN ---
PT EDUCATED ON WRITTEN DISCHARGE INSTRUCTIONS, AND FOLLOW UP. EDUCATED TO RETURN TO ED FOR ANY NEW OR WORSENED SX. PT VERBALIZES UNDERSTANDING AND DENIES ANY FURTHER QUESTIONS. IV D/C AND COVERED WITH 2X2 GAUZE AND PAPER TAPE. PT DRESSES SELF AND AMBULATES OUT OF DEPT WITHOUT ASSISTANCE.
== END 2019-12-14 16:52 | disposition home or self-care (01) ==
PROVIDERS: Emergency Provider Emergency Medicine; PCP Family Medicine
DX: R06.00 Dyspnea, unspecified (principal); O26.893 Other specified pregnancy related conditions, third trimester; Z3A.31 31 weeks gestation of pregnancy; Z86.711 Personal history of pulmonary embolism
CPT/HCPCS: 71275; 80048; 85025; 85610; 85730; 93005; 99284; Q9967

== ENCOUNTER 2020-01-21 20:25 | Outpatient (CLI) | payer MEDICAID, SELFPAY ==
[2020-01-21 20:46] VITALS: BMI 29.5
[2020-01-21 20:51] VITALS: BP 105/56; PULSE 136; TEMP 36.8; O2SAT 96
[2020-01-21 21:57] LABS: Mucous, Urine 0 SEEN /hpf (<or=2+); Red Blood Cells-Urine 0 SEEN /hpf (0-5); White Blood Cells 0 SEEN /hpf (0-5)
[2020-01-21 21:59] LABS: Color, Urine Straw (Yellow); Glucose, Dipstick 50 mg/dl (Normal); Ketone-Dipstick Negative (Negative); Leukocyte Esterase-Dipstick 500 /ul (Negative); Nitrite-Dipstick Negative (Negative); Occult Blood-Urine Negative /ul (Negative); Protein-Dipstick Negative (Negative); Urine Bilirubin Dipstick Negative (Negative); Urine Clarity Sl. Cloudy (Clear); Urine Urobilinogen Normal (Normal)
[2020-01-21 22:05] LABS: Squamous Epithelial Cells - UA 0-5 SEEN /hpf (5-10)
[2020-01-21 22:07] LABS: Bacteria RARE /hpf (None Seen)
--- NOTE | 2020-01-23 10:19 | OB.TRI.PN ---
Progress Notes Date of Service: 01/23/20 Progress Note: at 36.5 days presented for contractions. No vaginal bleeding or leakage of fluid. O: 125, moderate variability, accels, Reactive NST TOCO: Irregular Cervix closed A: False Labor P: 1) False labor. Ok to D/C home with labor precautions Laboratory Studies: Laboratory Tests 01/21/20 Range/Units 21:48 Urine Color Straw (Yellow) Urine Clarity Sl. Cloudy (Clear) Urine pH 7.0 (5.0 - 8.0) Ur Specific [place] 1.010 (1.002-1.030) Urine Protein Negative (Negative) mg/dl Urine Glucose (UA) 50 H (Normal) mg/dl Urine Ketones Negative (Negative) mg/dl Urine Occult Blood Negative (Negative) /ul Urine Nitrite Negative (Negative) Urine Bilirubin Negative (Negative) mg/dL Urine Urobilinogen Normal (Normal) mg/dl Ur Leukocyte Esterase 500 H (Negative) /ul Urine RBC 0 SEEN (0-5) /hpf Urine WBC 0 SEEN (0-5) /hpf Ur Squamous Epith Cells 0-5 SEEN (5-10) /hpf Urine Bacteria RARE (None Seen) /hpf Urine Mucus 0 SEEN (<or=2+) /hpf
== END 2020-01-21 22:26 | disposition home or self-care (01) ==
LOC: WPOUT 20:33 → WP 20:34
PROVIDERS: PCP Family Medicine; Visit Provider Advanced Practice Midwife
DX: O47.03 False labor before 37 completed weeks of gestation, third trimester (principal); Z3A.36 36 weeks gestation of pregnancy
CPT/HCPCS: 59025; 59050; 81001; 99218; G0378

== ENCOUNTER 2020-01-29 17:10 | Outpatient (CLI) | payer MEDICAID, SELFPAY ==
[2020-01-29 17:24] VITALS: TEMP 36.3
[2020-01-29 17:33] VITALS: BMI 29.7
[2020-01-29 17:38] VITALS: BP 111/69; PULSE 98; PULSE 99; TEMP 36.3; O2SAT 98
--- NOTE | 2020-01-29 20:33 | OB.TRI.NOTE ---
History of Present Illness Date of Service: 01/29/20 Was patient seen by the physician?: No Reason For Visit: RULE OUT LABOR Date of Service: 01/29/20 Final BISHNU: 02/13/20 Final BISHNU Source: LMP Gestational age: 37 Weeks and 6 Days History of Present Illness: 24yo @ 37.6 weeks, c/o contractions- r/o labor Allergies Penicillins Allergy (Unknown, Verified 01/29/20 17:31) Diarrhea family history nickel Allergy (Verified 01/29/20 17:31) Rash venom-honey bee [bee venom (honey bee)] Allergy (Verified 01/29/20 17:31) Swelling - Pertinent Past Medical History Medical History: Past Medical History (Last Reviewed 02/10/19 @ 14:28 by Letitia Peraza) Asthma (Chronic) Surgical History: Past Surgical History (Last Reviewed 02/10/19 @ 14:28 by Letitia Peraza) History of placement of ear tubes S/P S/P tonsillectomy and adenoidectomy Physical Exam Vitals: Vital Signs Temp Pulse BP Pulse Ox 97.4 F L 98 111/69 98 01/29/20 17:38 01/29/20 17:38 01/29/20 17:38 01/29/20 17:38 Cervix Dilation (cm): 0 Station: -3 Effacement (%): 0 NST - FHR Rate Baby A Baseline: 135 Variability:: Moderate Accelerations:: 15 x 15 Decelerations:: None NST Reactive:: Yes FHR Category:: Category I Uterine Activity:: irregular Impression/Plan 24yo @ 37.6 weeks- contractions, False labor 1) cervical exam- closed/thick/high per Nursing 2) irregular contractions with Cat 1 FHR 3) DC HOME follow up as scheduled in office
[2020-02-04 03:33] VITALS: BP 107/69; PULSE 86; TEMP 36.3; O2SAT 98
== END 2020-01-29 18:45 | disposition home or self-care (01) ==
LOC: WPOUT 17:13 → WP 17:14
PROVIDERS: PCP Family Medicine; Referring Provider Obstetrics & Gynecology; Visit Provider Obstetrics & Gynecology
DX: O47.1 False labor at or after 37 completed weeks of gestation (principal); Z3A.37 37 weeks gestation of pregnancy
CPT/HCPCS: 59025; 59050; 99218; G0378

== ENCOUNTER → 2020-01-31 17:54 | Outpatient (CLI) | payer MEDICAID, SELFPAY ==
[2020-01-21 20:46] VITALS: BMI 29.5
[2020-01-29 17:33] VITALS: BMI 29.7
== END ==
PROVIDERS: PCP Family Medicine; Referring Provider Obstetrics & Gynecology; Visit Provider Obstetrics & Gynecology
DX: Z11.59 Encounter for screening for other viral diseases (principal)
CPT/HCPCS: 87635; C9803; U0003

== ENCOUNTER 2020-02-04 18:27 | Inpatient (IN) | payer MEDICAID, SELFPAY ==
[2020-02-04] VITALS (14 sets, daily range): BP systolic 90–121; BP diastolic 41–82; PULSE 76–127; RESP 14–18; TEMP 36.1–37.1; O2SAT 95–100; BMI 30.1
[2020-02-04] MEDS: Acetaminophen 500 MG Tablet 1000 MG PO ×2 (04:49→18:54)
--- NOTE | 2020-02-04 15:29 | OB.TRI.NOTE ---
History of Present Illness Date of Service: 02/04/20 Was patient seen by the physician?: No Reason For Visit: RULE OUT LABOR Final BISHNU: 02/13/20 Final BISHNU Source: LMP Gestational age: 38 Weeks and 5 Days Allergies Penicillins Allergy (Unknown, Verified 02/04/20 03:40) Diarrhea family history nickel Allergy (Verified 02/04/20 03:40) Rash venom-honey bee [bee venom (honey bee)] Allergy (Verified 02/04/20 03:40) Swelling - Pertinent Past Medical History Medical History: Past Medical History (Last Reviewed 02/10/19 @ 14:28 by Letitia Perzaa) Asthma (Chronic) Surgical History: Past Surgical History (Last Reviewed 02/10/19 @ 14:28 by Letitia Peraza) History of placement of ear tubes S/P S/P tonsillectomy and adenoidectomy Physical Exam Vitals: Vital Signs Temp Pulse BP 97.3 F L 76 111/59 L 02/04/20 07:25 02/04/20 07:25 02/04/20 07:25 NST - FHR Rate Baby A Baseline: 125 Variability:: Moderate Accelerations:: 15 x 15 Decelerations:: Variable NST Reactive:: Yes Uterine Activity:: Irregular Impression/Plan NST for false labor
[2020-02-04] MEDS: Lactated Ringers 1,000 ML 999 ML IV (17:39)
[2020-02-04 18:18] LABS: Absolute Lymphocyte Count 1.44 X10^3/uL (0.83-4.51); Absolute Neutrophil Count 5.6 X10^3/uL (2.0-7.7); Basophil# 0.01 X10^3/uL; Basophil% 0.1 % (0-1); Eosinophil# 0.08 X10^3/uL; Hematocrit 38.3 % (37-47); Lymphocyte # 1.44 X10^3/ul (4.0); Lymphocyte % 18.4 % (19-41); Mean Corp Hgb Conc 31.3 g/dL (32-36); Mean Corpuscular Hgb 26.5 pg (27.0-32.0); Mean Corpuscular Volume 84.5 fL (81-99); Mean Platelet Vol. 9.4 fl (6.2-12.0); Monocyte# 0.65 X10^3/uL; Monocyte% 8.3 % (0-10); NRBC Flagged by Analyzer 0 % (0-5); Neutrophil % 71.8 % (47-70); POSITIVE MORPHOLOGY YES; Platelet Count 269 K/mm3 (150-450); RBC Distribution Width CV 20.8 % (11.6-14.6); RBC Distribution Width SD 63.7 fl (35.1-43.9); Red Blood Count 4.53 M/mm3 (4.2-5.4); White Blood Count 7.8 K/mm3 (4.4-11.0)
[2020-02-04 18:27] LABS: Differential Indicated SCAN CRITERIA MET
[2020-02-04 18:55] LABS: Anisocytosis RARE; Differential Comment SCANNED
[2020-02-04] MEDS: Lactated Ringers 1,000 ML 150 ML IV (18:56)
[2020-02-04] MEDS: Sodium Citrate/Citric Acid 30 ML UDC PO (19:34)
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
--- NOTE | 2020-02-04 19:44 | OP.PCM_ITS ---
Report of Operation Date of Procedure: 02/04/20 Surgery/Procedure Performed:: Low transverse section with tubal s terilization via bilateral salpingectomy Description of Surgical Findings:: Normal maternal uterus and adnexa Delivery Classification: KELSIE Final BISHNU: 02/13/20 Gestational age: 38 Weeks and 5 Days sausage machine operator: Francoise Arriola Type of Anesthesia:: Spinal Date of Procedure: 02/04/20 Pre-Operative Diagnosis: (1) Prior secion (2) Sterilization request (3) Non reassuring heart tracing Post-Operative Diagnosis: Same Indications for : Repeat Elective , Desires elective sterilization, Nonreassuring Status Description of Procedure: Patient taken to OR where spinal anesthesia was placed. She was prepped and draped in the normal sterile fashion in a dorsal supine position with a leftward tilt. After ensuring adequacy of anesthesia the Pfannensteil skin incision was made and carried through to the underlying fascia with a scalpel. The fascia w as incised in the midline and carried laterally with the Flood scissors. The rectus muscles were in the midline. The peritoneum was entered bluntly. The uterus was incised in a transverse fashion and then incision extended with cephalocaudad traction. The fetus was vertex and the head was elevated to the uterine incision. With fundal pressure the head delivered. head was gently guided to allow delivery of anterior and posterior shoulders. No excess traction placed on head. Body delivered and 3VC clamped & cut in delayed fashion. Then the was handed off to the waiting RN. The placenta was delivered with gentle traction and fundal massage and the uterus was exteriorized and cleared of all clots and debris. The uterine incision was closed with 1 vicryl suture in a running locked fashion. The bovie was used to further obtain further hemostasis of the uterine incision. A second imbricating layer of monocryl was placed over the uterine incision. 2 additional figure of eight sutures were placed on the uterine incision to obtain hemostasis. Attention then turned to the fallopian tubes. Right fallopian tube grasped with a christal, doubly suture ligated and tubal segment excised. This procedure was repeat on the left fallopian tube. Tubal ligation sites were both checked and confirmed hemostatic with sutures intact. The uterus was returned to the abdominal cavity and tubal sites were checked again. The pelvis was irrigated & then cleared of all clots and debris. The uterine incision was reexamined and found to be hemostatic. Some katrina was placed over the uterine incision due to the denuded areas. The fascia was closed with looped PDS suture in a running standard fashion. The subcutaneous tissue was examined & any bleeding bovie cauterized. The subcutaneous tissue was reapproximated with plain gut suture. The skin was closed in a subcuticular fashion by the ENGINEERING EQUIPMENT OPERATOR with me present in the labor and delivery suite. I performed the remainder of the procedure w/ assistance. Amniotic Membrane Rupture Type: Spontaneous Amniotic Fluid Description: Clear Placenta Disposition: [facility] Drain: Oates to straight drain Fluids Replaced: 1,000ml crystalloid Cord Entanglement: None Cord Vessel Description: 3 Vessels Esitmated Blood Loss (ml): 800ml Infant Gender: Female - Cathy (1 minute): 8 (5 minute): 9 Delayed cord clamping: Yes Antibiotic Given: Ancef 2 grams IV x1 Complications: None - Admit VTE Documentation VTE Present on Admission: No VTE Mechan Device Prophylaxis: SCD's VTE Pharm Prophylaxis ordered?: Yes
[2020-02-04] MEDS: Cefazolin 2 GM in 0.9% Normal Saline 100 ML IV (19:45)
--- NOTE | 2020-02-04 20:10 | FALS_PTH ---
PATIENT: CORNELIUS ROBERTSON LOC: [facility] U#:[id number] AGE/SX: 24/ ROOM: WP008 RE02/04/[address]: Dr. Pinky Ruffin MD : 1995 BED: 1 DIS: 02/06/2020 SPEC #: [id number] RECD: 02/05/20 07:32 STATUS: VASU RERayray #: [id number] YARITZA: 02/04/20 20:[address]: Pinky Ruffin DEPT: SURGICAL PATHOLOGY RECD BY: Goyo Colon ENTERED: 02/05/20 07:34 SP TYPE: FALL TUBES OTHR DR: Dr. Dragan Rosenbaum MD Tissues: Fallopian tube Procedures: Surgery Specimen Level II HEADER OPERATION: Tubal ligation PRE-OP DIAGNOSIS: Sterilization TISSUE SUBMITTED: Fallopian tubes MICROSCOPIC DIAGNOSIS Bilateral fallopian tubes, tubal ligation: Completely transected segments of bilateral fallopian tubes, no pathologic diagnosis. RORY:sydni 02/06/20 MICROSCOPIC DESCRIPTION Slides are reviewed. GROSS DESCRIPTION Received in fixative is one container labeled with the patient's name and designated bilateral fallopian tubes. The specimen consists of two tubular pieces of renteria soft tissue measuring 1 cm in length and 0.5 cm in diameter and 0.6 cm in length and 0.5 cm in diameter. The specimen is not oriented. The entire specimen is submitted in two cassettes with each cassette containing one tube. Both pieces will be sectioned at the time of embedding. / RORY:sydni 02/05/20 TC:4 CPT: 70400 x2
[2020-02-04] MEDS: Oxytocin 30 units/NS 500 ml 30 UNITS/500 ML IV.SOLN 167 UNITS IV (21:13)
--- NOTE | 2020-02-04 22:14 | NURSING ---
rhogam workup to be completed by the end of recovery per this RN.
--- NOTE | 2020-02-04 23:08 | NURSING ---
pt states she is already CPR certified and declines the need for CPR tablet at this time.
[2020-02-05] VITALS (15 sets, daily range): BP systolic 88–107; BP diastolic 46–72; PULSE 76–108; RESP 14–20; TEMP 36.2–36.6; O2SAT 97–100
[2020-02-05] MEDS: Lactated Ringers 1,000 ML 100 ML IV (00:13)
[2020-02-05] MEDS: Acetaminophen 500 MG Tablet 1000 MG PO ×4 (02:00→20:18)
[2020-02-05] MEDS: Ketorolac 30 MG/ML Syringe IV ×3 (02:01→14:48)
[2020-02-05] MEDS: 0.9% Saline Lock 10 ML Syringe IV ×3 (02:01→14:49)
[2020-02-05 02:39] LABS: Pathology Specimen OB SEE PATHOLOGY REPORT
[2020-02-05 03:40] LABS: Hematocrit 28.5 % (37-47); Hemoglobin 8.7 g/dL (12.0-15.0); Mean Corp Hgb Conc 30.5 g/dL (32-36); Mean Corpuscular Volume 85.3 fL (81-99); POSITIVE MORPHOLOGY YES; Platelet Count 179 K/mm3 (150-450); RBC Distribution Width CV 20.4 % (11.6-14.6); Red Blood Count 3.34 M/mm3 (4.2-5.4); White Blood Count 9.2 K/mm3 (4.4-11.0)
[2020-02-05 03:47] LABS: Scan Indicated on CBC? Y/N YES- FLAGS NOTED
[2020-02-05 06:51] LABS: Differential Comment SCANNED
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
[2020-02-05] MEDS: Senna/Docusate Sodium 1 Tablet PO (10:04)
[2020-02-05] MEDS: Enoxaparin 40 MG/0.4 ML Syringe SC (10:05)
[2020-02-05] MEDS: Ferrous Sulfate 325 MG Tablet PO ×2 (10:05→17:19)
[2020-02-05] MEDS: Ibuprofen 600 MG Tablet PO (20:18)
[2020-02-05] MEDS: oxyCODONE 5 MG Tablet PO (22:04)
[2020-02-06] MEDS: Acetaminophen 500 MG Tablet 1000 MG PO ×2 (02:30→07:56)
[2020-02-06] MEDS: Ibuprofen 600 MG Tablet PO ×2 (02:30→07:54)
[2020-02-06 02:33] VITALS: BP 100/51; PULSE 81; RESP 18; TEMP 36.4; O2SAT 97
[2020-02-06] MEDS: oxyCODONE 5 MG Tablet PO ×2 (04:26→12:25)
[2020-02-06 04:56] LABS: Absolute Lymphocyte Count 0.74 X10^3/uL (0.83-4.51); Absolute Neutrophil Count 5.6 X10^3/uL (2.0-7.7); Basophil# 0.01 X10^3/uL; Basophil% 0.1 % (0-1); Eosinophil# 0.19 X10^3/uL; Eosinophils% 2.7 % (0-5); Hematocrit 29.3 % (37-47); Hemoglobin 8.8 g/dL (12.0-15.0); Lymphocyte # 0.74 X10^3/ul (4.0); Lymphocyte % 10.5 % (19-41); Mean Corpuscular Hgb 26.5 pg (27.0-32.0); Mean Corpuscular Volume 88.3 fL (81-99); Mean Platelet Vol. 9.4 fl (6.2-12.0); Monocyte# 0.46 X10^3/uL; Monocyte% 6.5 % (0-10); NRBC Flagged by Analyzer 0 % (0-5); Neutrophil # 5.62 X10^3/uL (2.7-7.7); Neutrophil % 79.6 % (47-70); POSITIVE MORPHOLOGY YES; Platelet Count 173 K/mm3 (150-450); RBC Distribution Width CV 20.7 % (11.6-14.6); RBC Distribution Width SD 66.2 fl (35.1-43.9); Red Blood Count 3.32 M/mm3 (4.2-5.4); White Blood Count 7.1 K/mm3 (4.4-11.0)
[2020-02-06 04:57] LABS: Differential Indicated SCAN CRITERIA MET
[2020-02-06 05:50] LABS: Differential Comment SCANNED
[2020-02-06 05:53] LABS: Anisocytosis 1+
[2020-02-06 05:54] LABS: Macrocytosis RARE
[2020-02-06 05:55] LABS: Microcytosis RARE
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
[2020-02-06 08:20] VITALS: BP 93/65; PULSE 89; RESP 16; TEMP 36.1
[2020-02-06] MEDS: Enoxaparin 40 MG/0.4 ML Syringe SC (10:06)
[2020-02-06] MEDS: Ferrous Sulfate 325 MG Tablet PO (10:06)
[2020-02-06] MEDS: Senna/Docusate Sodium 1 Tablet PO (10:06)
--- NOTE | 2020-02-06 12:05 | DCINST_ITS ---
Discharge Diet: No Restrictions Discharge Activity: May not drive while taking narcotic pain medications. May resume sexual activity in: 6-8 weeks Additional Instructions: If you experience any of the following, contact your healthcare provider. * Bleeding that soaks a pad every hour for 2 hours * Fever 100.4 or higher * Unrelieved incision or abdominal pain * Swelling, redness, discharge or bleeding from your incision or episiotomy site * Your incision begins to separate * Problems urinating (including inability to urinate or burning while urinating). * Visual changes * Severe headache * Flu-like symptoms * Pain or redness in one of both of your breasts * Pain, warmth, tenderness or swelling in your legs, especially the calf area * Frequent nausea and vomiting * Symptoms of depression or anxiety If you experience any of the following, call 911 or go to the nearest Emergency Room. * Chest pain * Problems breathing * Seizure activity * Partial or complete paralysis of a body part, slurred speech, weakness or drooping of the face, or a sudden inability to walk or hold your balance Allergies/Adverse Reactions: Allergies Penicillins Allergy (Unknown, Verified 02/04/20 03:40) Diarrhea family history nickel Allergy (Verified 02/04/20 03:40) Rash venom-honey bee [bee venom (honey bee)] Allergy (Verified 02/04/20 03:40) Swelling Medications to take at Discharge Enoxaparin Sodium [Lovenox] 1 syringe SQ DAILY 11/02/19 Tablet 1 tab PO DAILY 01/21/20 Follow-Up: Call to make an appointment with your doctor for an incision check in 1-2 weeks. You will also need a 6 week post- follow up appointment. Test results from this visit will be discussed in further detail at your follow- up appointment, if applicable. Primary Care Physician: Dragan Rosenbaum MD [Primary Care Provider] -
--- NOTE | 2020-02-06 12:05 | PCM.DCCSEC ---
Discharge Diet: No Restrictions Discharge Activity: May not drive while taking narcotic pain medications. May resume sexual activity in: 6-8 weeks Additional Instructions: If you experience any of the following, contact your healthcare provider. Bleeding that soaks a pad every hour for 2 hours Fever 100.4 or higher Unrelieved incision or abdominal pain Swelling, redness, discharge or bleeding from your incision or episiotomy site Your incision begins to separate Problems urinating (including inability to urinate or burning while urinating). Visual changes Severe headache Flu-like symptoms Pain or redness in one of both of your breasts Pain, warmth, tenderness or swelling in your legs, especially the calf area Frequent nausea and vomiting Symptoms of depression or anxiety If you experience any of the following, call 911 or go to the nearest Emergency Room. Chest pain Problems breathing Seizure activity Partial or complete paralysis of a body part, slurred speech, weakness or drooping of the face, or a sudden inability to walk or hold your balance Allergies/Adverse Reactions: Allergies Penicillins Allergy (Unknown, Verified 02/04/20 03:40) Diarrhea family history nickel Allergy (Verified 02/04/20 03:40) Rash venom-honey bee [bee venom (honey bee)] Allergy (Verified 02/04/20 03:40) Swelling Medications to take at Discharge Enoxaparin Sodium [Lovenox] 1 syringe SQ DAILY 11/02/19 Tablet 1 tab PO DAILY 01/21/20 Follow-Up: Call to make an appointment with your doctor for an incision check in 1-2 weeks. You will also need a 6 week post- follow up appointment. Test results from this visit will be discussed in further detail at your follow-up appointment, if applicable. Primary Care Physician: Dragan Rosenbaum MD [Primary Care Provider] -
--- NOTE | 2020-02-06 12:07 | PCM.DC.SUM ---
Discharge Date and Diagnosis Date of Admission: 02/04/20 Date of Discharge: 02/06/20 - Secondary Discharge Diagnosis Chronic Problems: Chronic Problems (Last Updated 02/04/20 @ 19:[address] Pinky Ruffin MD) Rh negative status during (Chronic) rhogam 28 weeks or bleeding PRN History of depression (Chronic) monitor for symptoms History of pulmonary embolus (PE) (Chronic) , 40mg lovenox BID Gonorrhea affecting (Chronic) Rocephin given Chlamydia infection affecting (Chronic) 01/26 treated. Repeat at 36 wk Asthma (Chronic) Hospital Course and Treatment Operations: None Summary of Care Provided: The patient is a 24 year old F here for repeat section with bilateral tubal ligation. Hospital course was uncomplicated. Discharged home on daily Lovenox SQ due to history of PE and being a surgical patient. - Physical Exam Vitals/I&O's: Vital Signs Temp Pulse Resp BP Pulse Ox 97 F L 89 16 93/65 97 02/06/20 08:20 02/06/20 08:20 02/06/20 08:20 02/06/20 08:20 02/06/20 02:33 Oxygen Delivery Method Room Air Weight: 159 lb 6.307 oz Body Mass Index (BMI) 30.1 Finger Stick Blood Glucose 99 Intake and Output for Last 24 Hours 02/04/20 02/05/20 02/06/20 23:59 23:59 23:59 Intake Total 1465 / 1465 1200 / 1200 Output Total 120 / 120 800 / 800 Balance 1345 / 1345 400 / 400 Laboratory Results 02/06/20 04:35: WBC 7.1, RBC 3.32 L, Hgb 8.8 L, Hct 29.3 L, MCV 88.3, MCH 26.5 L, MCHC 30.0 L, RDW Std Deviation 66.2 H, RDW Coeff of Isma 20.7 H, Plt Count 173, MPV 9.4, Immature Gran % (Auto) 0.600, Neut % (Auto) 79.6 H, Lymph % (Auto) 10.5 L, [place] % (Auto) 6.5, Eos % (Auto) 2.7, Baso % (Auto) 0.1, Absolute Neuts (auto) 5.6, Absolute Lymphs (auto) 0.74 L, Nucleated RBC % 0, Differential Comment SCANNED, Anisocytosis 1+, Microcytosis RARE, Macrocytosis RARE Current Medications Acetaminophen (Acetaminophen 500 Mg Tablet) 1,000 mg PO Q6H [facility] Last Admin: 02/06/20 07:56 Dose: 1,000 mg Documented by: Bisacodyl (Bisacodyl 10 Mg Suppository) 10 mg RECTAL UD PRN PRN Reason: If no BM Enoxaparin Sodium (Enoxaparin 40 Mg/0.4 Ml Syringe) 40 mg SC DAILY [facility] Last Admin: 02/06/20 10:06 Dose: 40 mg Documented by: Ferrous Sulfate (Ferrous Sulfate 325 Mg Tablet) 325 mg PO 1200,1700 [facility] Last Admin: 02/06/20 10:06 Dose: 325 mg Documented by: Hydrocortisone (Hydrocortisone 2.5% Crm) 1 applic TOPICAL TID PRN PRN; Protocol PRN Reason: Discomfort Ibuprofen (Ibuprofen 600 Mg Tablet) 600 mg PO Q6H [facility] Last Admin: 02/06/20 07:54 Dose: 600 mg Documented by: Methylergonovine Maleate (Methylergonovine 0.2 Mg/Ml Ampul) 0.2 mg IM X1 PRN PRN Reason: Uterine Atony Naloxone HCl (Naloxone 0.4 Mg/Ml Syringe) 0.02 mg IV Q1M PRN PRN Reason: RR <10 and pt unresponsive Ondansetron HCl (Ondansetron 4 Mg/2 Ml Vial) 4 mg IV Q4H PRN PRN PRN Reason: Nausea Oxycodone HCl (Oxycodone 5 Mg Tablet) 5 - 10 mg PO Q4H PRN PRN PRN Reason: Pain Score 4-10 Last Admin: 02/06/20 04:26 Dose: 10 mg Documented by: Prochlorperazine Edisylate (Prochlorperazine 10 Mg/2 Ml Vial) 10 mg IV Q6H PRN PRN PRN Reason: NAUSEA Senna/Docusate Sodium (Senna/Docusate Sodium 1 Tablet) 0 tablet PO DAILY [facility] Last Admin: 02/06/20 10:06 Dose: 1 tablet Documented by: Simethicone (Simethicone 80 Mg Tablet) 80 mg PO PCHS PRN PRN Reason: Indigestion/stomach pain Last Admin: 02/06/20 02:41 Dose: 80 mg Documented by: Sodium Chloride (0.9% Saline Lock 10 Ml Syringe) 5 - 15 ml IV UD PRN PRN Reason: SALINE FLUSH Last Admin: 02/05/20 14:49 Dose: 10 ml Documented by: Discharge Diet: No Restrictions Discharge Activity: May not drive while taking narcotic pain medications. May resume sexual activity in: 6-8 weeks Home Medications: Medications to take at Discharge Enoxaparin Sodium [Lovenox] 1 syringe SQ DAILY 11/02/19 Tablet 1 tab PO DAILY 01/21/20 Primary Care Physician: Dragan Rosenbaum MD [Primary Care Provider] - Medical Necessity - Tobacco Use Smoking Status: Never smoker Meaningful Use Info Meaningful Use Diagnoses (Choose all that apply): None applicable
[2020-02-06 12:49] VITALS: BP 104/63; PULSE 96; RESP 16; TEMP 36.2
== END 2020-02-06 13:00 | disposition home or self-care (01) | DRG 539 ==
LOC: WPOUT 18:36 → WP 18:36
PROVIDERS: Advanced Practice Midwife; Admitting Provider Obstetrics & Gynecology; PCP Family Medicine; Referring Provider Obstetrics & Gynecology; Visit Provider Obstetrics & Gynecology
DX: O34.211 Maternal care for low transverse scar from previous cesarean delivery (principal); Z30.2 Encounter for sterilization; Z3A.38 38 weeks gestation of pregnancy; Z37.0 Single live birth; O76 Abnormality in fetal heart rate and rhythm complicating labor and delivery; J45.909 Unspecified asthma, uncomplicated; O99.52 Diseases of the respiratory system complicating childbirth; Z86.711 Personal history of pulmonary embolism
CPT/HCPCS: 59025; 59050; 85025; 85027; 85461; 86850; 86900; 86901; 88302; 90384; 99218; J7120; A4216; G0378; J2405; J2790

== ENCOUNTER 2020-03-07 01:33 | Inpatient (IN) | payer MEDICAID, SELFPAY ==
[2020-02-04 03:42] VITALS: BMI 30.1
[2020-03-07] VITALS (7 sets, daily range): BP systolic 92–121; BP diastolic 59–83; PULSE 59–86; RESP 16–18; TEMP 36.2–36.9; O2SAT 97–100; BMI 26.0; BMI 23.1; BMI 23.2
--- NOTE | 2020-03-07 01:40 | CT_ITS ---
We are attempting to reach an attending provider to discuss findings. An addendum with communication details will be sent when the communication is complete. STUDY: CT ABDOMEN AND PELVIS WITH CONTRAST REASON FOR EXAM: Female, 24 years old. LOW RT SIDED ABDOMEN PAIN WITH VAGINAL DISCHARGE,POST 4 WEEKS WITH -- Hx: asthma RADIATION DOSAGE (If Supplied By Facility): CTDIvol = ( 22.46 ) mGy, DLP = ( 597.00 ) mGycm TECHNIQUE: Transaxial 3.75 mm images were obtained from the dome of the diaphragm to the symphysis pubis without oral contrast. IV 100mL Isovue-370 was administered. Sagittal and coronal images were reconstructed. Individualized dose optimization techniques were used for this CT. COMPARISON: CT abdomen pelvis 06/11/2014. CT chest 12/14/2019 FINDINGS: The visualized lung bases are unremarkable. The visualized portions of the heart are within normal limits. Normal liver. Normal gallbladder and extrahepatic biliary system. Normal spleen. Normal pancreas. Normal bilateral adrenal glands. Normal right kidney. Normal left kidney. Normal visualized stomach. Normal small intestine. Normal colon. The retrocecal appendix is visualized and appears normal in diameter however its contour is indistinct adjacent to the right ovarian vein. Normal abdominal aorta. Normal inferior vena cava. Normal retroperitoneum. Ovarian veins demonstrate intraluminal filling defect, there is tortuosity and luminal dilation on the left side with a diameter extending to 1.2 cm, central luminal filling defect 0.6 cm. The right ovarian vein is less enhancing, there is however central luminal filling defect which is less apparent. The distal left ovarian vein adjacent to the left ovary demonstrates no filling defect. There are bilateral pelvic varices left greater in enhancement compared to right arising of the bilateral internal iliac veins. There is minimal fat stranding in the bilateral lower abdomen/pelvis. Compressed urinary bladder. Uterus is slightly heterogeneous enhancing and enlarged measuring 6 x 7.5 x 10 cm with low attenuation within the endometrium and along a defect of the lower uterine segment likely representing the site, mild low attenuation anterior to the site slightly denser than expected water, possible component of minimal residual hematoma. No acute contrast extravasation detected. Fluid anterior to the lower uterine segment measures approximately 0.5 x 4.8 cm and is difficult to separate from the contracted urinary bladder. There is low attenuation of the ovaries most frequently due to follicular cysts. Postsurgical changes suprapubic, no subcutaneous collection or abscess.. Normal osseous structures. 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 Both ovaries demonstrate enhancement with cystic and follicular pattern. Fat infiltration along the bilateral lower abdomen, possible due to surgical intervention and ovarian vein pathology. The appendix is visualized, is minimally indistinct along the right ovarian vein course. This may be a reactive changes. Early acute primary appendicitis cannot be excluded on the images. Postsurgical and changes of the uterus. Minimal fluid anterior to the site may contain residual hemorrhagic component, no acute hemorrhage or contrast extravasation detected. Electronically Signed: Renee Bacon MD at 3:26 EST , Service support ,
[2020-03-07 01:54] LABS: Absolute Lymphocyte Count 2.29 X10^3/uL (0.83-4.51); Basophil# 0.02 X10^3/uL; Basophil% 0.2 % (0-1); Eosinophil# 0.27 X10^3/uL; Eosinophils% 3.3 % (0-5); Hemoglobin 12.7 g/dL (12.0-15.0); Lymphocyte # 2.29 X10^3/ul (4.0); Lymphocyte % 28.1 % (19-41); Mean Corpuscular Hgb 26.3 pg (27.0-32.0); Mean Corpuscular Volume 84.9 fL (81-99); Monocyte# 0.58 X10^3/uL; Monocyte% 7.1 % (0-10); NRBC Flagged by Analyzer 0 % (0-5); Neutrophil # 4.98 X10^3/uL (2.7-7.7); Neutrophil % 61.1 % (47-70); Platelet Count 316 K/mm3 (150-450); RBC Distribution Width CV 16.7 % (11.6-14.6); RBC Distribution Width SD 52.2 fl (35.1-43.9); Red Blood Count 4.83 M/mm3 (4.2-5.4); White Blood Count 8.2 K/mm3 (4.4-11.0)
[2020-03-07 01:56] LABS: Mucous, Urine 0 SEEN /hpf (<or=2+)
[2020-03-07] MEDS: Dicyclomine 10 MG Capsule 20 MG PO (02:00)
[2020-03-07] MEDS: Ondansetron 4 MG/2 ML Vial IV (02:00)
[2020-03-07 02:05] LABS: Color, Urine Yellow (Yellow); Glucose, Dipstick Normal (Normal); Ketone-Dipstick 5 mg/dl (Negative); Leukocyte Esterase-Dipstick 500 /ul (Negative); Nitrite-Dipstick Negative (Negative); Occult Blood-Urine 10 /ul (Negative); Protein-Dipstick 30 mg/dl (Negative); Specific Gravity, Urine 1.025 (1.002-1.030); Urine Clarity Cloudy (Clear); Urine Urobilinogen 1 mg/dl (Normal)
[2020-03-07 02:07] LABS: Urine Bilirubin Dipstick 1 mg/dL (Negative)
[2020-03-07 02:08] LABS: ALB/GLOB Ratio 1.1 RATIO (0.9-2.4); AST(SGOT) 10 U/L (15-37); Alanine Aminotransfer ALT/SGPT 18 U/L (13-56); Albumin, Serum 3.9 g/dL (3.2-5.0); Alkaline Phosphatase 119 U/L (45-117); Anion Gap 7 (5-15); BUN 16 mg/dL (7-18); Chloride 106 mmol/L (98-107); Creatinine, Serum 1.33 mg/dL (0.55-1.02); EST Glomerular Filtration Rate 53 mL/min (>60); Est Glom Filt Rate - Afr Amer 64 mL/min (>60); Estimated Creatinine Clearance 50.07 ml/min; Globulin 3.6 g/dL (2.2-4.2); Glucose 103 mg/dL (74-106); Potassium 3.3 mmol/L (3.5-5.1); Protein, Total 7.5 g/dL (6.4-8.2); Sodium Level 140 mmol/L (136-145)
[2020-03-07 02:12] LABS: Bacteria RARE /hpf (None Seen); Internal QC Validated? YES +Cl - CLEAR BKGD; Pregnancy, Urine Negative Negative; Red Blood Cells-Urine 10-25 SEEN /hpf (0-5); Squamous Epithelial Cells - UA 5-10 SEEN /hpf (5-10); White Blood Cells 0-5 SEEN /hpf (0-5)
[2020-03-07 03:34] LABS: Neisserai gonorrhoeae by PCR Negative (Negative); Probe Check PASS
[2020-03-07 03:35] LABS: Chlamydia Trachomatis by PCR POSITIVE (Negative); Sample Adequacy Control PASS; Specimen Processing Control PASS
[2020-03-07] MEDS: Azithromycin 250 MG Tablet 1000 MG PO (04:09)
[2020-03-07] MEDS: Ceftriaxone 500 MG Vial 250 MG IM (04:09)
--- NOTE | 2020-03-07 04:16 | ED.VISSUMM ---
- ER Visit Summary Date of Service: 03/07/20 Chief Complaint: Abdominal pain, vaginal discharge History of Present Illness: The patient is a 24 F who presents with abdominal pain and vaginal discharge. Pain has been ongoing for 3 days. She states this is worse on the right-hand side in the right lower quadrant/pelvic region. She has not had a yellowish vaginal discharge as well. She has had a single sexual partner recently. She had a 4 weeks ago and has had no issues with this. She denies any nausea or vomiting. She does admit to some diarrhea as well. She took nothing for this at home. She is breast-feeding currently. Physical Examination: Vital signs reviewed. HEENT exam unremarkable. Heart is regular rate and rhythm without murmurs. Lungs are clear to auscultation. Abdomen is soft tenderness on the right lower side. There is no guarding or rebound tenderness. Extremities reveal no edema. Skin exam normal. Neurologic exam normal. Test Results: Laboratory studies show a normal white blood cell count. Potassium 3.3, creatinine 1.33, alkaline phosphatase 119. Urinalysis has 10-25 red blood cells. hCG negative. 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 There are also other postsurgical changes Emergency Department Course and Treatment: She was initially given Bentyl and Zofran. Chlamydia test came back positive so she was given a azithromycin and Rocephin. I reevaluated her after the CAT scan. Her pain is more localized into the right pelvic region. She has no tenderness at McBurney's point. At this point I spoke with COURT WORKER, Dr. Ruffin. She saw this patient earlier this week. The patient has a history of PE which she did not disclose to us. She is supposed to be on Lovenox for 6 weeks after her but she stopped taking it. Dr. Ruffin recommended admission to the hospital on a heparin drip. This was discussed with the patient and she will be admitted to [facility] Treatment Plan: [] Disposition: Admit Impression: Ovarian vein thrombosis, chlamydia This note was generated with Immediaation software. It may contain incorrect words, spelling, and punctuation that were not noted in review of the chart prior to signing ED Disposition - Plan for ED Patient: Referrals: Dragan Rosenbaum MD [Primary Care Provider] -
[2020-03-07] MEDS: Heparin Injection (Vial) 5,000 UNIT/ML VIAL 4500 UNIT IV (04:42)
[2020-03-07] MEDS: HEPARIN/D5w 25,000 UNITS 25,000 UNITS/250 ML IV.SOLN. 10 UNITS IV (04:43)
--- NOTE | 2020-03-07 08:46 | HP.PCM_ITS ---
Problem List (1) Thrombosis of ovarian vein Status: Acute (2) Chlamydia infection Status: Acute History and Physical Date of Admission: 03/07/20 Patient presented to [facility] ED with complaints of lower right pelvic pain and increased vaginal discharge. She is 6 weeks post -op section. Rating pain 5/10 and it started a couple of days ago. Pain is not at incision site. recovery has been uneventful. She has a history of a DVT and was ordered Lovenox SQ when discharged home from c/s but she stopped medication.
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
[2020-03-07] MEDS: oxyCODONE 5 MG Tablet PO ×2 (09:17→17:18)
[2020-03-07] MEDS: Ibuprofen 600 MG Tablet PO ×2 (09:18→17:18)
[2020-03-07 11:04] LABS: Partial Thromboplast Time 67.1 Seconds (24.1-36.2)
[2020-03-07] MEDS: Enoxaparin 60 MG/0.6 ML Syringe SC ×2 (12:07→19:14)
[2020-03-07] MEDS: Sertraline 50 MG Tablet PO (17:18)
--- NOTE | 2020-03-07 18:36 | NURSING ---
Pt requesting dual breastpump. Defective single breast pump, no suction.
[2020-03-08 03:25] VITALS: BP 99/62; PULSE 74; RESP 14; TEMP 36.4; O2SAT 99
[2020-03-08] MEDS: Enoxaparin 60 MG/0.6 ML Syringe SC (06:29)
[2020-03-08 06:46] LABS: Hematocrit 38.6 % (37-47); Hemoglobin 11.7 g/dL (12.0-15.0); Mean Corp Hgb Conc 30.3 g/dL (32-36); Mean Corpuscular Hgb 26.2 pg (27.0-32.0); Mean Corpuscular Volume 86.4 fL (81-99); Platelet Count 252 K/mm3 (150-450); RBC Distribution Width CV 17.1 % (11.6-14.6); Red Blood Count 4.47 M/mm3 (4.2-5.4); White Blood Count 6.4 K/mm3 (4.4-11.0)
[2020-03-08] MEDS: Ibuprofen 600 MG Tablet PO (07:19)
[2020-03-08] MEDS: oxyCODONE 5 MG Tablet PO (07:19)
[2020-03-08 07:37] VITALS: BP 102/66; PULSE 73; RESP 16; TEMP 36.7; O2SAT 98
[2020-03-08] MEDS: Ceftriaxone 500 MG Vial 250 MG IM (09:35)
--- NOTE | 2020-03-08 11:50 | CASEMGMT ---
RN PEDRO Face to Face with patient for initial transition planning/care coordination assessment. RN CM introduced self and role at [facility]. Patient lying in bed, alert and oriented. Patient willing to participate in assessment and is able to answer all questions appropriately. Care providers, pharmacy, and demographics verified. Patient wishes to discharge home, denies need for home health at this time. Patient states she has no further needs or concerns at this time. CM to follow for discharge planning needs that may arise. PCP: Robi Specialists: MARILIN Ruffin Preferred Pharmacy: [facility] Insurance: [employer] Prescription Benefit: yes Living Will/HPOA: none LNOK: step mother Living Arrangements: Patient lives with her 4 children(3yo, 2yo, almost 1yo, and 1 month old) Transportation: self/friend DME/HHC: Patient denies DME or previous HHC Disposition Plan: Patient to discharge home with follow-up plans in place. Maru GARCIA, RN, CM
[2020-03-08 13:28] VITALS: BP 106/68; PULSE 82; RESP 18; TEMP 36.6; O2SAT 96
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
--- NOTE | 2020-03-08 14:06 | DCINST_ITS ---
- Discharge Diagnoses Current Active Problems: Current Active and Chronic Problems (Last Updated 02/04/20 @ 19:[address] Pinky Ruffin MD) Thrombosis of ovarian vein (Acute) Chlamydia infection (Acute) You will use the following diet at home:: No restrictions, Regular Your food should be the consistency of: Regular Discharge Activity: No Restrictions May resume sexual activity in: 1-2 weeks Weight Bearing Status: Weight bearing as tolerated Lifting Restrictions: No restrictions Call your doctor if you observe: Fever of 101 or Higher, Inability to urinate, Inability to have a bowel movement, Using more than one pad per hour, Shortness of breath, Dizziness, Calf discomfort, Uncontrolled pain Allergies/Adverse Reactions: Allergies Penicillins Allergy (Unknown, Verified 03/07/20 01:34) Diarrhea family history nickel Allergy (Verified 03/07/20:34) Rash venom-honey bee [bee venom (honey bee)] Allergy (Verified 03/07/20 01:34) Swelling Medications to take at Discharge Sertraline HCl [Zoloft] 50 mg PO DAILY 03/07/20 Enoxaparin [Lovenox] 61.235 mg SC Q12@0600,1800 #10 syringe 03/08/20 The following prescriptions were given: Enoxaparin [Lovenox] 61.235 mg SC Q12@0600,1800 #10 syringe Transmission Status: Pending to [id number] Primary Care Physician: Dragan Rosenbaum MD [Primary Care Provider] - Test Results: Test results from this visit will be discussed in further detail at your follow- up appointment, if applicable. Please Follow Up With: Pinky Ruffin MD When: 1 week
[2020-03-08 14:45] VITALS: BP 106/68; PULSE 82; RESP 18; TEMP 36.6; O2SAT 96
--- NOTE | 2020-03-11 15:19 | CASEMGMT ---
ROSEMARIE CM Discharge Follow-up Phone Call: RITO: 12 Strata: 3 Call Date: 03/11/20 Discharge Date: 03/08/20 Time of Call: 1515 Duration: 1 min Admitting Diagnosis: Lower abd pain with vaginal [employer] res[employer] CM attempted to complete follow-up phone call after recent hospitalization. No answer, voice message left with return contact information.
== END 2020-03-08 14:45 | disposition home or self-care (01) | DRG 561 ==
LOC: ED 02:02 → MS3 04:30
PROVIDERS: Admitting Provider Advanced Practice Midwife; Emergency Provider Emergency Medicine; PCP Family Medicine; Visit Provider Advanced Practice Midwife
DX: O87.0 Superficial thrombophlebitis in the puerperium (principal); A74.89 Other chlamydial diseases; J45.909 Unspecified asthma, uncomplicated; Z86.711 Personal history of pulmonary embolism; Z86.718 Personal history of other venous thrombosis and embolism; Z79.02 Long term (current) use of antithrombotics/antiplatelets; Z79.899 Other long term (current) drug therapy
CPT/HCPCS: 36415; 74177; 80053; 81001; 81025; 85025; 85027; 85730; 87491; 87591; 99284; Q9967; A4216; J2405